=== PATIENT | female | born 1980 | race Caucasian/White ===

== ENCOUNTER 2016-11-16 17:44 | Emergency (ER) | payer BC ==
[~2016-11-16] VITALS: Ht 157.5 cm; Wt 105.7 kg
[~2016-11-16 17:44] MED LIST: CALC625T35 PO; GABA-112 PO; LMC25 PO; LORA-741 PO; QUET5TAB PO
[2016-11-16 17:54] VITALS: Ht 157.5 cm; Wt 105.7 kg
[2016-11-16] MEDS ORDERED: SODIUM CHLORIDE 0.9% 1000ML 1,000 ML IV STA (18:38)
[2016-11-16] MEDS ORDERED: IBUPROFEN 800 MG TAB PO STA (18:38)
[2016-11-16] MEDS ORDERED: IBUPROFEN 200 MG TAB ONE (18:59)
[2016-11-16 19:04] LABS: BASO % 0.2 %; BASO ABS # 0.02 K/uL (0-0.2); COMPLETE YES; EOS % 1.6 %; HEMATOCRIT 38.4 % (37-47); IG% 0.7 %; LYMPH ABS # 1.73 K/uL (1.2-3.4); MEAN CELL VOLUME 80.3 fL (80-100); MEAN CORPUSCULAR HEMOGLOBIN 26.4 pg (25-34); MEAN CORPUSCULAR HGB CONC 32.8 g/dl (32-36); MONO % 5.6 %; NEUT % 70.9 %; PLATELET COUNT 207 K/uL (130-400); RED BLOOD COUNT 4.78 M/uL (4.2-5.4); WHITE BLOOD COUNT 8.24 K/uL (4.8-10.8)
[2016-11-16 19:22] LABS: BUN/CREATININE RATIO 11.3 (10-20); CALCIUM 9.2 mg/dl (8.5-10.1); CREATININE 0.7 mg/dl (0.60-1.20); POTASSIUM 3.8 mmol/L (3.5-5.1)
[2016-11-16 19:25] LABS: ALB/GLOB RATIO 0.9 (0.9-2)
[2016-11-16] MEDS ORDERED: ATV5X PO (19:30)
--- NOTE | 2016-11-16 19:30 | DIAGNOSTIC IMAGING REPORT ---
CHEST 2 VIEWS ROUTINE CLINICAL HISTORY: cough, fever COMPARISON STUDY: 08/24/2016 FINDINGS: The heart is mildly enlarged. There is no focal pulmonary consolidation. There is no failure. There are no pleural effusions.[ IMPRESSION: Mild cardiomegaly. No acute findings. Electronically signed by: Juanito Adkins M.D. 11/16/2016 7:29 PM Dictated Date/Time: 11/16/2016 7:28 PM
[2016-11-16] MEDS ORDERED: BENZ1CAP90 PO (20:37)
[2016-11-16] MEDS ORDERED: ONDA4TAB10 SL (20:37)
[2016-11-16] MEDS ORDERED: HYDR5SYP11 PO (20:37)
--- NOTE | 2016-11-16 20:38 | EMERGENCY ROOM VISIT NOTE ---
History First contact with patient: 18:23 Chief Complaint: FLU LIKE SX Stated Complaint: COUGH,CHEST PAIN,HEADACHE History of Present Illness The patient is a 36 year old female who presents to the Emergency Room with complaints of flulike symptoms. The patient reports that she has had a cough, sinus congestion, body aches and intermittent headaches for the past 4 days. She states the cough has been productive of whitish yellow mucus. She has had some rib and back pain with coughing, but denies pain at rest. The patient has had nausea with multiple episodes of vomiting. She denies any diarrhea. She denies any chest pain or shortness of breath. She denies any abdominal pain. She has not been taking her temperature. She is been trying [id number] medications without relief. She rates her discomfort a 9/10. The patient did not receive a flu vaccine this year. She denies any neck pain or stiffness. Review of Systems A complete 10-point Review of Systems was discussed with the patient, with pertinent positives and negatives listed in the History of Present Illness. All remaining Review of Systems questions can be considered negative unless otherwise specified. Past Medical/Surgical History Medical Problems: (1) Appendectomy (2) Cholecystectomy (3) Endometriosis (4) ITP (idiopathic thrombocytopenic purpura) (5) Kidney stone (6) Migraine (7) Migraines (8) Pyelonephritis (9) Shingles (10) UTI (urinary tract infection) Surgical Problems: (1) H/O: hysterectomy (2) History of appendectomy (3) History of cholecystectomy (4) S/P total hysterectomy and bilateral salpingo-oophorectomy Family History Diabetes mellitus FH: cancer FH: gallbladder disease FH: lung disease Hypertension Kidney disease Kidney stones Seizures Social History Smoking Status: Never Smoker Alcohol Use: occasionally Drug Use: none Marital Status: Housing Status: lives with family Occupation Status: employed Current/Historical Medications Scheduled Gabapentin (Neurontin), 100 MG PO TID Lamotrigine (Lamotrigine), 50 MG PO HS Ondasetron Odt (Zofran Odt), 4 MG SL Q6H Quetiapine Fumarate (Seroquel), 200 MG PO HS Sertraline (Zoloft), 150 MG PO HS Scheduled PRN Benzonatate (Tessalon Perles), 200 MG PO TID PRN for Cough Epinephrine (Epipen), 0.3 MG IM UD PRN for ALLERGIC REACTION Hydrocodone W/ Homatropine (Hycodan 5/1.5MG 5 Ml), 5-10 ML PO Q4H PRN for Cough Lorazepam (Lorazepam), 0.5 MG PO DAILY PRN for Anxiety Rizatriptan Benzoate (Maxalt), 5 MG PO UD PRN for Headache Allergies Coded Allergies: BEE STING (Verified Allergy, Severe, ANAPHYLAXIS, 08/24/16) USES EPIPEN Macrolides and Ketolides (Verified Allergy, Severe, anaphylaxis- see comment, 08/24/16) azithromycin caused throat swelling; erythromycin caused hives Azithromycin (Verified Allergy, Intermediate, ANAPHYLAXIS, 08/24/16) Erythromycin (Verified Allergy, Intermediate, ANAPHYLAXIS, 08/24/16) Physical Exam Vital Signs Date Time Temp Pulse Resp B/P Pulse Ox O2 Delivery O2 Flow Rate FiO2 11/16/16 21:10 36.7 91 18 121/66 97 11/16/16 21:08 91 18 121/66 97 Room Air 11/16/16 20:25 36.7 11/16/16 19:24 92 18 122/71 96 Room Air 11/16/16 17:54 37.7 99 18 126/77 96 Room Air Physical Exam VITALS: Vitals are noted on the nurse's note and reviewed by myself. Vital signs stable. GENERAL: This is a 36-year-old female, in no acute distress, nondiaphoretic, well-developed well-nourished. SKIN: The skin was without rashes, erythema, edema, or bruising. There is no tenting of the skin. Capillary reflex less than 2 seconds. HEAD: Normocephalic atraumatic. EARS: External auditory canals clear, tympanic membranes pearly denney without erythema or effusion bilaterally. EYES: Pupils equal round and reactive to light and accommodation. Conjunctivae without injection, sclerae without icterus. Extraocular movements intact. MOUTH: Mucous membranes moist. Tonsils are not enlarged. Pharynx without erythema or exudate. NECK: Supple without nuchal rigidity. No lymphadenopathy. Kernig's negative. HEART: Regular rate and rhythm without murmurs gallops or rubs. LUNGS: Clear to auscultation bilaterally without wheezes, rales or rhonchi. ABDOMEN: Positive bowel sounds x 4. Soft, nontender to palpation. NEURO: Patient was alert and oriented to person place and time. Medical Decision & Procedures ER Provider Diagnostic Interpretation: CHEST 2 VIEWS ROUTINE CLINICAL HISTORY: cough, fever COMPARISON STUDY: 08/24/2016 FINDINGS: The heart is mildly enlarged. There is no focal pulmonary consolidation. There is no failure. There are no pleural effusions.[ IMPRESSION: Mild cardiomegaly. No acute findings. Laboratory Results 11/16/16 18:50 Red Blood Count 4.78, Mean Corpuscular Volume 80.3, Mean Corpuscular Hemoglobin 26.4, Mean Corpuscular Hemoglobin Concent 32.8, Mean Platelet Volume 10.0, Neutrophils (%) (Auto) 70.9, Lymphocytes (%) (Auto) 21.0, Monocytes (%) (Auto) 5.6, Eosinophils (%) (Auto) 1.6, Basophils (%) (Auto) 0.2, Neutrophils # (Auto) 5.84, Lymphocytes # (Auto) 1.73, Monocytes # (Auto) 0.46, Eosinophils # (Auto) 0.13, Basophils # (Auto) 0.02 11/16/16 18:50 Test 11/16/16 18:50 11/16/16 19:09 White Blood Count 8.24 K/uL (4.8-10.8) Red Blood Count 4.78 M/uL (4.2-5.4) Hemoglobin 12.6 g/dL (12.0-16.0) Hematocrit 38.4 % (37-47) Mean Corpuscular Volume 80.3 fL (80-100) Mean Corpuscular Hemoglobin 26.4 pg (25-34) Mean Corpuscular Hemoglobin Concent 32.8 g/dl (32-36) Platelet Count 207 K/uL (130-400) Mean Platelet Volume 10.0 fL (7.4-10.4) Neutrophils (%) (Auto) 70.9 % Lymphocytes (%) (Auto) 21.0 % Monocytes (%) (Auto) 5.6 % Eosinophils (%) (Auto) 1.6 % Basophils (%) (Auto) 0.2 % Neutrophils # (Auto) 5.84 K/uL (1.4-6.5) Lymphocytes # (Auto) 1.73 K/uL (1.2-3.4) Monocytes # (Auto) 0.46 K/uL (0.11-0.59) Eosinophils # (Auto) 0.13 K/uL (0-0.5) Basophils # (Auto) 0.02 K/uL (0-0.2) RDW Standard Deviation 41.0 fL (36.4-46.3) RDW Coefficient of Variation 14.0 % (11.5-14.5) Immature Granulocyte % (Auto) 0.7 % Immature Granulocyte # (Auto) 0.06 K/uL (0.00-0.02) Anion Gap 11.0 mmol/L (3-11) Est Creatinine Clear Calc Drug Dose 125.7 ml/min Estimated GFR () 128.3 Estimated GFR (Non- 110.7 BUN/Creatinine Ratio 11.3 (10-20) Calcium Level 9.2 mg/dl (8.5-10.1) Total Bilirubin 0.3 mg/dl (0.2-1) Aspartate Amino Transf (AST/SGOT) 9 U/L (15-37) Alanine Aminotransferase (ALT/SGPT) 19 U/L (12-78) Alkaline Phosphatase 103 U/L (45-117) Total Protein 7.9 gm/dl (6.4-8.2) Albumin 3.8 gm/dl (3.4-5.0) Globulin 4.1 gm/dl (2.5-4.0) Albumin/Globulin Ratio 0.9 (0.9-2) Influenza Type A Antigen Neg for Influ A (NEG) Influenza Type B Antigen Neg for Influ B (NEG) Medications Administered Medications (Trade) Dose Ordered Sig/Meron Route Start Time Stop Time Status Last Admin Dose Admin Sodium Chloride (Nss 1000ml) 1,000 ml @ 999 mls/hr Q1H1M STAT IV 11/16/16 18:38 11/16/16 19:38 DC 11/16/16 19:11 999 MLS/HR Ibuprofen (Advil Tab) 800 mg STK-MED ONCE .ROUTE 11/16/16 18:59 11/16/16 19:00 DC 11/16/16 19:11 800 MG Hydrocodone Bit/ Homatropine Methylb (Hycodan Elix Homepack 5/1.5MG/ 5ML) 1 homepack UD ONCE PO 11/16/16 20:45 11/16/16 20:46 DC 11/16/16 21:00 1 HOMEPACK Ondansetron HCl (ZOFRAN ODT 4MG Home Pack) 1 homepack UD ONCE PO 11/16/16 20:45 11/16/16 20:46 DC 11/16/16 21:00 1 HOMEPACK Medical Decision Differential diagnosis includes influenza, pneumonia, viral syndrome, upper respiratory infection, meningitis, encephalitis, sinusitis, among others. The patient was evaluated as above. Labs were drawn and IV access was obtained. Imaging studies were performed and read by radiology as above. The patient was medicated with 1 L normal saline solution and 800 mg ibuprofen orally. The patient was reassessed multiple times during their stay in the emergency department and remained in stable condition. The patient is a 36-year-old female who presents today complaining of flulike symptoms. Labs revealed no leukocytosis, anemia or concerning electrolyte abnormalities. Chest x-ray was negative. The patient did have a low-grade fever on presentation. She was given 800 mg ibuprofen and temperature was rechecked and she was afebrile at that time. There are no signs of meningitis on examination. The patient was given home packs and prescriptions of Hycodan cough syrup and Zofran. She was also given a prescription for Tessalon Perles. She will follow-up with her primary care provider as needed. Based on the patient's presentation, lab results, and imaging studies, I feel the patient is stable for outpatient treatment. Discharge instructions were reviewed with the patient. The patient verbalized understanding of my assessment and treatment plan and was discharged home in good condition. Impression Primary Impression: Influenza-like symptoms Departure Information Dispostion Home / Self-Care Condition GOOD Prescriptions Ondasetron Odt (ZOFRAN ODT) 4 Mg Tab 4 MG SL Q6H for Nausea, #15 TAB Prov: Christie Bañuelos PA-C 11/16/16 Benzonatate (Tessalon Perles) 200 Mg Cap 200 MG PO TID Y for Cough, #30 CAP Prov: Christie Bañuelos PA-C 11/16/16 Hydrocodone W/ Homatropine (HYCODAN 5/1.5MG 5 ML) 1 Syp Syp 5-10 ML PO Q4H Y for Cough, #60 ML Prov: Christie Bañuelos PA-C 11/16/16 Referrals Kristen Crespo PA-C (PCP) Patient Instructions A Signature Page, My [facility] Additional Instructions You were treated today for flulike symptoms. Your influenza swab was negative. This is likely a viral illness. You have been prescribed Zofran to be used for any nausea or vomiting. Take as prescribed. Hycodan cough syrup as needed for cough. This is a narcotic medication. You should not drink alcohol or drive while taking this medication. Tessalon Perles as needed for cough during the day. Follow-up with your primary care provider in 3-4 days if symptoms persist. Return to the emergency department with neck pain, worsening headache, high fevers or any other new/concerning symptoms.
[2016-11-16] MEDS ORDERED: HYCODAN 60ML BOTTLE HOMEPACK PO ONE (20:45)
[2016-11-16] MEDS ORDERED: ONDANSETRON HOME PACK 4MG OD TAB PO ONE (20:45)
[2016-11-16 21:10] VITALS: BP 121/66; PULSE 91; TEMP 36.7; O2SAT 97
[2017-07-03] MEDS ORDERED: SERT-234 PO (10:51)
[2017-07-03] MEDS ORDERED: TRAZ50TA35 PO (11:15)
[2017-07-03] MEDS ORDERED: RANI1TAB75 PO (11:15)
[2017-07-03] MEDS ORDERED: LAMO25TA PO (11:16)
== END 2016-11-16 21:12 | disposition home or self-care (01) ==
LOC: C.EDB 17:45
DX: R09.89 Other specified symptoms and signs involving the circulatory and respiratory systems (principal); R50.9 Fever, unspecified; Z79.899 Other long term (current) drug therapy

== ENCOUNTER → 2017-01-16 | Outpatient (CLI) | payer BC ==
[~2017-01-16] MED LIST changes: +ATV5X PO; +BENZ1CAP90 PO; -CALC625T35 PO; +EPP3/2 IM; +GABA-113 PO; +GLC/500 PO; +IBUP-1451 PO; +LAMO25TA PO; -LORA-741 PO; +ONDA4TAB10 SL; +PRAV20TA PO; +QUET1TAB9 PO; -QUET5TAB PO; +RANI1TAB75 PO; +RIZA5TAB10 PO; +SERT-234 PO; +SERT50TA PO; +SIMV20TA2 PO; +TRAZ50TA35 PO
[2017-01-16 14:49] LABS: BASO % 0.3 %; BASO ABS # 0.02 K/uL (0-0.2); COMPLETE YES; EOS % 3.5 %; HEMATOCRIT 37.6 % (37-47); IG% 0.9 %; LYMPH ABS # 1.83 K/uL (1.2-3.4); MEAN CORPUSCULAR HEMOGLOBIN 25.5 pg (25-34); MEAN CORPUSCULAR HGB CONC 31.9 g/dl (32-36); MEAN PLATELET VOLUME 10.4 fL (7.4-10.4); MONO % 6.6 %; NEUT % 59.7 %; PLATELET COUNT 163 K/uL (130-400); WHITE BLOOD COUNT 6.32 K/uL (4.8-10.8)
[2017-01-16 15:01] LABS: ALT/SGPT 34 U/L (12-78); AST/SGOT 10 U/L (15-37); BLOOD UREA NITROGEN 15 mg/dl (7-18); CALCIUM 8.6 mg/dl (8.5-10.1); CARBON DIOXIDE 29 mmol/L (21-32); CHLORIDE 105 mmol/L (98-107); CHOLESTEROL 229 mg/dl (0-200); CREATININE 0.62 mg/dl (0.60-1.20); GLUCOSE 127 mg/dl (70-99); POTASSIUM 4.1 mmol/L (3.5-5.1); SODIUM 141 mmol/L (136-145)
[2017-01-16 15:03] LABS: ALKALINE PHOSPHATASE 83 U/L (45-117); CHOLESTEROL/HDL RATIO 5.3; HDL CHOLESTEROL 43 mg/dl; LDL CHOLESTEROL CALCULATED 151 mg/dl; TRIGLYCERIDES 173 mg/dl (0-150); VERY LOW DENSITY LIPOPROT CALC 35 mg/dl
== END | disposition home or self-care (01) ==
LOC: C.LABSPEC 10:16
PROVIDERS: ATTEND Psychiatry & Neurology Psychiatry
DX: F31.81 Bipolar II disorder (principal); F32.3 Major depressive disorder, single episode, severe with psychotic features

== ENCOUNTER 2017-01-28 10:30 | Emergency (ER) | payer BC ==
[~2017-01-28] VITALS: Ht 157.5 cm; Wt 115.3 kg
[~2017-01-28 10:30] MED LIST changes: -EPP3/2 IM; -GABA-113 PO; -GLC/500 PO; -IBUP-1451 PO; -LAMO25TA PO; -PRAV20TA PO; -QUET1TAB9 PO; -RANI1TAB75 PO; -RIZA5TAB10 PO; -SERT-234 PO; -SERT50TA PO; -SIMV20TA2 PO; -TRAZ50TA35 PO
[2017-01-28 10:39] VITALS: TEMP 37; Ht 157.5 cm; Wt 115.3 kg
[2017-01-28] MEDS ORDERED: GABA-113 PO (11:15)
[2017-01-28] MEDS ORDERED: SERT50TA PO (11:15)
[2017-01-28] MEDS ORDERED: IBUP-1451 PO (11:15)
[2017-01-28] MEDS ORDERED: SIMV20TA2 PO (11:15)
[2017-01-28] MEDS ORDERED: SODIUM CHLORIDE 0.9% 1000ML 1,000 ML IV ONE (11:30)
[2017-01-28 11:41] LABS: COMPLETE YES; EOS % 1.9 %; HEMATOCRIT 37.8 % (37-47); IG% 0.7 %; LYMPH % 25.1 %; LYMPH ABS # 1.42 K/uL (1.2-3.4); MEAN CELL VOLUME 80.8 fL (80-100); MEAN CORPUSCULAR HEMOGLOBIN 25.6 pg (25-34); MEAN CORPUSCULAR HGB CONC 31.7 g/dl (32-36); MEAN PLATELET VOLUME 10.5 fL (7.4-10.4); NEUT % 67.3 %; PLATELET COUNT 175 K/uL (130-400); RED BLOOD COUNT 4.68 M/uL (4.2-5.4); WHITE BLOOD COUNT 5.65 K/uL (4.8-10.8)
[2017-01-28 11:58] LABS: ALT/SGPT 30 U/L (12-78); AST/SGOT 11 U/L (15-37); BLOOD UREA NITROGEN 12 mg/dl (7-18); BUN/CREATININE RATIO 16.9 (10-20); CALCIUM 8.5 mg/dl (8.5-10.1); CARBON DIOXIDE 27 mmol/L (21-32); CHLORIDE 105 mmol/L (98-107); GLUCOSE 122 mg/dl (70-99); MAGNESIUM 2.2 mg/dl (1.8-2.4); SODIUM 142 mmol/L (136-145)
[2017-01-28 12:01] LABS: MANUAL MICROSCOPIC REQUIRED? NO; REVIEW REQ? NO; URINE APPEARANCE CLEAR (CLEAR); URINE BILIRUBIN NEG (NEG); URINE COLOR YELLOW; URINE NITRITE NEG (NEG); URINE PH 6.5 (4.5-7.5); UROBILINOGEN NEG (NEG)
[2017-01-28 12:02] LABS: ZZUR CULT IF INDIC CLEAN CATCH NO
[2017-01-28 12:09] LABS: ALKALINE PHOSPHATASE 85 U/L (45-117)
[2017-01-28 12:26] LABS: BENZODIAZEPINE, URINE NEG (NEG); COCAINE,URINE NEG (NEG); PHENCYCLIDINE, URINE NEG (NEG)
[2017-01-28 12:51] LABS: LYME DISEASE AB IGG NEG (NEG); LYME DISEASE AB IGM NEG (NEG)
[2017-01-28 13:25] VITALS: BP 126/86; PULSE 91; O2SAT 97
--- NOTE | 2017-01-28 19:05 | EMERGENCY ROOM VISIT NOTE ---
History First contact with patient: 11:00 Chief Complaint: ABNORMAL LABS Stated Complaint: LOW HEMOGLOBIN W/SX WORSENING History of Present Illness The patient is a 36 year old female who presents to the Emergency Room with complaints of fatigue, dizziness, and anemia. The patient states that she went to her primary care physician about a week ago, and had blood work drawn, and was found to be anemic. The patient is unsure of her exact hemoglobin level. The patient states that over the past few days she has had worsening of her symptoms. She has been eating and drinking as normal. No fever or chills, chest pain, chest tightness, or shortness of breath. The patient does have a history of anxiety and depression, for which she is medicated. No suicidal or homicidal ideation. She has not had any changes in her medication. The patient denies chance of and rates her overall discomfort a 5/10. She does not report aggravating or ameliorating symptoms. Review of Systems More than 10 systems were reviewed and otherwise negative with the exception of history of present illness. Past Medical/Surgical History Medical Problems: (1) Appendectomy (2) Cholecystectomy (3) Endometriosis (4) ITP (idiopathic thrombocytopenic purpura) (5) Kidney stone (6) Migraine (7) Migraines (8) Pyelonephritis (9) Shingles (10) UTI (urinary tract infection) Surgical Problems: (1) H/O: hysterectomy (2) History of appendectomy (3) History of cholecystectomy (4) S/P total hysterectomy and bilateral salpingo-oophorectomy Family History Diabetes mellitus FH: cancer FH: gallbladder disease FH: lung disease Hypertension Kidney disease Kidney stones Seizures Social History Smoking Status: Never Smoker Alcohol Use: occasionally Drug Use: none Marital Status: Housing Status: lives with family Occupation Status: employed Current/Historical Medications Scheduled Gabapentin (Neurontin), 300 MG PO HS Lamotrigine (Lamictal), 50 MG PO HS Quetiapine Fumarate (Seroquel), 200 MG PO HS Ranitidine HCl (Ranitidine 75), 75 MG PO QAM Sertraline (Zoloft), 150 MG PO HS Simvastatin (Zocor), 20 MG PO QPM Trazodone Hcl (Trazodone), 50 MG PO HS Scheduled PRN Epinephrine (Epipen), 0.3 MG IM UD PRN for ALLERGIC REACTION Ibuprofen Tab (Motrin), 1 TAB PO TID PRN for Pain Rizatriptan Benzoate (Maxalt), 5 MG PO UD PRN for Headache Allergies Coded Allergies: BEE STING (Verified Allergy, Severe, ANAPHYLAXIS, 01/28/17) USES EPIPEN Macrolides and Ketolides (Verified Allergy, Severe, anaphylaxis- see comment, 01/28/17) azithromycin caused throat swelling; erythromycin caused hives Azithromycin (Verified Allergy, Intermediate, ANAPHYLAXIS, 01/28/17) Erythromycin (Verified Allergy, Intermediate, ANAPHYLAXIS, 01/28/17) Physical Exam Vital Signs Date Time Temp Pulse Resp B/P Pulse Ox O2 Delivery O2 Flow Rate FiO2 01/28/17 13:25 91 20 126/86 97 01/28/17 13:03 91 20 126/86 97 Room Air 01/28/17 11:49 81 20 115/74 98 Room Air 01/28/17 11:35 84 113/81 90 131/88 93 118/83 01/28/17 10:39 37.0 90 18 145/100 97 Room Air Pain Rating (0-10): 0 Physical Exam VITALS: Vitals are noted on the nurse's note and reviewed by myself. Vital signs stable. GENERAL: Well-developed, well-nourished, white female, who is in no acute distress and resting comfortably. Patient is cooperative with the examination. HEAD: Normocephalic atraumatic. EARS: External ear normal. External auditory canals clear, tympanic membranes pearly denney without erythema or effusion bilaterally. EYES: Pupils equal round and reactive to light and accommodation. Conjunctivae without injection, sclerae without icterus. Extraocular movements intact. NOSE: Patent, turbinates without inflammation or discharge. MOUTH: Mucous membranes moist. Tonsils are not enlarged. Pharynx without erythema, blood, or exudate. Uvula midline. Airway patent. NECK: Supple without nuchal rigidity. No lymphadenopathy. No thyromegaly. Cervical spine is nontender. HEART: Regular rate and rhythm without murmurs gallops or rubs. LUNGS: Clear to auscultation bilaterally without wheezes, rales or rhonchi. No retractions or accessory muscle use. ABDOMEN: Positive normal bowel sounds x 4. Soft, nontender, without masses or organomegaly. No guarding or rebound tenderness. MUSCULOSKELETAL: No muscle atrophy, erythema, or edema noted. Full range of motion without joint tenderness in all extremities. No tenderness to palpation. Normal gait. Strength 5/5 throughout. NEURO: Patient was alert and oriented to person place and time. CN II through XII grossly intact. Deep tendon reflexes 2+ throughout. No focal neurological deficits SKIN: The skin was without rashes, erythema, edema, or bruising. Capillary reflex less than 2 seconds. Medical Decision & Procedures Laboratory Results 01/28/17 11:20 Red Blood Count 4.68, Mean Corpuscular Volume 80.8, Mean Corpuscular Hemoglobin 25.6, Mean Corpuscular Hemoglobin Concent 31.7, Mean Platelet Volume 10.5, Neutrophils (%) (Auto) 67.3, Lymphocytes (%) (Auto) 25.1, Monocytes (%) (Auto) 5.0, Eosinophils (%) (Auto) 1.9, Basophils (%) (Auto) 0.0, Neutrophils # (Auto) 3.80, Lymphocytes # (Auto) 1.42, Monocytes # (Auto) 0.28, Eosinophils # (Auto) 0.11, Basophils # (Auto) 0.00 01/28/17 11:20 Test 01/28/17 11:20 01/28/17 11:40 White Blood Count 5.65 K/uL (4.8-10.8) Red Blood Count 4.68 M/uL (4.2-5.4) Hemoglobin 12.0 g/dL (12.0-16.0) Hematocrit 37.8 % (37-47) Mean Corpuscular Volume 80.8 fL (80-100) Mean Corpuscular Hemoglobin 25.6 pg (25-34) Mean Corpuscular Hemoglobin Concent 31.7 g/dl (32-36) Platelet Count 175 K/uL (130-400) Mean Platelet Volume 10.5 fL (7.4-10.4) Neutrophils (%) (Auto) 67.3 % Lymphocytes (%) (Auto) 25.1 % Monocytes (%) (Auto) 5.0 % Eosinophils (%) (Auto) 1.9 % Basophils (%) (Auto) 0.0 % Neutrophils # (Auto) 3.80 K/uL (1.4-6.5) Lymphocytes # (Auto) 1.42 K/uL (1.2-3.4) Monocytes # (Auto) 0.28 K/uL (0.11-0.59) Eosinophils # (Auto) 0.11 K/uL (0-0.5) Basophils # (Auto) 0.00 K/uL (0-0.2) RDW Standard Deviation 43.5 fL (36.4-46.3) RDW Coefficient of Variation 14.7 % (11.5-14.5) Immature Granulocyte % (Auto) 0.7 % Immature Granulocyte # (Auto) 0.04 K/uL (0.00-0.02) Anion Gap 10.0 mmol/L (3-11) Est Creatinine Clear Calc Drug Dose 132.3 ml/min Estimated GFR () 128.3 Estimated GFR (Non- 110.7 BUN/Creatinine Ratio 16.9 (10-20) Calcium Level 8.5 mg/dl (8.5-10.1) Magnesium Level 2.2 mg/dl (1.8-2.4) Total Bilirubin 0.3 mg/dl (0.2-1) Aspartate Amino Transf (AST/SGOT) 11 U/L (15-37) Alanine Aminotransferase (ALT/SGPT) 30 U/L (12-78) Alkaline Phosphatase 85 U/L (45-117) Total Creatine Kinase 52 U/L (26-192) Creatine Kinase MB < 0.5 ng/ml (0.5-3.6) Creatine Kinase MB Ratio (0-3.0) Troponin I < 0.015 ng/ml (0-0.045) Total Protein 7.0 gm/dl (6.4-8.2) Albumin 3.5 gm/dl (3.4-5.0) Globulin 3.5 gm/dl (2.5-4.0) Albumin/Globulin Ratio 1.0 (0.9-2) Thyroid Stimulating Hormone (TSH) 2.720 uIu/ml (0.300-4.500) Lyme Disease IgG Antibody NEG (NEG) Lyme Disease IgM Antibody NEG (NEG) Monoscreen NEG (NEG) Urine Color YELLOW Urine Appearance CLEAR (CLEAR) Urine pH 6.5 (4.5-7.5) Urine Specific Platter 1.010 (1.000-1.030) Urine Protein NEG (NEG) Urine Glucose (UA) NEG (NEG) Urine Ketones NEG (NEG) Urine Occult Blood NEG (NEG) Urine Nitrite NEG (NEG) Urine Bilirubin NEG (NEG) Urine Urobilinogen NEG (NEG) Urine Leukocyte Esterase NEG (NEG) Urine Test NEG (NEG) Urine Opiates Screen NEG (NEG) Urine Methadone, Qualitative NEG (NEG) Urine Barbiturates NEG (NEG) Urine Phencyclidine (PCP) Level NEG (NEG) Ur Amphetamine/Methamphetamine NEG (NEG) MDMA (Ecstasy) Screen NEG (NEG) Urine Benzodiazepines Screen NEG (NEG) Urine Cocaine Metabolite NEG (NEG) Urine Marijuana (THC) NEG (NEG) Medications Administered Medications (Trade) Dose Ordered Sig/Meron Route Start Time Stop Time Status Last Admin Dose Admin Sodium Chloride (Nss 1000ml) 1,000 ml @ 999 mls/hr Q1H1M ONCE IV 01/28/17 11:30 01/28/17 12:30 DC 01/28/17 11:48 999 MLS/HR ED Course Physical exam and history were performed. Nursing notes and EMR were reviewed. Patient appears to have reports of generalized fatigue worsening over the past week. The patient states that she was found to be anemic by outpatient testing which is not available to me. The patient does not appear toxic on examination , and her physical exam is without significant findings. IV access was established and labs were obtained. The patient was hydrated with normal saline. The patient blood work is as above and was reviewed. She does not have a significantly elevated white blood cell count, anemia, bandemia, or gross electrolyte imbalance. Lipase and transaminases are nondiagnostic. TSH is normal. Urine is without signs of infection or drugs of abuse. Troponin 1 is negative. CK and CK-MB are both normal. Lyme disease is negative. I had a lengthy discussion with the patient regarding her diagnostic findings. She does not appear to have any immediately life-threatening process or significant imbalance on labs. Repeat examination does not show any worsening of her symptoms. She is not anemic as she was clinically concerned. Overall she is stable for discharge home. Her symptoms may be the result of her medications or possibly worsening stressors/mental health in her personal life. The patient was asked to follow with her primary care physician in the next few days for recheck of her condition. She was otherwise invited back to the ER with any new, worsening, or concerning symptoms. The chart was completed utilizing [employer] Voice [employer]ognition Software. Grammatical errors, random word insertions, pronoun errors, and incomplete sentences are an occasional consequence of this system due to software limitations, ambient noise, and hardware issues. Any formal questions or concerns about the content, text, or information contained within the body of this dictation should be directly addressed to the provider for clarification. . Medical Decision Differential diagnosis: Etiologies such as metabolic, infection, hypo/hyperglycemia, electrolyte abnormalities, cardiac sources, intracerebral event, toxicologic, neurologic, as well as others were entertained. Impression Primary Impression: Malaise and fatigue Departure Information Dispostion Home / Self-Care Condition GOOD Forms HOME CARE DOCUMENTATION FORM, IMPORTANT VISIT INFORMATION Patient Instructions My [facility] Additional Instructions You were seen and evaluated today on an emergency basis only. This is not a substitute for, or an effort to provide, complete comprehensive medical care. It is not possible to recognize and treat all injuries or illnesses in a single emergency department visit. For this reason it is recommended that you followup with your primary care physician this week for ongoing care and evaluation. Drink plenty fluids and remain well hydrated. Continue medications as previously prescribed. You are welcome to return to the emergency department anytime with new, worsening, or concerning symptoms.
[2017-07-03] MEDS ORDERED: SERT-234 PO (10:51)
[2017-07-03] MEDS ORDERED: RANI1TAB75 PO (11:15)
[2017-07-03] MEDS ORDERED: TRAZ50TA35 PO (11:15)
[2017-07-03] MEDS ORDERED: LAMO25TA PO (11:16)
== END 2017-01-28 13:31 | disposition home or self-care (01) ==
LOC: C.EDB 10:32 → C.EDC 13:31
DX: R53.83 Other fatigue (principal); Z90.49 Acquired absence of other specified parts of digestive tract

== ENCOUNTER 2017-04-15 14:36 | Emergency (ER) | payer BC ==
[~2017-04-15] VITALS: Ht 157.5 cm; Wt 120.0 kg
[~2017-04-15 14:36] MED LIST changes: -ATV5X PO; -BENZ1CAP90 PO; -GABA-112 PO; +GABA-113 PO; +IBUP-1451 PO; -LMC25 PO; -ONDA4TAB10 SL; +SIMV20TA2 PO
[2017-04-15 14:40] VITALS: TEMP 36.7; Ht 157.5 cm; Wt 120.0 kg
[2017-04-15] MEDS ORDERED: MoRPHine SULFATE 10 MG/ML CARP/VIAL IV STA (15:09)
[2017-04-15] MEDS ORDERED: ONDANSETRON INJ 2 MG/ML 2 ML VIAL IV STA (15:09)
[2017-04-15] MEDS ORDERED: SODIUM CHLORIDE 0.9% 1000ML 1,000 ML IV STA (15:09)
[2017-04-15 15:16] LABS: BASO % 0.2 %; BASO ABS # 0.01 K/uL (0-0.2); COMPLETE YES; EOS % 2.4 %; HEMATOCRIT 40.8 % (37-47); IG% 1.4 %; LYMPH % 28.8 %; LYMPH ABS # 1.66 K/uL (1.2-3.4); MEAN CELL VOLUME 80.5 fL (80-100); MEAN CORPUSCULAR HEMOGLOBIN 25.2 pg (25-34); MEAN CORPUSCULAR HGB CONC 31.4 g/dl (32-36); MEAN PLATELET VOLUME 9.9 fL (7.4-10.4); MONO % 4.7 %; NEUT % 62.5 %; PLATELET COUNT 178 K/uL (130-400); RED BLOOD COUNT 5.07 M/uL (4.2-5.4); WHITE BLOOD COUNT 5.77 K/uL (4.8-10.8)
[2017-04-15 15:24] LABS: BUN/CREATININE RATIO 15.3 (10-20); CALCIUM 8.9 mg/dl (8.5-10.1); CREATININE 0.65 mg/dl (0.60-1.20); POTASSIUM 3.9 mmol/L (3.5-5.1)
[2017-04-15 15:26] LABS: ALB/GLOB RATIO 1.1 (0.9-2)
[2017-04-15 15:44] LABS: PREG INTERNAL NEGATIVE QC NEG CLEAR BACKGROUND; PREG INTERNAL POSITIVE QC POS CONTROL LINE
[2017-04-15 15:45] LABS: MANUAL MICROSCOPIC REQUIRED? NO; REVIEW REQ? NO; URINE APPEARANCE CLEAR (CLEAR); URINE BILIRUBIN NEG (NEG); URINE COLOR YELLOW; URINE EPITHELIAL CELL AUTO >30 /lpf (0-5); URINE NITRITE NEG (NEG); URINE PH 7.5 (4.5-7.5); URINE SPECIFIC GRAVITY 1.007 (1.000-1.030); UROBILINOGEN NEG (NEG); ZZUR CULT IF INDIC CLEAN CATCH YES
--- NOTE | 2017-04-15 16:13 | EMERGENCY ROOM VISIT NOTE ---
History First contact with patient: 14:57 Chief Complaint: FLANK PAIN Stated Complaint: LEFT FLANK AND ABDOMEN PAIN,BLOOD IN URINE History of Present Illness The patient is a 36 year old female who presents to the Emergency Room with complaints of left flank pain and hematuria. The patient states that since this morning, she has been feeling nauseous and has had vomiting. She reports bilateral flank pain with worse pain in the left flank. She states that she feels she is urinating more frequently and is not emptying her bladder completely. She reports hematuria. She reports a history of both kidney stones and urinary tract infections. She follows with [facility] urology. She had a lithotripsy in July of last year. She reports some slight abdominal pain. She rates her overall discomfort a 9/10. She denies any fevers /chills, chest pain, shortness of breath or changes in bowel movements. Review of Systems A complete 10 point review of systems was reviewed with the patient with pertinent positives and negatives as per history of present illness. All else were negative. Past Medical/Surgical History Medical Problems: (1) Appendectomy (2) Cholecystectomy (3) Endometriosis (4) ITP (idiopathic thrombocytopenic purpura) (5) Kidney stone (6) Migraine (7) Migraines (8) Pyelonephritis (9) Shingles (10) UTI (urinary tract infection) Surgical Problems: (1) H/O: hysterectomy (2) History of appendectomy (3) History of cholecystectomy (4) S/P total hysterectomy and bilateral salpingo-oophorectomy Family History Diabetes mellitus FH: cancer FH: gallbladder disease FH: lung disease Hypertension Kidney disease Kidney stones Seizures Social History Smoking Status: Never Smoker Alcohol Use: occasionally Drug Use: none Marital Status: Housing Status: lives with family Occupation Status: employed Current/Historical Medications Scheduled Lamotrigine (Lamictal), 25 MG PO HS Quetiapine Fumarate (Seroquel), 200 MG PO HS Ranitidine HCl (Ranitidine 75), 75 MG PO QAM Sertraline (Zoloft), 100 MG PO HS Trazodone Hcl (Trazodone), 50 MG PO HS Scheduled PRN Epinephrine (Epipen), 0.3 MG IM UD PRN for ALLERGIC REACTION Ibuprofen Tab (Motrin), 1 TAB PO TID PRN for Pain Rizatriptan Benzoate (Maxalt), 5 MG PO UD PRN for Headache Allergies Coded Allergies: BEE STING (Verified Allergy, Severe, ANAPHYLAXIS, 01/28/17) USES EPIPEN Macrolides and Ketolides (Verified Allergy, Severe, anaphylaxis- see comment, 01/28/17) azithromycin caused throat swelling; erythromycin caused hives Azithromycin (Verified Allergy, Intermediate, ANAPHYLAXIS, 01/28/17) Erythromycin (Verified Allergy, Intermediate, ANAPHYLAXIS, 01/28/17) Physical Exam Vital Signs Date Time Temp Pulse Resp B/P (MAP) Pulse Ox O2 Delivery O2 Flow Rate FiO2 04/15/17 18:52 93 16 116/74 96 04/15/17 17:30 92 16 95 Room Air 04/15/17 16:34 95 16 131/83 94 Room Air 04/15/17 14:40 36.7 81 18 130/90 97 Room Air Physical Exam VITALS: Vitals are noted on the nurse's note and reviewed by myself. Vital signs stable. GENERAL: This is a 36-year-old female, in no acute distress, nondiaphoretic, well-developed well-nourished. SKIN: Capillary reflex less than 2 seconds. HEENT: Normocephalic. PERRLA. EOMI. Nares patent. Mucous membranes moist. Neck is supple without nuchal rigidity. HEART: Regular rate and rhythm without murmurs gallops or rubs. LUNGS: Clear to auscultation bilaterally without wheezes, rales or rhonchi. ABDOMEN: Positive bowel sounds x 4. Soft, no significant tenderness to palpation. MUSCULOSKELETAL: Mild right CVA tenderness, moderate left CVA tenderness. NEURO: Patient was alert and oriented to person place and time. Medical Decision & Procedures ER Provider Diagnostic Interpretation: KUB FINDINGS: The bowel gas pattern is unremarkable. There are no dilated loops of small bowel to suggest an obstruction. Suture material within the right lower quadrant which may be due to prior appendectomy. No pneumoperitoneum or pneumatosis. Cholecystectomy. IMPRESSION: No renal or ureteral stones. RENAL ULTRASOUND FINDINGS: Right kidney: 10.2 cm. No hydronephrosis. Normal corticomedullary differentiation and cortical thickness. Left kidney: 11.4 cm. No hydronephrosis. Normal corticomedullary differentiation and cortical thickness. Small cystic focus within the upper aspect of the left renal sinus. This favors a small parapelvic cyst. Bladder: No bladder wall thickening. The bilateral ureteral jets were identified. IMPRESSION: No hydronephrosis. Laboratory Results 04/15/17 15:00 Red Blood Count 5.07, Mean Corpuscular Volume 80.5, Mean Corpuscular Hemoglobin 25.2, Mean Corpuscular Hemoglobin Concent 31.4, Mean Platelet Volume 9.9, Neutrophils (%) (Auto) 62.5, Lymphocytes (%) (Auto) 28.8, Monocytes (%) (Auto) 4.7, Eosinophils (%) (Auto) 2.4, Basophils (%) (Auto) 0.2, Neutrophils # (Auto) 3.61, Lymphocytes # (Auto) 1.66, Monocytes # (Auto) 0.27, Eosinophils # (Auto) 0.14, Basophils # (Auto) 0.01 04/15/17 15:00 Test 04/15/17 14:56 04/15/17 15:00 Urine Color YELLOW Urine Appearance CLEAR (CLEAR) Urine pH 7.5 (4.5-7.5) Urine Specific [place] 1.007 (1.000-1.030) Urine Protein NEG (NEG) Urine Glucose (UA) NEG (NEG) Urine Ketones NEG (NEG) Urine Occult Blood NEG (NEG) Urine Nitrite NEG (NEG) Urine Bilirubin NEG (NEG) Urine Urobilinogen NEG (NEG) Urine Leukocyte Esterase TRACE (NEG) Urine WBC (Auto) 1-5 /hpf (0-5) Urine RBC (Auto) 0-4 /hpf (0-4) Urine Hyaline Casts (Auto) 0 /lpf (0-5) Urine Epithelial Cells (Auto) >30 /lpf (0-5) Urine Bacteria (Auto) 1+ (NEG) Urine Test NEG (NEG) White Blood Count 5.77 K/uL (4.8-10.8) Red Blood Count 5.07 M/uL (4.2-5.4) Hemoglobin 12.8 g/dL (12.0-16.0) Hematocrit 40.8 % (37-47) Mean Corpuscular Volume 80.5 fL (80-100) Mean Corpuscular Hemoglobin 25.2 pg (25-34) Mean Corpuscular Hemoglobin Concent 31.4 g/dl (32-36) Platelet Count 178 K/uL (130-400) Mean Platelet Volume 9.9 fL (7.4-10.4) Neutrophils (%) (Auto) 62.5 % Lymphocytes (%) (Auto) 28.8 % Monocytes (%) (Auto) 4.7 % Eosinophils (%) (Auto) 2.4 % Basophils (%) (Auto) 0.2 % Neutrophils # (Auto) 3.61 K/uL (1.4-6.5) Lymphocytes # (Auto) 1.66 K/uL (1.2-3.4) Monocytes # (Auto) 0.27 K/uL (0.11-0.59) Eosinophils # (Auto) 0.14 K/uL (0-0.5) Basophils # (Auto) 0.01 K/uL (0-0.2) RDW Standard Deviation 42.4 fL (36.4-46.3) RDW Coefficient of Variation 14.5 % (11.5-14.5) Immature Granulocyte % (Auto) 1.4 % Immature Granulocyte # (Auto) 0.08 K/uL (0.00-0.02) Anion Gap 7.0 mmol/L (3-11) Est Creatinine Clear Calc Drug Dose 146.0 ml/min Estimated GFR () 131.5 Estimated GFR (Non- 113.4 BUN/Creatinine Ratio 15.3 (10-20) Calcium Level 8.9 mg/dl (8.5-10.1) Total Bilirubin 0.3 mg/dl (0.2-1) Aspartate Amino Transf (AST/SGOT) 16 U/L (15-37) Alanine Aminotransferase (ALT/SGPT) 41 U/L (12-78) Alkaline Phosphatase 88 U/L (45-117) Total Protein 7.6 gm/dl (6.4-8.2) Albumin 3.9 gm/dl (3.4-5.0) Globulin 3.7 gm/dl (2.5-4.0) Albumin/Globulin Ratio 1.1 (0.9-2) Lipase 96 U/L (73-393) Medications Administered Medications (Trade) Dose Ordered Sig/Meron Route Start Time Stop Time Status Last Admin Dose Admin Sodium Chloride 1,000 ml @ 999 mls/hr Q1H1M STAT IV 04/15/17 15:09 04/15/17 16:09 DC 04/15/17 15:54 999 MLS/HR Morphine Sulfate (MoRPHine SULFATE INJ) 8 mg NOW STAT IV 04/15/17 15:09 04/15/17 15:12 DC 04/15/17 15:55 8 MG Ondansetron HCl (Zofran Inj) 4 mg NOW STAT IV 04/15/17 15:09 04/15/17 15:12 DC 04/15/17 15:54 4 MG Morphine Sulfate (MoRPHine SULFATE INJ) 4 mg NOW STAT IV 04/15/17 17:35 04/15/17 17:36 DC 04/15/17 17:47 4 MG ED Course The patient was evaluated as above. Labs were drawn and IV access was obtained. Patient was medicated with 8 mg morphine IV, 4 mg Zofran IV and 1 L normal saline solution. KUB and renal ultrasound were performed and read by radiology as above. Patient was reevaluated and had additional pain. She was given 4 mg morphine IV. Findings were discussed. Discharge instructions were reviewed with the patient. The patient verbalized understanding of my assessment and treatment plan and was discharged home in good condition. Medical Decision Differential diagnosis includes pyelonephritis, kidney stone, musculoskeletal pain, pancreatitis, gastroenteritis, colitis, cholecystitis, among others. The patient is a 36-year-old female who presents today complaining of left flank pain. The patient has been evaluated here multiple times previously for flank pain. She has had multiple CT scans in the past. Labs revealed no leukocytosis, anemia or concerning electrolyte abnormalities. KUB and renal ultrasound did not show evidence of a stone. Urinalysis showed 1+ bacteria, but also was positive for greater than 30 epithelial cells and I feel this likely represents contamination. I did review previous urine cultures. The patient has had multiple urine cultures in the past year and they have all been negative. She does not have a fever or leukocytosis. I do not feel that this represents pyelonephritis. Culture is pending and the patient was informed that she will be treated if her urine culture becomes positive. Blood pressure screening: Patient was found to have normal blood pressure on screening and does not require follow-up. Medication reconciliation: I attest that I have personally reviewed the patient' s current medication list. Based on the patient's presentation and work up, I feel the patient is stable for outpatient treatment. The patient was educated to return to the emergency department for any worsening of their current condition or new/concerning symptoms. She will follow up with her primary care provider for further evaluation. Impression Primary Impression: Left flank pain Departure Information Dispostion Home / Self-Care Condition GOOD Referrals Kristen Crespo PA-C (PCP) Patient Instructions My [facility] Additional Instructions Ultrasound an x-ray today showed no evidence of a kidney stone. Your urine was sent for a culture. You will be notified within a few days if your culture is positive. For pain control, you can use the following [id number] medicines (if >12 yo): - Regular strength (325mg/tab) Tylenol (acetaminophen) 2 tabs every 4-6 hours as needed. Do not exceed 12 tablets in a 24 hour period. Avoid taking more than 4 grams (4000 mg) of Tylenol per day. This includes any other sources of acetaminophen you may take on a regular basis. - Regular strength (200 mg/tab) Advil (ibuprofen) 1-2 tabs every 4-6 hours as needed. Do not exceed a dose of 3200 mg per day. Follow-up with your primary care provider.
--- NOTE | 2017-04-15 16:53 | DIAGNOSTIC IMAGING REPORT ---
KUB HISTORY: left flank pain, hx stones COMPARISON: IVP 09/25/2016. FINDINGS: The bowel gas pattern is unremarkable. There are no dilated loops of small bowel to suggest an obstruction. Suture material within the right lower quadrant which may be due to prior appendectomy. No pneumoperitoneum or pneumatosis. Cholecystectomy. IMPRESSION: No renal or ureteral stones. Electronically signed by: Jluis Crooks M.D. 04/15/2017 4:52 PM Dictated Date/Time: 04/15/2017 4:50 PM
--- NOTE | 2017-04-15 17:21 | DIAGNOSTIC IMAGING REPORT ---
RENAL ULTRASOUND HISTORY: left flank pain, hx stones COMPARISON: Renal ultrasound 08/17/2016. FINDINGS: Right kidney: 10.2 cm. No hydronephrosis. Normal corticomedullary differentiation and cortical thickness. Left kidney: 11.4 cm. No hydronephrosis. Normal corticomedullary differentiation and cortical thickness. Small cystic focus within the upper aspect of the left renal sinus. This favors a small parapelvic cyst. Bladder: No bladder wall thickening. The bilateral ureteral jets were identified. IMPRESSION: No hydronephrosis. Electronically signed by: Jluis Crooks M.D. 04/15/2017 5:20 PM Dictated Date/Time: 04/15/2017 5:19 PM
[2017-04-15] MEDS ORDERED: MoRPHine SULFATE 4 MG/ML 1 ML CARP\\VIAL IV STA (17:35)
[2017-04-15 18:52] VITALS: BP 116/74; PULSE 93; O2SAT 96
[2017-07-03] MEDS ORDERED: SERT-234 PO (10:51)
[2017-07-03] MEDS ORDERED: TRAZ50TA35 PO (11:15)
[2017-07-03] MEDS ORDERED: RANI1TAB75 PO (11:15)
[2017-07-03] MEDS ORDERED: LAMO25TA PO (11:16)
[2017-09-07] MEDS ORDERED: PRAV40TA2 PO (09:51)
[2017-09-07] MEDS ORDERED: GLCSR/500 PO (09:51)
[2017-09-07] MEDS ORDERED: QUET1TAB10 PO (09:51)
[2017-09-07] MEDS ORDERED: FIBE1CHW PO (09:52)
[2017-09-08] MEDS ORDERED: NXM/40 PO (18:39)
== END 2017-04-15 18:40 | disposition home or self-care (01) ==
LOC: C.EDB 14:38
DX: R10.84 Generalized abdominal pain (principal); D69.3 Immune thrombocytopenic purpura; N12 Tubulo-interstitial nephritis, not specified as acute or chronic; Z83.3 Family history of diabetes mellitus; Z82.49 Family history of ischemic heart disease and other diseases of the circulatory system; Z82.0 Family history of epilepsy and other diseases of the nervous system

== ENCOUNTER 2017-07-03 13:20 | Emergency (ER) | payer BC ==
[~2017-07-03] VITALS: Ht 157.5 cm; Wt 117.9 kg
[~2017-07-03 13:20] MED LIST changes: -GABA-113 PO; +LAMO25TA PO; +RANI1TAB75 PO; +SERT-234 PO; -SIMV20TA2 PO; +TRAZ50TA35 PO
[2017-07-03 13:22] VITALS: Ht 157.5 cm; Wt 117.9 kg
[2017-07-03 14:07] LABS: BASO % 0.2 %; BASO ABS # 0.01 K/uL (0-0.2); COMPLETE YES; EOS % 2.1 %; HEMATOCRIT 40.6 % (37-47); IG% 0.8 %; LYMPH % 29.2 %; LYMPH ABS # 1.81 K/uL (1.2-3.4); MEAN CELL VOLUME 81.4 fL (80-100); MEAN CORPUSCULAR HEMOGLOBIN 26.1 pg (25-34); MEAN PLATELET VOLUME 10.3 fL (7.4-10.4); MONO % 5.5 %; NEUT % 62.2 %; PLATELET COUNT 174 K/uL (130-400); RED BLOOD COUNT 4.99 M/uL (4.2-5.4); WHITE BLOOD COUNT 6.19 K/uL (4.8-10.8)
[2017-07-03] MEDS ORDERED: GLC/500 PO (14:07)
[2017-07-03] MEDS ORDERED: PRAV20TA PO (14:07)
[2017-07-03] MEDS ORDERED: SODIUM CHLORIDE 0.9% 1000ML 1,000 ML IV STA (14:21)
[2017-07-03] MEDS ORDERED: MoRPHine SULFATE 4 MG/ML 1 ML CARP\\VIAL IV STA (14:21)
[2017-07-03] MEDS ORDERED: ONDANSETRON INJ 2 MG/ML 2 ML VIAL IV STA (14:21)
[2017-07-03 14:24] LABS: CREATININE 0.69 mg/dl (0.60-1.20)
[2017-07-03 14:25] LABS: CALCIUM 9.4 mg/dl (8.5-10.1); POTASSIUM 4.1 mmol/L (3.5-5.1)
[2017-07-03 14:28] LABS: ALB/GLOB RATIO 1.1 (0.9-2)
[2017-07-03 14:29] LABS: URINE APPEARANCE CLEAR (CLEAR); URINE BILIRUBIN NEG (NEG); URINE COLOR YELLOW; URINE NITRITE NEG (NEG); URINE SPECIFIC GRAVITY 1.014 (1.000-1.030); UROBILINOGEN NEG (NEG); ZZUR CULT IF INDIC CLEAN CATCH NO
--- NOTE | 2017-07-03 14:34 | EMERGENCY ROOM VISIT NOTE ---
History First contact with patient: 14:12 Chief Complaint: ABDOMINAL PAIN Stated Complaint: AB PAIN;RIGHT SIDED BACK PAIN Nursing Triage Summary: Abd pain and right flank pain, nausea, lightheaded. Kidney stone history. Denies urinary symptoms. History of Present Illness The patient is a 37 year old female who presents to the Emergency Room with complaints of right flank and right abdominal pain. The patient states her pain started this morning. She rates her discomfort a 9/10. The pain is in the right flank and radiates to the right lower abdomen. The patient reports associated nausea. The patient denies any dysuric emergency, frequency, hematuria. She has a history of kidney stones. She has also had cholecystectomy, appendectomy and complete hysterectomy in the past. She denies any fevers. She denies any pain in her chest or trouble breathing. Review of Systems A 10 system review of systems was completed with positives and pertinent negatives listed in the HPI. Past Medical/Surgical History Medical Problems: (1) Appendectomy (2) Cholecystectomy (3) Endometriosis (4) ITP (idiopathic thrombocytopenic purpura) (5) Kidney stone (6) Migraine (7) Migraines (8) Pyelonephritis (9) Shingles (10) UTI (urinary tract infection) Surgical Problems: (1) H/O: hysterectomy (2) History of appendectomy (3) History of cholecystectomy (4) S/P total hysterectomy and bilateral salpingo-oophorectomy Family History Diabetes mellitus FH: cancer FH: gallbladder disease FH: lung disease Hypertension Kidney disease Kidney stones Seizures Social History Smoking Status: Never Smoker Alcohol Use: occasionally Drug Use: none Marital Status: Housing Status: lives with family Occupation Status: employed Current/Historical Medications Scheduled Lamotrigine (Lamictal), 25 MG PO HS Metformin Hcl (Glucophage), 500 MG PO BID Pravastatin (Pravachol ), 20 MG PO HS Quetiapine Fumarate (Seroquel), 200 MG PO HS Ranitidine HCl (Ranitidine 75), 75 MG PO QAM Sertraline (Zoloft), 100 MG PO HS Trazodone Hcl (Trazodone), 50 MG PO HS Scheduled PRN Epinephrine (Epipen), 0.3 MG IM UD PRN for ALLERGIC REACTION Rizatriptan Benzoate (Maxalt), 5 MG PO UD PRN for Headache Allergies Coded Allergies: BEE STING (Verified Allergy, Severe, ANAPHYLAXIS, 07/03/17) USES EPIPEN Macrolides and Ketolides (Verified Allergy, Severe, anaphylaxis- see comment, 07/03/17) azithromycin caused throat swelling; erythromycin caused hives Azithromycin (Verified Allergy, Intermediate, ANAPHYLAXIS, 07/03/17) Erythromycin (Verified Allergy, Intermediate, ANAPHYLAXIS, 07/03/17) Physical Exam Vital Signs Date Time Temp Pulse Resp B/P (MAP) Pulse Ox O2 Delivery O2 Flow Rate FiO2 07/03/17 15:31 36.7 71 16 132/85 100 07/03/17 15:16 71 132/85 100 07/03/17 13:22 36.7 88 16 134/90 97 Room Air Physical Exam VITALS: Vitals are noted on the nurse's note and reviewed by myself. Vital signs stable. GENERAL: This is a 37-year-old femaleo acute distress, nondiaphoretic, well- developed well-nourished. SKIN: The skin was without rashes, erythema, edema, or bruising. There is no tenting of the skin. Capillary reflex less than 2 seconds. HEAD: Normocephalic atraumatic. EARS: The external ears are normal in appearance. EYES: Pupils equal round and reactive to light and accommodation. Conjunctivae without injection, sclerae without icterus. Extraocular movements intact. NOSE: Patent, turbinates without inflammation or discharge. MOUTH: Mucous membranes moist. Tongue does not deviate. NECK: Supple without nuchal rigidity. No lymphadenopathy. No thyromegaly. Cervical spine is nontender. No JVD. HEART: Regular rate and rhythm without murmurs gallops or rubs. LUNGS: Clear to auscultation bilaterally without wheezes, rales or rhonchi. No retractions or accessory muscle use. ABDOMEN: Positive bowel sounds x 4. Soft, mild diffuse tenderness, moderate right lower tenderness, without masses or organomegaly. MUSCULOSKELETAL: No muscle atrophy, erythema, or edema noted. Full range of motion in all extremities. Normal gait. Strength 5/5 throughout. NEURO: Patient was alert and oriented to person place and time. No focal neurological deficits. Medical Decision & Procedures ER Provider Diagnostic Interpretation: ABD/PELVIS WITHOUT FOR STONE HISTORY: 37 years-old Female right flank pain, h/o stones COMPARISON: CTA 08/24/2016 TECHNIQUE: Multiple axial CT images of the abdomen and pelvis were obtained without IV contrast. A dose lowering technique was used consistent with the principals of NASIR. FINDINGS: The imaged lung bases are generally clear. There is no pneumoperitoneum identified. The imaged inferior cardiac chambers are unremarkable. Prior cholecystectomy. Hepatomegaly with hepatosteatosis is redemonstrated. Spleen, pancreas and adrenal glands are unremarkable. 2 nonobstructing renal calculi are present in the left kidney measuring up to 3 mm. 2 mm nonobstructing calculus involves the superior pole right kidney. No ureteral calculi or obstructive uropathy identified. Urinary bladder, uterus and adnexa are within normal limits. The abdominal aorta is normal in both course and caliber. There is no bulky retroperitoneal adenopathy. There is no bowel obstruction. There are a few scattered noninflamed colonic diverticula. Surgical clips are seen along the cecum suggesting prior appendectomy. Patient obesity is noted. Degenerative changes involve the bilateral sacroiliac joints. The bones appear intact. IMPRESSION: 1. Bilateral nonobstructing renal calculi. No obstructive uropathy or ureteral calculi identified. 2. Hepatomegaly with hepatosteatosis. 3. Prior cholecystectomy and appendectomy. Laboratory Results 07/03/17 12:50 Red Blood Count 4.99, Mean Corpuscular Volume 81.4, Mean Corpuscular Hemoglobin 26.1, Mean Corpuscular Hemoglobin Concent 32.0, Mean Platelet Volume 10.3, Neutrophils (%) (Auto) 62.2, Lymphocytes (%) (Auto) 29.2, Monocytes (%) (Auto) 5.5, Eosinophils (%) (Auto) 2.1, Basophils (%) (Auto) 0.2, Neutrophils # (Auto) 3.85, Lymphocytes # (Auto) 1.81, Monocytes # (Auto) 0.34, Eosinophils # (Auto) 0.13, Basophils # (Auto) 0.01 07/03/17 12:50 Test 07/03/17 12:50 07/03/17 13:50 White Blood Count 6.19 K/uL (4.8-10.8) Red Blood Count 4.99 M/uL (4.2-5.4) Hemoglobin 13.0 g/dL (12.0-16.0) Hematocrit 40.6 % (37-47) Mean Corpuscular Volume 81.4 fL (80-100) Mean Corpuscular Hemoglobin 26.1 pg (25-34) Mean Corpuscular Hemoglobin Concent 32.0 g/dl (32-36) Platelet Count 174 K/uL (130-400) Mean Platelet Volume 10.3 fL (7.4-10.4) Neutrophils (%) (Auto) 62.2 % Lymphocytes (%) (Auto) 29.2 % Monocytes (%) (Auto) 5.5 % Eosinophils (%) (Auto) 2.1 % Basophils (%) (Auto) 0.2 % Neutrophils # (Auto) 3.85 K/uL (1.4-6.5) Lymphocytes # (Auto) 1.81 K/uL (1.2-3.4) Monocytes # (Auto) 0.34 K/uL (0.11-0.59) Eosinophils # (Auto) 0.13 K/uL (0-0.5) Basophils # (Auto) 0.01 K/uL (0-0.2) RDW Standard Deviation 43.1 fL (36.4-46.3) RDW Coefficient of Variation 14.6 % (11.5-14.5) Immature Granulocyte % (Auto) 0.8 % Immature Granulocyte # (Auto) 0.05 K/uL (0.00-0.02) Anion Gap 5.0 mmol/L (3-11) Est Creatinine Clear Calc Drug Dose 134.8 ml/min Estimated GFR () 128.0 Estimated GFR (Non- 110.4 BUN/Creatinine Ratio 10.0 (10-20) Calcium Level 9.4 mg/dl (8.5-10.1) Total Bilirubin 0.3 mg/dl (0.2-1) Aspartate Amino Transf (AST/SGOT) 19 U/L (15-37) Alanine Aminotransferase (ALT/SGPT) 41 U/L (12-78) Alkaline Phosphatase 95 U/L (45-117) Total Protein 7.6 gm/dl (6.4-8.2) Albumin 4.0 gm/dl (3.4-5.0) Globulin 3.6 gm/dl (2.5-4.0) Albumin/Globulin Ratio 1.1 (0.9-2) Lipase 97 U/L (73-393) Urine Color YELLOW Urine Appearance CLEAR (CLEAR) Urine pH 7.0 (4.5-7.5) Urine Specific [place] 1.014 (1.000-1.030) Urine Protein NEG (NEG) Urine Glucose (UA) NEG (NEG) Urine Ketones NEG (NEG) Urine Occult Blood NEG (NEG) Urine Nitrite NEG (NEG) Urine Bilirubin NEG (NEG) Urine Urobilinogen NEG (NEG) Urine Leukocyte Esterase NEG (NEG) Medications Administered Medications (Trade) Dose Ordered Sig/Meron Route Start Time Stop Time Status Last Admin Dose Admin Sodium Chloride 1,000 ml @ 999 mls/hr Q1H1M STAT IV 07/03/17 14:21 07/03/17 15:21 DC 07/03/17 14:28 999 MLS/HR Morphine Sulfate (MoRPHine SULFATE INJ) 4 mg NOW STAT IV 07/03/17 14:21 07/03/17 14:23 DC 07/03/17 14:30 4 MG Ondansetron HCl (Zofran Inj) 4 mg NOW STAT IV 07/03/17 14:21 07/03/17 14:23 DC 07/03/17 14:29 4 MG ED Course The patient was again and examined. Previous visits were reviewed. The patient does not have a fever or leukocytosis. She does not have any significant electrolyte abnormality. Lipase is not elevated. Urinalysis is negative. The patient was hydrated with normal saline solution She was given 4 mg IV morphine and [address] scan of the abdomen and pelvis was obtained as above The exact etiology of the patient's pain is not clear at this time. There does not appear to be any acute abnormality on CT imaging and she does not have acute abdomen on examination. She should follow with her family doctor for further evaluation and management. She should return with worsening symptoms. The case was discussed with Dr. Michelle who agrees with the assessment and treatment plan. Medical Decision DIFFERENTIAL DIAGNOSIS: Hepatitis, cholecystitis, cholangitis, biliary colic, pancreatitis, pneumonia, subdiaphragmatic abscess, appendicitis, inguinal hernia , nephrolithiasis, inflammatory bowel disease, mesenteric adenitis, peptic ulcer disease, GERD, gastritis, pancreatitis, myocardial infarction, pericarditis, ruptured aortic aneurysm, appendicitis, gastroenteritis, bowel obstruction, splenic infarct, diverticulitis, mesenteric ischemia, metabolic, peritonitis, among others. Impression Primary Impression: Right flank pain Departure Information Dispostion Home / Self-Care Condition GOOD Referrals Kristen Cerspo PA-C (PCP) Patient Instructions ED Flank Pain Uncertain Cause, My [facility] Additional Instructions Motrin 600 mg every 6-8 hours for moderate pain Contact your family doctor to schedule a follow-up appointment for further evaluation and management Return with worsening symptoms
[2017-07-03 14:59] LABS: MANUAL MICROSCOPIC REQUIRED? NO; REVIEW REQ? NO
--- NOTE | 2017-07-03 14:59 | DIAGNOSTIC IMAGING REPORT ---
ABD/PELVIS WITHOUT FOR STONE HISTORY: 37 years-old Female right flank pain, h/o stones COMPARISON: CTA 08/24/2016 TECHNIQUE: Multiple axial CT images of the abdomen and pelvis were obtained without IV contrast. A dose lowering technique was used consistent with the principals of NASIR. FINDINGS: The imaged lung bases are generally clear. There is no pneumoperitoneum identified. The imaged inferior cardiac chambers are unremarkable. Prior cholecystectomy. Hepatomegaly with hepatosteatosis is redemonstrated. Spleen, pancreas and adrenal glands are unremarkable. 2 nonobstructing renal calculi are present in the left kidney measuring up to 3 mm. 2 mm nonobstructing calculus involves the superior pole right kidney. No ureteral calculi or obstructive uropathy identified. Urinary bladder, uterus and adnexa are within normal limits. The abdominal aorta is normal in both course and caliber. There is no bulky retroperitoneal adenopathy. There is no bowel obstruction. There are a few scattered noninflamed colonic diverticula. Surgical clips are seen along the cecum suggesting prior appendectomy. Patient obesity is noted. Degenerative changes involve the bilateral sacroiliac joints. The bones appear intact. IMPRESSION: 1. Bilateral nonobstructing renal calculi. No obstructive uropathy or ureteral calculi identified. 2. Hepatomegaly with hepatosteatosis. 3. Prior cholecystectomy and appendectomy. The above report was generated using voice recognition software. It may contain grammatical, syntax or spelling errors. Electronically signed by: Devin Biggs M.D. 07/03/2017 2:58 PM Dictated Date/Time: 07/03/2017 2:53 PM
[2017-07-03 15:31] VITALS: BP 132/85; PULSE 71; TEMP 36.7; O2SAT 100
[2017-07-03] MEDS ORDERED: EPP3/2 IM (17:30)
[2017-07-03] MEDS ORDERED: RIZA5TAB10 PO (18:00)
[2017-07-03] MEDS ORDERED: QUET1TAB9 PO (19:30)
== END 2017-07-03 15:32 | disposition home or self-care (01) ==
LOC: C.EDB 13:21
DX: R10.31 Right lower quadrant pain (principal); Z87.442 Personal history of urinary calculi; Z90.49 Acquired absence of other specified parts of digestive tract; Z90.710 Acquired absence of both cervix and uterus; D69.3 Immune thrombocytopenic purpura; Z83.3 Family history of diabetes mellitus; Z80.9 Family history of malignant neoplasm, unspecified; Z82.49 Family history of ischemic heart disease and other diseases of the circulatory system; Z84.1 Family history of disorders of kidney and ureter; Z82.0 Family history of epilepsy and other diseases of the nervous system; Z79.899 Other long term (current) drug therapy

== ENCOUNTER → 2017-07-06 | Outpatient (CLI) | payer BC ==
[~2017-07-06] MED LIST changes: +EPP3/2 IM; +GLC/500 PO; -IBUP-1451 PO; +PRAV20TA PO; +QUET1TAB9 PO; +RIZA5TAB10 PO
--- NOTE | 2017-07-06 14:58 | DIAGNOSTIC IMAGING REPORT ---
LUMBAR SPINE 5 VIEWS CLINICAL HISTORY: Low back pain. FINDINGS: 5 views of the lumbar spine are correlated with abdominal CT dated 07/03/2017.. The skeletal structures are well mineralized. There is no radiographic evidence of fracture or malalignment. Vertebral body height and alignment are maintained. The transverse and spinous processes are intact. There is no evidence of spondylolysis. The intervertebral disc spaces are well-maintained. Tiny anterior osteophytes are noted throughout. The visualized bony pelvis appears intact. There is a nonobstructed abdominal bowel gas pattern. Cholecystectomy clips are noted. A surgical clip is also seen in the right lower quadrant. IMPRESSION: No acute bony abnormality is seen involving the lumbosacral spine. Electronically signed by: Marino Hill M.D. 07/06/2017 2:56 PM Dictated Date/Time: 07/06/2017 2:56 PM
--- NOTE | 2017-07-06 14:59 | DIAGNOSTIC IMAGING REPORT ---
THORACIC SPINE 3 VIEWS HISTORY: BACK PAIN, LUMBAR THORACIC REGION COMPARISON: Chest 11/16/2016. FINDINGS: There is no fracture. No subluxation. Disc spaces are preserved. Paraspinal soft tissues are unremarkable. IMPRESSION: No fracture or subluxation within the thoracic spine. Electronically signed by: Jluis Crooks M.D. 07/06/2017 2:57 PM Dictated Date/Time: 07/06/2017 2:56 PM
== END | disposition home or self-care (01) ==
LOC: C.RAD 14:24
PROVIDERS: ATTEND Physician Assistant
DX: M54.5 Low back pain (principal); M54.6 Pain in thoracic spine

== ENCOUNTER 2017-08-30 13:34 | Emergency (ER) | payer BC ==
[~2017-08-30] VITALS: Ht 157.5 cm; Wt 118.9 kg
[2017-08-30 13:40] VITALS: Ht 157.5 cm; Wt 118.9 kg
[2017-08-30] MEDS ORDERED: MoRPHine SULFATE 4 MG/ML 1 ML CARP\\VIAL IV STA (13:58)
[2017-08-30] MEDS ORDERED: ONDANSETRON INJ 2 MG/ML 2 ML VIAL IV STA (13:58)
[2017-08-30] MEDS ORDERED: SODIUM CHLORIDE 0.9% 1000ML 1,000 ML IV ONE (14:00)
--- NOTE | 2017-08-30 14:08 | EMERGENCY ROOM VISIT NOTE ---
History First contact with patient: 13:43 Chief Complaint: FLANK PAIN Stated Complaint: V, LEFT SIDE PAIN, BLOODY URINE/STOOL History of Present Illness The patient is a 37 year old female who presents to the Emergency Room with complaints of vomiting. Patient states that this morning she had nausea and vomiting. She was on the toilet having both a urine and bowel movement and noted that there was blood in the toilet bowl, with a pinkish tinge to the water. She notes when she wiped there was a very small amount on the toilet paper. She is unsure if it was from the urine or in her bowels. She denies any clots in the toilet bowl. She is describing a dabbing 9 out of 10 lower abdominal pain with radiation to the left flank and left back. She denies dysuria but has been having urinary frequency. She's been nauseous and vomiting since this morning. Currently no nausea. She has no abdominal distension She denies fevers chills or sweats. She denies any recent antibiotic use or travel. She has seen her PCP for this over the past several weeks. She states her PCP did a Hemoccult which was negative. Review of Systems A 10 point review of systems was negative unless stated above. Past Medical/Surgical History Medical Problems: (1) Appendectomy (2) Cholecystectomy (3) Endometriosis (4) ITP (idiopathic thrombocytopenic purpura) (5) Kidney stone (6) Migraine (7) Migraines (8) Pyelonephritis (9) Shingles (10) UTI (urinary tract infection) Surgical Problems: (1) H/O: hysterectomy (2) History of appendectomy (3) History of cholecystectomy (4) S/P total hysterectomy and bilateral salpingo-oophorectomy Family History Diabetes mellitus FH: cancer FH: gallbladder disease FH: lung disease Hypertension Kidney disease Kidney stones Seizures Social History Smoking Status: Never Smoker Smokeless Tobacco Use: No Alcohol Use: occasionally Drug Use: none Marital Status: Housing Status: lives with family Occupation Status: employed Current/Historical Medications Scheduled Lamotrigine (Lamictal), 25 MG PO HS Metformin Hcl (Glucophage), 500 MG PO BID Pravastatin (Pravachol ), 20 MG PO HS Quetiapine Fumarate (Seroquel), 200 MG PO HS Ranitidine HCl (Ranitidine 75), 75 MG PO QAM Sertraline (Zoloft), 100 MG PO HS Trazodone Hcl (Trazodone), 50 MG PO HS Scheduled PRN Epinephrine (Epipen), 0.3 MG IM UD PRN for ALLERGIC REACTION Rizatriptan Benzoate (Maxalt), 5 MG PO UD PRN for Headache Allergies as above Physical Exam Vital Signs Date Time Temp Pulse Resp B/P (MAP) Pulse Ox O2 Delivery O2 Flow Rate FiO2 08/30/17 15:49 37.1 81 17 141/77 99 08/30/17 15:38 81 17 141/77 99 Room Air 08/30/17 13:40 37.1 87 17 142/83 99 Room Air Pain Rating (0-10): 9 Physical Exam Constitutional: Vital signs as above were reviewed. Eyes: Pupils equal, round, and reactive to light. Extraocular muscles are intact. No proptosis. No photophobia. ENT: Mucous membranes are moist. Oropharynx is clear. No sinus tenderness. Cardiovascular: Heart with a regular rate and rhythm. No pedal edema appreciated. Respiratory: Lungs clear to auscultation bilaterally. No wheezes, rales, or rhonchi appreciated. No accessory muscle use. No retractions. No increased work of breathing. GI: Abdomen soft, nontender, nondistended. Normal active bowel sounds. No abdominal hernias appreciated. No rebound. No guarding. 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 No gross deformities. No bony tenderness. No calf swelling or tenderness. Integumentary: Warm, dry, no rashes appreciated. Neurological: Patient awake, alert, and oriented x 3. Lymph: No cervical lymphadenopathy appreciated. Medical Decision & Procedures Laboratory Results 08/30/17 14:05 Red Blood Count 4.83, Mean Corpuscular Volume 81.0, Mean Corpuscular Hemoglobin 25.7, Mean Corpuscular Hemoglobin Concent 31.7, Mean Platelet Volume 10.4, Neutrophils (%) (Auto) 64.5, Lymphocytes (%) (Auto) 26.8, Monocytes (%) (Auto) 5.7, Eosinophils (%) (Auto) 1.7, Basophils (%) (Auto) 0.2, Neutrophils # (Auto) 4.30, Lymphocytes # (Auto) 1.78, Monocytes # (Auto) 0.38, Eosinophils # (Auto) 0.11, Basophils # (Auto) 0.01 08/30/17 14:05 Test 08/30/17 14:05 08/30/17 14:10 White Blood Count 6.65 K/uL (4.8-10.8) Red Blood Count 4.83 M/uL (4.2-5.4) Hemoglobin 12.4 g/dL (12.0-16.0) Hematocrit 39.1 % (37-47) Mean Corpuscular Volume 81.0 fL (80-100) Mean Corpuscular Hemoglobin 25.7 pg (25-34) Mean Corpuscular Hemoglobin Concent 31.7 g/dl (32-36) Platelet Count 172 K/uL (130-400) Mean Platelet Volume 10.4 fL (7.4-10.4) Neutrophils (%) (Auto) 64.5 % Lymphocytes (%) (Auto) 26.8 % Monocytes (%) (Auto) 5.7 % Eosinophils (%) (Auto) 1.7 % Basophils (%) (Auto) 0.2 % Neutrophils # (Auto) 4.30 K/uL (1.4-6.5) Lymphocytes # (Auto) 1.78 K/uL (1.2-3.4) Monocytes # (Auto) 0.38 K/uL (0.11-0.59) Eosinophils # (Auto) 0.11 K/uL (0-0.5) Basophils # (Auto) 0.01 K/uL (0-0.2) RDW Standard Deviation 42.4 fL (36.4-46.3) RDW Coefficient of Variation 14.3 % (11.5-14.5) Immature Granulocyte % (Auto) 1.1 % Immature Granulocyte # (Auto) 0.07 K/uL (0.00-0.02) Anion Gap 5.0 mmol/L (3-11) Est Creatinine Clear Calc Drug Dose 135.5 ml/min Estimated GFR () 128.0 Estimated GFR (Non- 110.4 BUN/Creatinine Ratio 14.5 (10-20) Calcium Level 9.3 mg/dl (8.5-10.1) Total Bilirubin 0.3 mg/dl (0.2-1) Direct Bilirubin < 0.1 mg/dl (0-0.2) Aspartate Amino Transf (AST/SGOT) 13 U/L (15-37) Alanine Aminotransferase (ALT/SGPT) 35 U/L (12-78) Alkaline Phosphatase 84 U/L (45-117) Total Protein 7.5 gm/dl (6.4-8.2) Albumin 3.7 gm/dl (3.4-5.0) Lipase 99 U/L (73-393) Urine Color YELLOW Urine Appearance CLEAR (CLEAR) Urine pH 6.0 (4.5-7.5) Urine Specific [place] 1.022 (1.000-1.030) Urine Protein NEG (NEG) Urine Glucose (UA) NEG (NEG) Urine Ketones NEG (NEG) Urine Occult Blood NEG (NEG) Urine Nitrite NEG (NEG) Urine Bilirubin NEG (NEG) Urine Urobilinogen NEG (NEG) Urine Leukocyte Esterase NEG (NEG) Urine WBC (Auto) 1-5 /hpf (0-5) Urine RBC (Auto) 0-4 /hpf (0-4) Urine Hyaline Casts (Auto) 1-5 /lpf (0-5) Urine Epithelial Cells (Auto) 20-30 /lpf (0-5) Urine Bacteria (Auto) NEG (NEG) Urine Test NEG (NEG) Medications Administered Medications (Trade) Dose Ordered Sig/Meron Route Start Time Stop Time Status Last Admin Dose Admin Morphine Sulfate (MoRPHine SULFATE INJ) 4 mg NOW STAT IV 08/30/17 13:58 08/30/17 14:00 DC 08/30/17 14:14 4 MG Ondansetron HCl (Zofran Inj) 4 mg NOW STAT IV 08/30/17 13:58 08/30/17 14:00 DC 08/30/17 14:14 4 MG Sodium Chloride 1,000 ml @ 999 mls/hr Q1H1M ONCE IV 08/30/17 14:00 08/30/17 15:00 DC 08/30/17 14:13 999 MLS/HR ED Course 13:40 - The patient was seen and evaluated by Dr. Gabriel Loving MD [facility] 14:00 - Labs: CBC, CMP, Lipase, UA Morphine 4 mg; Zofran 4 mg; 1 L NSS 14:30 - Negative hemoccult at bedside 15:20 - Reviewed labs, WNL No evidence of hematuria, No evidence of acute anemia 15:30 - Speculum exam performed and completely normal Discharged home with instructions to follow-up with PCP and supportive care instructions. 15:45 - Patient discharged home in stable condition Medical Decision 37-year-old female who presents with lower abdominal pain and blood in the toilet bowl, source unclear as to whether it's urine or gastrointestinal in origin. Differential diagnosis includes urinary tract infection, cystitis, urinary tract stone, pyelonephritis, gastrointestinal bleeding from hemorrhoids, angioma , diverticula. I did review a CT scan from June 2017, which did show bilateral nonobstructing calculi, but no evidence of diverticular disease. We evaluated her by Hemoccult and this was normal. There were no external sources for GI bleeding including anal tears or hemorrhoids. Her urinalysis was completely negative with the exception of 20-30 epithelial cells. Also perform speculum exam to evaluate her cervix and vaginal patiño. I did not note any abnormalities or any lesions. Because of acute abdomen and was not concerned for appendicitis or cholecystitis because she has had both of these organs removed in the past. I reviewed labs, which were grossly normal and did not show any evidence of anemia , renal dysfunction, or hepatic dysfunction. Despite reporting a 9/10 pain she was speaking completely calmly and the reported severity seemed out of proportion with how she looked clinically. She did receive 4 mg of morphine as well as Zofran, and states feeling slightly better. She had a completely unremarkable emergency room course and given the negative workup above, we felt it was safe to discharge her home back to the care of her primary care provider. She was given instructions on supportive care and instructed to see her primary care provider within one week of discharge. She was discharged home in stable condition and given signs and symptoms that should prompt return to the emergency room. Head Trauma GCS Score: 15 Blood Pressure Screening Patient's blood pressure: Elevated blood pressure Blood pressure disposition: Elevated BP felt to be situational Impression Primary Impression: Blood in toilet bowl Additional Impression: Nausea Ruled Out: Hematuria, GI bleed, Vaginal bleeding Departure Information Dispostion Home / Self-Care Condition GOOD Referrals Kristen Crespo PA-C (PCP) Patient Instructions My [facility] Additional Instructions You, came to the emergency room because he thought he may have had bleeding from either gastro-intestinal tract or from urinary tract. We checked your hemoglobin level and it was normal. We did a rectal exam and checked for blood and this was negative. We also tested her urine, and this was negative. In addition we did speculum exam to look for any source of vaginal bleeding. Your cervix looked normal and there were no abnormalities. At this time on lab work looks normal, we feel he can be discharged safely home. Please follow up with her primary care provider if this recurs. Please ensure you maintain good hydration when you go home. Please take Tylenol for any pain or discomfort. If your symptoms fail to improve, acutely worsen, please seek medical attention immediately by either calling your primary care provider or going to your nearest emergency department. Otherwise, please see your primary care provider within 1 week to ensure that your symptoms continue to improve. It was a pleasure to be involved in your care and we wish you all the best. Problem Qualifiers
[2017-08-30 14:30] LABS: BASO % 0.2 %; BASO ABS # 0.01 K/uL (0-0.2); COMPLETE YES; EOS % 1.7 %; HEMATOCRIT 39.1 % (37-47); IG% 1.1 %; LYMPH % 26.8 %; LYMPH ABS # 1.78 K/uL (1.2-3.4); MEAN CORPUSCULAR HEMOGLOBIN 25.7 pg (25-34); MEAN CORPUSCULAR HGB CONC 31.7 g/dl (32-36); MEAN PLATELET VOLUME 10.4 fL (7.4-10.4); MONO % 5.7 %; NEUT % 64.5 %; PLATELET COUNT 172 K/uL (130-400); RED BLOOD COUNT 4.83 M/uL (4.2-5.4); WHITE BLOOD COUNT 6.65 K/uL (4.8-10.8)
[2017-08-30 14:41] LABS: ALT/SGPT 35 U/L (12-78); BLOOD UREA NITROGEN 10 mg/dl (7-18); BUN/CREATININE RATIO 14.5 (10-20); CALCIUM 9.3 mg/dl (8.5-10.1); CARBON DIOXIDE 28 mmol/L (21-32); CHLORIDE 104 mmol/L (98-107); CREATININE 0.69 mg/dl (0.60-1.20); GLUCOSE 91 mg/dl (70-99); SODIUM 138 mmol/L (136-145)
[2017-08-30 14:45] LABS: ALKALINE PHOSPHATASE 84 U/L (45-117); AST/SGOT 13 U/L (15-37)
[2017-08-30 14:48] LABS: URINE APPEARANCE CLEAR (CLEAR); URINE BILIRUBIN NEG (NEG); URINE COLOR YELLOW; URINE EPITHELIAL CELL AUTO 20-30 /lpf (0-5); URINE NITRITE NEG (NEG); URINE SPECIFIC GRAVITY 1.022 (1.000-1.030); UROBILINOGEN NEG (NEG); ZZUR CULT IF INDIC CLEAN CATCH NO
[2017-08-30 14:50] LABS: MANUAL MICROSCOPIC REQUIRED? NO; REVIEW REQ? NO
--- NOTE | 2017-08-30 15:20 | DIAGNOSTIC IMAGING REPORT ---
PA CHEST WITH ABDOMINAL SERIES CLINICAL HISTORY: Generalized abdominal pain. FINDINGS: A PA chest radiograph is compared to study dated 11/16/2016. The cardiomediastinal silhouette is unremarkable. The lungs and pleural spaces are clear. No pneumothorax is seen. The bony thorax is grossly intact. Supine and erect abdominal radiographs are correlated with abdominal CT dated 07/03/2017. Cholecystectomy clips are noted in the right upper quadrant. A surgical clip is also seen in the right lower quadrant. There is a nonobstructed abdominal bowel gas pattern. No evidence of intraperitoneal free air is seen. There are no abnormal abdominal calcifications. The lumbosacral spine and bony pelvis appear intact. IMPRESSION: 1. No active disease in the chest. 2. Nonobstructed abdominal bowel gas pattern. Electronically signed by: Marino Hill M.D. 08/30/2017 3:19 PM Dictated Date/Time: 08/30/2017 3:18 PM
[2017-08-30 15:49] VITALS: BP 141/77; PULSE 81; TEMP 37.1; O2SAT 99
--- NOTE | 2017-08-30 17:53 | EMERGENCY ROOM VISIT NOTE ---
History Report prepared by Yobani: Barry Felder Under the Supervision of: Dr. Albert Michelle D.O. First contact with patient: 13:43 Chief Complaint: FLANK PAIN Stated Complaint: V, LEFT SIDE PAIN, BLOODY URINE/STOOL History of Present Illness The patient is a 37 year old female who presents to the Emergency Room with complaints of lower abdominal pain that began this morning. She rates her pain a 9/10 in severity. She has a history of a platelet disorder, kidney stones, complex migraines, appendectomy, cholecystectomy, and a complete hysterectomy. When she woke up this morning she had an episode of emesis. She then needed to relieve herself, so she began having a bowel movement and urinating. When she finished, she noticed the bowl was bloody. She is unsure whether the blood came from her vagina, bladder, or bowel. She then began to experience lower abdominal pain. She denies any pain with urination. She is not on blood thinners. She denies any vaginal bleeding that she is aware of. Source of History: patient Onset: this morning Position: abdomen Symptom Intensity: 9/10 Quality: ache Timing: constant Associated Symptoms: + vomiting Note: She denies any pain with urination. The patient is unsure whether she bled from her vagina, bladder, or bowel. Review of Systems See HPI for pertinent positives & negatives. A total of 10 systems reviewed and were otherwise negative. Past Medical & Surgical Medical Problems: (1) Appendectomy (2) Cholecystectomy (3) Endometriosis (4) ITP (idiopathic thrombocytopenic purpura) (5) Kidney stone (6) Migraine (7) Migraines (8) Pyelonephritis (9) Shingles (10) UTI (urinary tract infection) Surgical Problems: (1) H/O: hysterectomy (2) History of appendectomy (3) History of cholecystectomy (4) S/P total hysterectomy and bilateral salpingo-oophorectomy Family History Diabetes mellitus FH: cancer FH: gallbladder disease FH: lung disease Hypertension Kidney disease Kidney stones Seizures Social History Smoking Status: Never Smoker Smokeless Tobacco Use: No Alcohol Use: occasionally Drug Use: none Marital Status: Housing Status: lives with family Occupation Status: employed Current/Historical Medications Scheduled Lamotrigine (Lamictal), 25 MG PO HS Metformin Hcl (Glucophage), 500 MG PO BID Pravastatin (Pravachol ), 20 MG PO HS Quetiapine Fumarate (Seroquel), 200 MG PO HS Ranitidine HCl (Ranitidine 75), 75 MG PO QAM Sertraline (Zoloft), 100 MG PO HS Trazodone Hcl (Trazodone), 50 MG PO HS Scheduled PRN Epinephrine (Epipen), 0.3 MG IM UD PRN for ALLERGIC REACTION Rizatriptan Benzoate (Maxalt), 5 MG PO UD PRN for Headache Allergies Coded Allergies: BEE STING (Verified Allergy, Severe, ANAPHYLAXIS, 07/03/17) USES EPIPEN Macrolides and Ketolides (Verified Allergy, Severe, anaphylaxis- see comment, 07/03/17) azithromycin caused throat swelling; erythromycin caused hives Azithromycin (Verified Allergy, Intermediate, ANAPHYLAXIS, 07/03/17) Erythromycin (Verified Allergy, Intermediate, ANAPHYLAXIS, 07/03/17) Physical Exam Vital Signs Date Time Temp Pulse Resp B/P (MAP) Pulse Ox O2 Delivery O2 Flow Rate FiO2 08/30/17 15:49 37.1 81 17 141/77 99 08/30/17 15:38 81 17 141/77 99 Room Air 08/30/17 13:40 37.1 87 17 142/83 99 Room Air Physical Exam GENERAL: Sitting up in bed, alert, well appearing, well nourished, no distress, non-toxic EYE EXAM: normal conjunctiva OROPHARYNX: no exudate, no erythema, lips, buccal mucosa, and tongue normal and mucous membranes are moist NECK: supple, no nuchal rigidity, no adenopathy, non-tender LUNGS: Clear to auscultation. Normal chest wall mechanics HEART: no murmurs, S1 normal and S2 normal ABDOMEN: abdomen soft, non-tender, normo-active bowel sounds, no masses, no rebound or guarding. RECTAL: Heme negative stool : No bleeding present. BACK: Back is symmetrical on inspection and there is no deformity, no midline tenderness, no CVA tenderness. SKIN: no rashes and no bruising UPPER EXTREMITIES: upper extremities are grossly normal. LOWER EXTREMITIES: No pitting edema. NEURO EXAM: Normal sensorium, cranial nerves II-XII grossly intact, normal speech, no gross weakness of arms, no gross weakness of legs. Medical Decision & Procedures ER Provider Diagnostic Interpretation: Radiology results as stated below per my review and the radiologist's interpretation: PA CHEST WITH ABDOMINAL SERIES CLINICAL HISTORY: Generalized abdominal pain. FINDINGS: A PA chest radiograph is compared to study dated 11/16/2016. The cardiomediastinal silhouette is unremarkable. The lungs and pleural spaces are clear. No pneumothorax is seen. The bony thorax is grossly intact. Supine and erect abdominal radiographs are correlated with abdominal CT dated 07/03/2017. Cholecystectomy clips are noted in the right upper quadrant. A surgical clip is also seen in the right lower quadrant. There is a nonobstructed abdominal bowel gas pattern. No evidence of intraperitoneal free air is seen. There are no abnormal abdominal calcifications. The lumbosacral spine and bony pelvis appear intact. IMPRESSION: 1. No active disease in the chest. 2. Nonobstructed abdominal bowel gas pattern. Electronically signed by: Marino Hill M.D. 08/30/2017 3:19 PM Dictated Date/Time: 08/30/2017 3:18 PM Laboratory Results 08/30/17 14:05 Red Blood Count 4.83, Mean Corpuscular Volume 81.0, Mean Corpuscular Hemoglobin 25.7, Mean Corpuscular Hemoglobin Concent 31.7, Mean Platelet Volume 10.4, Neutrophils (%) (Auto) 64.5, Lymphocytes (%) (Auto) 26.8, Monocytes (%) (Auto) 5.7, Eosinophils (%) (Auto) 1.7, Basophils (%) (Auto) 0.2, Neutrophils # (Auto) 4.30, Lymphocytes # (Auto) 1.78, Monocytes # (Auto) 0.38, Eosinophils # (Auto) 0.11, Basophils # (Auto) 0.01 08/30/17 14:05 Test 08/30/17 14:05 08/30/17 14:10 White Blood Count 6.65 K/uL (4.8-10.8) Red Blood Count 4.83 M/uL (4.2-5.4) Hemoglobin 12.4 g/dL (12.0-16.0) Hematocrit 39.1 % (37-47) Mean Corpuscular Volume 81.0 fL (80-100) Mean Corpuscular Hemoglobin 25.7 pg (25-34) Mean Corpuscular Hemoglobin Concent 31.7 g/dl (32-36) Platelet Count 172 K/uL (130-400) Mean Platelet Volume 10.4 fL (7.4-10.4) Neutrophils (%) (Auto) 64.5 % Lymphocytes (%) (Auto) 26.8 % Monocytes (%) (Auto) 5.7 % Eosinophils (%) (Auto) 1.7 % Basophils (%) (Auto) 0.2 % Neutrophils # (Auto) 4.30 K/uL (1.4-6.5) Lymphocytes # (Auto) 1.78 K/uL (1.2-3.4) Monocytes # (Auto) 0.38 K/uL (0.11-0.59) Eosinophils # (Auto) 0.11 K/uL (0-0.5) Basophils # (Auto) 0.01 K/uL (0-0.2) RDW Standard Deviation 42.4 fL (36.4-46.3) RDW Coefficient of Variation 14.3 % (11.5-14.5) Immature Granulocyte % (Auto) 1.1 % Immature Granulocyte # (Auto) 0.07 K/uL (0.00-0.02) Anion Gap 5.0 mmol/L (3-11) Est Creatinine Clear Calc Drug Dose 135.5 ml/min Estimated GFR () 128.0 Estimated GFR (Non- 110.4 BUN/Creatinine Ratio 14.5 (10-20) Calcium Level 9.3 mg/dl (8.5-10.1) Total Bilirubin 0.3 mg/dl (0.2-1) Direct Bilirubin < 0.1 mg/dl (0-0.2) Aspartate Amino Transf (AST/SGOT) 13 U/L (15-37) Alanine Aminotransferase (ALT/SGPT) 35 U/L (12-78) Alkaline Phosphatase 84 U/L (45-117) Total Protein 7.5 gm/dl (6.4-8.2) Albumin 3.7 gm/dl (3.4-5.0) Lipase 99 U/L (73-393) Urine Color YELLOW Urine Appearance CLEAR (CLEAR) Urine pH 6.0 (4.5-7.5) Urine Specific [place] 1.022 (1.000-1.030) Urine Protein NEG (NEG) Urine Glucose (UA) NEG (NEG) Urine Ketones NEG (NEG) Urine Occult Blood NEG (NEG) Urine Nitrite NEG (NEG) Urine Bilirubin NEG (NEG) Urine Urobilinogen NEG (NEG) Urine Leukocyte Esterase NEG (NEG) Urine WBC (Auto) 1-5 /hpf (0-5) Urine RBC (Auto) 0-4 /hpf (0-4) Urine Hyaline Casts (Auto) 1-5 /lpf (0-5) Urine Epithelial Cells (Auto) 20-30 /lpf (0-5) Urine Bacteria (Auto) NEG (NEG) Urine Test NEG (NEG) Laboratory results per my review. Medications Administered Medications (Trade) Dose Ordered Sig/Meron Route Start Time Stop Time Status Last Admin Dose Admin Morphine Sulfate (MoRPHine SULFATE INJ) 4 mg NOW STAT IV 08/30/17 13:58 08/30/17 14:00 DC 08/30/17 14:14 4 MG Ondansetron HCl (Zofran Inj) 4 mg NOW STAT IV 08/30/17 13:58 08/30/17 14:00 DC 08/30/17 14:14 4 MG Sodium Chloride 1,000 ml @ 999 mls/hr Q1H1M ONCE IV 08/30/17 14:00 08/30/17 15:00 DC 08/30/17 14:13 999 MLS/HR ED Course ED COURSE: Vital signs were reviewed and showed hypertension. The patients medical record was reviewed The above diagnostic studies were performed and reviewed. ED treatments and interventions as stated above. 1343: The patient was evaluated in room A12. A complete history and physical examination was performed. 1358: Ordered Zofran Inj 4 mg IV, Morphine Sulfate 4 mg IV 1400: Ordered Sodium Chloride 1000 ml @ 999 mls/hr IV 1556: Upon reevaluation, the patient is resting. I discussed my findings with the patient and she understands and agrees with the treatment plan. Based on the patients age, coexisting illnesses, exam and lab findings the decision to treat as an outpatient was made. The patient remained stable while under my care. The patient appeared well at the time of discharge. Medical Decision Differential diagnoses includes but is not limited to gastritis, peptic ulcer disease, GERD, gallbladder disease, pancreatitis, small bowel obstruction, acute coronary syndrome, pericarditis, ischemic bowel, irritable bowel disease, irritable bowel syndrome, appendicitis, diverticulitis, malignancy, hernia, urinary tract infection, torsion, perforation, trauma, infectious. Patient is a 37-year-old female who presents to ER with nausea followed by vomiting. She notes on the toilet she had a bowel movement. Following that she look into it and noticed that there was blood. She is unsure whether this was from the bowel movement, vaginally or from urine. She does have a previous complete hysterectomy. Minimal discomfort in the lower abdomen has resolved. Previous cholecystectomy and appendectomy. CBC all BMP, LFTs, bilirubin lipase is unremarkable. Rectal was heme negative. Pelvic performed by resident showed no bleeding. UA was negative. was negative. Abdominal exam is completely benign. Up structures unremarkable. As vitals are stable and patient has no pain she was discharged follow-up with PCP. Favor this is likely hemorrhoidal but cannot be completely sure at this point. Instructed to return for any dark tarry stools, recurrence bleeding or any other concerning signs or symptoms from your standpoint. Discussed with Pt concerning signs and symptoms to watch out for. Pt was instructed to follow up with their PCP and discussed with the patient their option to return to the ED at anytime for persistent or worsening symptoms. The appropriate anticipatory guidance and out- patient management, including indications for return to the emergency department , were explained at length to the patient and understood. Medication Reconcilliation Current Medication List: was personally reviewed by me Blood Pressure Screening Patient's blood pressure: Elevated blood pressure Blood pressure disposition: Elevated BP felt to be situational Impression Primary Impression: Vomiting Additional Impressions: Blood in toilet bowl Nausea Scribe Attestation The scribe's documentation has been prepared under my direction and personally reviewed by me in its entirety. I confirm that the note above accurately reflects all work, treatment, procedures, and medical decision making performed by me. Departure Information Dispostion Home / Self-Care Referrals Kristen Crespo PA-C (PCP) Forms HOME CARE DOCUMENTATION FORM, IMPORTANT VISIT INFORMATION Patient Instructions My [facility] Additional Instructions You, came to the emergency room because he thought he may have had bleeding from either gastro-intestinal tract or from urinary tract. We checked your hemoglobin level and it was normal. We did a rectal exam and checked for blood and this was negative. We also tested her urine, and this was negative. In addition we did speculum exam to look for any source of vaginal bleeding. Your cervix looked normal and there were no abnormalities. At this time on lab work looks normal, we feel he can be discharged safely home. Please follow up with her primary care provider if this recurs. Please ensure you maintain good hydration when you go home. Please take Tylenol for any pain or discomfort. If your symptoms fail to improve, acutely worsen, please seek medical attention immediately by either calling your primary care provider or going to your nearest emergency department. Otherwise, please see your primary care provider within 1 week to ensure that your symptoms continue to improve. It was a pleasure to be involved in your care and we wish you all the best. Problem Qualifiers Primary Impression: Vomiting Vomiting type: unspecified Vomiting Intractability: non-intractable Nausea presence: with nausea Qualified Codes: R11.2 - Nausea with vomiting, unspecified
== END 2017-08-30 15:51 | disposition home or self-care (01) ==
LOC: C.EDB 13:35 → C.EDA 15:51
DX: R11.2 Nausea with vomiting, unspecified (principal); Z90.49 Acquired absence of other specified parts of digestive tract; D69.3 Immune thrombocytopenic purpura; Z87.440 Personal history of urinary (tract) infections; Z90.710 Acquired absence of both cervix and uterus; Z83.3 Family history of diabetes mellitus; Z80.9 Family history of malignant neoplasm, unspecified; Z82.49 Family history of ischemic heart disease and other diseases of the circulatory system; Z84.1 Family history of disorders of kidney and ureter; Z82.0 Family history of epilepsy and other diseases of the nervous system; Z79.899 Other long term (current) drug therapy

== ENCOUNTER → 2017-11-01 | Day surgery (SDC) | payer OTHER ==
[2017-10-23 10:56] VITALS: Ht 157.5 cm; Wt 119.5 kg
[~2017-11-01] VITALS: Ht 157.5 cm; Wt 119.5 kg
[~2017-11-01] MED LIST changes: +CHOL4POW4 PO; +ESOM20CA PO; -GLC/500 PO; +GLCSR/500 PO; +HYDR2.5C60 RE; -LAMO25TA PO; +LIDOCAINE HCL 2% 2 ML VIAL (20MG/ML) ONE; +LPT40 PO; +LSN25 PO; +MIDAZOLAM HCL 1 MG/ML 2ML VIAL ONE; +NAPR-22 PO; +NXM/40 PO; +ONDA4TAB46 PO; +ONDANSETRON INJ 2 MG/ML 2 ML VIAL ONE; +POLY335019 PO; -PRAV20TA PO; +PRAV40TA2 PO; +PROM25TA9 PO; +PROPOFOL IV EMULSION 10 MG/ML 20 ML VIAL IV ONE; -QUET1TAB9 PO; -RANI1TAB75 PO; -SERT-234 PO; +SODIUM CHLORIDE 0.9% 500ML 500 ML IV ONE; +TOPI25TA99 PO; +TPM25 PO; -TRAZ50TA35 PO
--- NOTE | 2017-11-01 12:43 | Endo History and Physical ---
History & Physical Date of Service: Nov 01, 2017. Chief Complaint: Rectal Bleeding Referring Physician: Areli History of Present Illness 37 yo CF who presents for colonoscopy secondary to Rectal bleeding. Past Medical History Diabetes, Anxiety, High Cholesterol, Hypertension, Depression Past Surgical History Hx Cardiac Surgery: No Hx Internal Defibrillator: No Hx Pacemaker: No Hx Abdominal Surgery: Yes (TUBAL LIGATION, STEFANI BSO, OMI, APPY) Hx of Implantable Prosthesis: No Hx Post-Op Nausea and Vomiting: Yes (POST OP NAUSEA) Hx Cancer Surgery: No Hx Thoracic Surgery: No Hx Orthopedic: No Hx Urinary Tract Surgery: Yes (LITHOTRIPSY) Family History None Social History Smoking Status: Never Smoker Hx Substance Use: No Hx Alcohol Use: Yes (RARELY) Allergies Coded Allergies: BEE STING (Verified Allergy, Severe, ANAPHYLAXIS, 10/23/17) USES EPIPEN Macrolides and Ketolides (Verified Allergy, Severe, anaphylaxis- see comment, 10/23/17) azithromycin caused throat swelling; erythromycin caused hives Azithromycin (Verified Allergy, Intermediate, ANAPHYLAXIS, 10/23/17) Erythromycin (Verified Allergy, Intermediate, ANAPHYLAXIS, 10/23/17) Current Medications Reported Home Medications Medications Dose Route/Sig Max Daily Dose Days Date Category Dose Instructions Pravastatin Sodium 40 Mg Tab 40 Mg PO HS 09/07/17 Reported Metformin HCl ER (Metformin HCl) 500 Mg Tabcr 500 Mg PO BID 09/07/17 Reported Maxalt (Rizatriptan Benzoate) 5 Mg Tab 5 Mg PO UD PRN 08/17/16 Reported TAKE 1 TABLET AT ONSET OF HEADACHE, MAY REPEAT DOSE IN 2 HOURS X2 IF NEEDED Epipen (Epinephrine) 0.3 Mg/0.3 Ml Inj 0.3 Mg IM UD PRN 02/01/16 Reported Vital Signs Weight (Kilograms): 119.55 Height (Feet): 5 Height (Inches): 2 Date Time Temp Pulse Resp B/P (MAP) Pulse Ox O2 Delivery O2 Flow Rate FiO2 11/01/17 12:17 37.3 79 18 114/76 (89) 97 Room Air Physical Exam General Appearance: WD/WN, no apparent distress Respiratory/Chest: Auscultation: breath sounds normal Cardiovascular: Heart Auscultation: RRR Abdomen: Bowel Sounds: normal Inspection & Palpation: soft, non-distended, no tenderness, guarding & rebound Assessment and Plan Assessment: 37 yo CF who presents for colonoscopy secondary to Rectal bleeding. Plan: Proceed with colonoscopy.
--- NOTE | 2017-11-01 13:42 | Discharge Instructions ---
Endoscopy Patient Instructions Date / Procedure(s) Performed Nov 01, 2017. Colonoscopy Allergy Information Coded Allergies: BEE STING (Verified Allergy, Severe, ANAPHYLAXIS, 10/23/17) USES EPIPEN Macrolides and Ketolides (Verified Allergy, Severe, anaphylaxis- see comment, 10/23/17) azithromycin caused throat swelling; erythromycin caused hives Azithromycin (Verified Allergy, Intermediate, ANAPHYLAXIS, 10/23/17) Erythromycin (Verified Allergy, Intermediate, ANAPHYLAXIS, 10/23/17) Discharge Date / Findings Nov 01, 2017. Internal hemorrhoids Medication Instructions OK to resume all medications today as prescribed Reported Home Medications Medications Dose Route/Sig Max Daily Dose Days Date Category Dose Instructions Pravastatin Sodium 40 Mg Tab 40 Mg PO HS 09/07/17 Reported Metformin HCl ER (Metformin HCl) 500 Mg Tabcr 500 Mg PO BID 09/07/17 Reported Maxalt (Rizatriptan Benzoate) 5 Mg Tab 5 Mg PO UD PRN 08/17/16 Reported TAKE 1 TABLET AT ONSET OF HEADACHE, MAY REPEAT DOSE IN 2 HOURS X2 IF NEEDED Epipen (Epinephrine) 0.3 Mg/0.3 Ml Inj 0.3 Mg IM UD PRN 02/01/16 Reported Provider Instructions Activity Restrictions - No exercising or heavy lifting for 24 hours. - Do not drink alcohol the day of the procedure. - Do not drive a car or operate machinery until the day after the procedure. - Do not make any important decisions or sign important papers in 24 hours after the procedure. Following Day: - Return to full activity which may include returning to work/school. Diet Start your diet with liquids and light foods (jello, soup, juice, toast). Then eat your usual diet if not nauseated. Treatment For Common After Affects For mild abdominal pain, bloating, or excessive gas: - Rest - Eat lightly - Lie on right side Follow-Up Information Follow-up with Curt as scheduled Anesthesia Information What You Should Know You have had a procedure that required some medicine to reduce anxiety and discomfort. This treatment is called moderate sedation. After receiving the treatment, you may be sleepy, but you will be able to breathe on your own. The effects of the treatment may last for several hours. Follow these instructions along with Activity/Diet recommendations noted above: * Do NOT do anything where dizziness or clumsiness would be dangerous. * Rest quietly at home today, then you can be up and about tomorrow. * Have a responsible person stay with you the rest of today. * You may have had an I.V. today. If so, you may take the dressing off later today. Recommendations Call your doctor if: * Trouble breathing * Continuous vomiting for more than 24 hours * Temperature above 101 degrees * Severe abdominal pain or bloating * Pain not relieved by pain medicine ordered * There is increased drainage or redness from any incision * A large amount of rectal bleeding greater than 2-3 tablespoons. (If you had a polyp/s removed or have hemorrhoids, a small amount of blood - from the rectum is to be expected.) * You have any unanswered questions or concerns. IN THE EVENT OF A SERIOUS EMERGENCY, GO TO THE NEAREST EMERGENCY ROOM Your discharge instructions were prepared by provider Doc Reagan. Patient Instructions Signature Page Orlin Delvalle Patient (or Guardian) Signature/Date: I have read and understand the instructions given to me by my caregivers. Caregiver/RN/Doctor Signature/Date: The above-named patient and/or guardian has received patient instructions on this date. + Original Patient Signature Page (only) stays with chart. Please make copy for patient.
--- NOTE | 2017-11-01 13:49 | GI REPORT ---
Procedure Date: 11/01/2017 12:38 PM Procedure: Colonoscopy Indications: Rectal bleeding Medicines: Monitored Anesthesia Care Complications: No immediate complications. Estimated Blood Loss: Estimated blood loss: none. Procedure: Pre-Anesthesia Assessment: - Prior to the procedure, a History and Physical was performed, and patient medications and allergies were reviewed. The patient's tolerance of previous anesthesia was also reviewed. The risks and benefits of the procedure and the sedation options and risks were discussed with the patient. All questions were answered, and informed consent was obtained. Prior Anticoagulants: The patient has taken no previous anticoagulant or antiplatelet agents. ASA Grade Assessment: III - A patient with severe systemic disease. After reviewing the risks and benefits, the patient was deemed in satisfactory condition to undergo the procedure. After I obtained informed consent, the scope was passed under direct vision. Throughout the procedure, the patient's blood pressure, pulse, and oxygen saturations were monitored continuously. The scope was introduced through the anus and advanced to the terminal ileum. The colonoscopy was performed without difficulty. The patient tolerated the procedure well. The quality of the bowel preparation was good. The terminal ileum, ileocecal valve, appendiceal orifice, and rectum were photographed. Findings: The perianal and digital rectal examinations were normal. Non-bleeding internal hemorrhoids were found during retroflexion. The hemorrhoids were small. The exam was otherwise without abnormality. Impression: - Non-bleeding internal hemorrhoids. - The examination was otherwise normal. - No specimens collected. Recommendation: - Resume previous diet. - Continue present medications. - Repeat colonoscopy in 10 years for surveillance. - Return to primary care physician as previously scheduled. Doc Reagan, DO 11/01/2017 1:48:18 PM This report has been signed electronically. Note Initiated On: 11/01/2017 12:38 PM I attest to the content of the Intraoperative Record and orders documented therein, exceptions below
--- NOTE | 2017-11-01 13:54 | Anesthesiology Progress Note ---
Anesthesia Post Op Note Date & Time Nov 01, 2017 at 13:54 Vital Signs Pain Intensity: 2 Vital Signs Past 12 Hours Date Time Temp Pulse Resp B/P (MAP) Pulse Ox O2 Delivery O2 Flow Rate FiO2 11/01/17 13:35 79 18 93/53 (66) 92 Room Air 11/01/17 12:17 37.3 79 18 114/76 (89) 97 Room Air Notes Mental Status: alert / awake / arousable, participated in evaluation Pt Amnestic to Procedure: Yes Nausea / Vomiting: adequately controlled Pain: adequately controlled Airway Patency, RR, SpO2: stable & adequate BP & HR: stable & adequate Hydration State: stable & adequate Anesthetic Complications: no major complications apparent
[2017-11-01 14:06] VITALS: BP 120/81; PULSE 68; O2SAT 98
== END | disposition home or self-care (01) ==
LOC: C.GI 11:53
PROVIDERS: ATTEND Internal Medicine
DX: K62.5 Hemorrhage of anus and rectum (principal); K64.8 Other hemorrhoids; E11.9 Type 2 diabetes mellitus without complications; F41.9 Anxiety disorder, unspecified; E78.00 Pure hypercholesterolemia, unspecified; I10 Essential (primary) hypertension; F32.9 Major depressive disorder, single episode, unspecified; E66.9 Obesity, unspecified; Z68.42 Body mass index [BMI] 45.0-49.9, adult; Z98.51 Tubal ligation status; Z90.49 Acquired absence of other specified parts of digestive tract; Z90.89 Acquired absence of other organs; Z88.1 Allergy status to other antibiotic agents

== ENCOUNTER 2017-12-06 18:31 | Emergency (ER) | payer OTHER ==
[~2017-12-06] VITALS: Ht 157.5 cm; Wt 115.2 kg
[~2017-12-06 18:31] MED LIST changes: -CHOL4POW4 PO; -ESOM20CA PO; -HYDR2.5C60 RE; -LIDOCAINE HCL 2% 2 ML VIAL (20MG/ML) ONE; -LPT40 PO; -LSN25 PO; -MIDAZOLAM HCL 1 MG/ML 2ML VIAL ONE; -NAPR-22 PO; -NXM/40 PO; -ONDA4TAB46 PO; -ONDANSETRON INJ 2 MG/ML 2 ML VIAL ONE; -POLY335019 PO; -PROM25TA9 PO; -PROPOFOL IV EMULSION 10 MG/ML 20 ML VIAL IV ONE; -SODIUM CHLORIDE 0.9% 500ML 500 ML IV ONE; -TOPI25TA99 PO; -TPM25 PO
[2017-12-06 19:03] VITALS: TEMP 36.8; Ht 157.5 cm; Wt 115.2 kg
[2017-12-06] MEDS ORDERED: PROCHLORPERAZINE 5 MG/ML 2 ML VIAL IV STA (20:19)
[2017-12-06] MEDS ORDERED: DiphenhydrAMINE HCL 50 MG/ML VIAL IV STA (20:19)
[2017-12-06] MEDS ORDERED: KETOROLAC TROMETHAMINE 30 MG/ML VIAL IV STA (20:19)
[2017-12-06] MEDS ORDERED: PROCHLORPERAZINE INJ 10 MG in SYRINGE 8 ML IV ONE (20:19)
[2017-12-06] MEDS ORDERED: NXM/40 PO (20:22)
[2017-12-06] MEDS ORDERED: LPT40 PO (20:22)
[2017-12-06] MEDS ORDERED: CHOL4POW4 PO (20:22)
[2017-12-06] MEDS ORDERED: HYDR2.5C60 RE (20:22)
[2017-12-06] MEDS ORDERED: LSN25 PO (20:22)
--- NOTE | 2017-12-06 20:38 | EMERGENCY ROOM VISIT NOTE ---
History First contact with patient: 19:47 Chief Complaint: HEADACHE Stated Complaint: MIGRAINE, NAUSEA, NECK AND RT ARM PAIN History of Present Illness The patient is a 37 year old female who presents to the Emergency Room with complaints of a migraine headache which began this morning. The patient reports that she has a headache which is located behind both of her eyes and radiates around her head to the back of her neck. She reports associated light sensitivity, nausea and lightheadedness, which are typical of her migraine headaches. She states this is similar to migraines she has had in the past and it is not the worst headache of her life. She rates her discomfort an 8/10. She denies any vomiting, chest pain, shortness of breath, numbness or weakness. She took rizatriptan without relief. She denies any recent illnesses or fevers/chills. Review of Systems A complete 10 point review of systems was reviewed with the patient with pertinent positives and negatives as per history of present illness. All else were negative. Past Medical/Surgical History Medical Problems: (1) Appendectomy (2) Cholecystectomy (3) Diabetes mellitus, type II (4) Endometriosis (5) ITP (idiopathic thrombocytopenic purpura) (6) Kidney stone (7) Migraine (8) Migraines (9) Pyelonephritis (10) Shingles (11) UTI (urinary tract infection) Surgical Problems: (1) H/O: hysterectomy (2) History of appendectomy (3) History of cholecystectomy (4) S/P total hysterectomy and bilateral salpingo-oophorectomy Family History Diabetes mellitus FH: cancer FH: gallbladder disease FH: lung disease Hypertension Kidney disease Kidney stones Seizures Social History Smoking Status: Never Smoker Alcohol Use: occasionally Drug Use: none Marital Status: Housing Status: lives with family Occupation Status: employed Current/Historical Medications Scheduled Atorvastatin (Lipitor), 40 MG PO DAILY Cholestyramine (Cholestyramine), 1 DOSE PO UD Esomeprazole Magnesium (Nexium), 40 MG PO DAILY Hydrocortisone (Rectal) (Procto-Med Hc), 1 APPLN RE BID Lisinopril (Lisinopril), 2.5 MG PO DAILY Metformin HCl (Metformin HCl ER), 500 MG PO BID Scheduled PRN Epinephrine (Epipen), 0.3 MG IM UD PRN for ALLERGIC REACTION Rizatriptan Benzoate (Maxalt), 5 MG PO UD PRN for Headache Physical Exam Vital Signs Date Time Temp Pulse Resp B/P (MAP) Pulse Ox O2 Delivery O2 Flow Rate FiO2 12/06/17 21:57 83 16 154/98 99 12/06/17 20:17 83 15 148/98 96 Room Air 12/06/17 19:03 36.8 97 20 139/96 97 Room Air Physical Exam VITALS: Vitals are noted on the nurse's note and reviewed by myself. Vital signs stable. GENERAL: This is a 37-year-old female, in no acute distress, nondiaphoretic, well-developed well-nourished. HEAD: Normocephalic atraumatic. EARS: External auditory canals clear, tympanic membranes pearly denney without erythema or effusion bilaterally. EYES: Pupils equal round and reactive to light and accommodation. Extraocular movements intact. MOUTH: Mucous membranes moist. Tonsils are not enlarged. Pharynx without erythema or exudate. NECK: Supple without nuchal rigidity. No lymphadenopathy. No meningismus. HEART: Regular rate and rhythm without murmurs gallops or rubs. LUNGS: Clear to auscultation bilaterally without wheezes, rales or rhonchi. MUSCULOSKELETAL: Strength 5/5 throughout. NEURO: Patient was alert and oriented to person place and time. Normal sensation. No focal neurological deficits. Medical Decision & Procedures Medications Administered Medications (Trade) Dose Ordered Sig/Meron Route Start Time Stop Time Status Last Admin Dose Admin Ketorolac Tromethamine (Toradol Inj) 30 mg NOW STAT IV 12/06/17 20:19 12/06/17 20:21 DC 12/06/17 20:41 30 MG Diphenhydramine HCl (Benadryl Inj) 25 mg NOW STAT IV 12/06/17 20:19 12/06/17 20:21 DC 12/06/17 20:42 25 MG Prochlorperazine Edisylate 10 mg/ Syringe 10 ml @ 5 mls/min TODAY@2018 ONCE IV 12/06/17 20:19 12/06/17 20:44 DC 12/06/17 20:53 5 MLS/MIN Dexamethasone Sodium Phosphate (Decadron Inj) 10 mg NOW STAT IV 12/06/17 21:35 12/06/17 21:37 DC 12/06/17 21:39 10 MG Medical Decision The differential diagnosis includes acute intracranial bleed, meningitis, encephalitis, mass or mass effect, sinusitis, infection, tumor, headache, temporal arteritis and carbon monoxide exposure, and migraine. The patient is a 37-year-old female who presents today complaining of headache. States this is similar to previous migraines headaches. No evidence of meningitis or subarachnoid hemorrhage. Patient's treated with IV Toradol, Benadryl and Compazine with significant improvement. She was given a dose of Decadron. She will follow-up with her PCP as needed. Based on the patient's presentation and work up, I feel the patient is stable for outpatient treatment. The patient was educated to return to the emergency department for any worsening of their current condition or new/concerning symptoms. She will follow up with her PCP. Medication Reconcilliation Current Medication List: was personally reviewed by me Blood Pressure Screening Patient's blood pressure: Elevated blood pressure Blood pressure disposition: Elevated BP felt to be situational, Referred to PCP Impression Primary Impression: Headache Departure Information Dispostion Home / Self-Care Condition GOOD Referrals Kristen Crespo PA-C (PCP) Patient Instructions My [facility] Additional Instructions You have been treated in the Emergency Department for a Headache. You have received pain medicine in the emergency department which impairs your ability to operate a vehicle. It is illegal for you to drive after receiving these medicines. For pain control, you can use the following [id number] medicines (if >12 yo): - Regular strength (325mg/tab) Tylenol (acetaminophen) 2 tabs every 4-6 hours as needed. Do not exceed 12 tablets in a 24 hour period. Avoid taking more than 4 grams (4000 mg) of Tylenol per day. This includes any other sources of acetaminophen you may take on a regular basis. - Regular strength (200 mg/tab) Advil (ibuprofen) 1-2 tabs every 4-6 hours as needed. Do not exceed a dose of 3200 mg per day. You should relax in a quiet, dark place for the rest of the day. Avoid any possible triggers including: cigarette smoke, caffeine, nicotine, chocolate, wine, beer, loud noises or music, or bright lights. You should schedule a follow-up appointment in 2-3 days with your Primary Care Provider or established Neurologist for further evaluation and treatment of your Headache. Return to the Emergency Department if your current symptoms worsen despite treatment course outlined above, or if you develop any of the following symptoms : intractable pain despite aforementioned treatment course, visual disturbances , loss of vision, unilateral weakness or facial drooping, slurring of speech, loss of coordination, or loss of consciousness. Problem Qualifiers Primary Impression: Headache Headache type: unspecified Headache chronicity pattern: unspecified pattern Intractability: not intractable Qualified Codes: R51 - Headache
[2017-12-06] MEDS ORDERED: DEXAMETHASONE SOD INJ 4 MG/ML VIAL IV STA (21:35)
[2017-12-06 21:57] VITALS: BP 154/98; PULSE 83; O2SAT 99
== END 2017-12-06 21:58 | disposition home or self-care (01) ==
LOC: C.EDB 18:33 → C.EDC 21:58
DX: G43.009 Migraine without aura, not intractable, without status migrainosus (principal); R03.0 Elevated blood-pressure reading, without diagnosis of hypertension; E11.9 Type 2 diabetes mellitus without complications; Z79.84 Long term (current) use of oral hypoglycemic drugs; Z83.3 Family history of diabetes mellitus; Z83.79 Family history of other diseases of the digestive system; Z82.49 Family history of ischemic heart disease and other diseases of the circulatory system; Z84.1 Family history of disorders of kidney and ureter; Z82.0 Family history of epilepsy and other diseases of the nervous system

== ENCOUNTER 2018-03-25 17:05 | Emergency (ER) | payer OTHER ==
[~2018-03-25] VITALS: Ht 157.5 cm; Wt 113.2 kg
[~2018-03-25 17:05] MED LIST changes: +CHOL4POW4 PO; +HYDR2.5C60 RE; +LPT40 PO; +LSN25 PO; +NXM/40 PO; -PRAV40TA2 PO
[2018-03-25 17:09] VITALS: TEMP 36.9; Ht 157.5 cm; Wt 113.2 kg
[2018-03-25] MEDS ORDERED: SODIUM CHLORIDE 0.9% 1000ML 1,000 ML IV STA (17:21)
[2018-03-25] MEDS ORDERED: KETOROLAC TROMETHAMINE 30 MG/ML VIAL IV STA (17:21)
[2018-03-25] MEDS ORDERED: PROCHLORPERAZINE 5 MG/ML 2 ML VIAL IV STA (17:21)
[2018-03-25] MEDS ORDERED: DiphenhydrAMINE HCL 50 MG/ML VIAL IV STA (17:21)
[2018-03-25 19:16] VITALS: BP 157/97; PULSE 96; O2SAT 98
--- NOTE | 2018-03-25 19:46 | EMERGENCY ROOM VISIT NOTE ---
History Report prepared by Yobani: Isaias Alarcon Under the Supervision of: Dr. Collins Martinez M.D. First contact with patient: 17:15 Chief Complaint: HEADACHE Stated Complaint: MIGRAINE W/ NAUSEA, NUMBNESS IN R ARM History of Present Illness The patient is a 37 year old female who presents to the Emergency Room with complaints of a constant migraine beginning three days ago. The patient states that she has a history of migraines and notes that her current migraine is on her right side. She notes that her migraine feels like a throbbing and ache, with an occasional sharp pain right behind her eyes. She reports that her migraine symptoms worsen with light. The patient states that she took rizatriptan at around 1300 today with no relief of her symptoms. She also complains of nausea, vomiting, right arm numbness, and mild right abdominal pain. She notes that her right arm numbness started this morning at 0700 and feels like "pins and needles." She reports that she had a similar migraine with numbness a few years ago. The patient states that during that episode, her numbness went away when her migraine did. She denies any fever and recent trauma. Source of History: patient Onset: three days ago Position: head (right-sided) Quality: ache, sharp, other (throbbing) Timing: constant Modifying Factors (Worsening): other (light) Associated Symptoms: + nausea, + vomiting, + abdominal pain (mild right abdomen), + numbness (right arm), No fevers Review of Systems See HPI for pertinent positives & negatives. A total of 10 systems reviewed and were otherwise negative. Past Medical & Surgical Medical Problems: (1) Appendectomy (2) Cholecystectomy (3) Diabetes mellitus, type II (4) Endometriosis (5) ITP (idiopathic thrombocytopenic purpura) (6) Kidney stone (7) Migraine (8) Migraines (9) Pyelonephritis (10) Shingles (11) TTP (thrombotic thrombopenic purpura) (12) UTI (urinary tract infection) Surgical Problems: (1) H/O: hysterectomy (2) History of appendectomy (3) History of cholecystectomy (4) S/P total hysterectomy and bilateral salpingo-oophorectomy Family History Diabetes mellitus FH: cancer FH: gallbladder disease FH: lung disease Heart disease Hypertension Kidney disease Kidney stones Seizures Social History Smoking Status: Never Smoker Alcohol Use: occasionally Drug Use: none Marital Status: Housing Status: lives with family Occupation Status: employed Current/Historical Medications Scheduled Atorvastatin (Lipitor), 40 MG PO DAILY Esomeprazole Magnesium (Nexium), 20 MG PO DAILY Lisinopril (Lisinopril), 2.5 MG PO DAILY Metformin HCl (Metformin HCl ER), 500 MG PO BID Scheduled PRN Epinephrine (Epipen), 0.3 MG IM UD PRN for ALLERGIC REACTION Rizatriptan Benzoate (Maxalt), 5 MG PO UD PRN for Headache Allergies Coded Allergies: BEE STING (Verified Allergy, Severe, ANAPHYLAXIS, 03/25/18) USES EPIPEN Macrolides and Ketolides (Verified Allergy, Severe, anaphylaxis- see comment, 03/25/18) azithromycin caused throat swelling; erythromycin caused hives Azithromycin (Verified Allergy, Intermediate, ANAPHYLAXIS, 03/25/18) Erythromycin (Verified Allergy, Intermediate, ANAPHYLAXIS, 03/25/18) Physical Exam Vital Signs Date Time Temp Pulse Resp B/P (MAP) Pulse Ox O2 Delivery O2 Flow Rate FiO2 03/25/18 19:16 96 20 157/97 98 03/25/18 17:09 36.9 89 18 139/102 100 Room Air Physical Exam Constitutional: Vital signs reviewed. Eyes: Pupils are equal round reactive to light. Conjunctiva are noninjected. ENT: Pharynx is clear without erythema or exudate. Mucous membranes are moist. Neck supple without meningeal signs. Respiratory: Clear to auscultation bilaterally. Breath sounds are equal bilaterally. Cardiovascular: Regular rate and rhythm. No rubs or gallops. GI: Soft, nondistended and nontender. Bowel sounds are present. Musculoskeletal: No peripheral edema. No lower extremity tenderness. Integumentary: No cyanosis. Neurological: The patient is awake and alert. Cranial nerves II-XII are intact. Motor is 5 out of 5 all extremities. Sensation is intact to light touch all extremities. Normal speech. No pronator drift. No limb ataxia. Psychiatric: Normal affect. Medical Decision & Procedures Medications Administered Medications (Trade) Dose Ordered Sig/Meron Route Start Time Stop Time Status Last Admin Dose Admin Prochlorperazine Edisylate (Compazine Inj) 10 mg NOW STAT IV 03/25/18 17:21 03/25/18 17:24 DC 03/25/18 17:42 10 MG Diphenhydramine HCl (Benadryl Inj) 50 mg NOW STAT IV 03/25/18 17:21 03/25/18 17:24 DC 03/25/18 17:40 50 MG Sodium Chloride 1,000 ml @ 999 mls/hr Q1H1M STAT IV 03/25/18 17:21 03/25/18 18:21 DC 03/25/18 17:39 999 MLS/HR Ketorolac Tromethamine (Toradol Inj) 10 mg NOW STAT IV 03/25/18 17:21 03/25/18 17:24 DC 03/25/18 17:39 10 MG ED Course 1719: The patient was evaluated in room B2. A complete history and physical exam was performed. 1721: Toradol Inj 10mg IV, Sodium Chloride 1000 ml @ 999 mls/hr IV, Benadryl Inj 50mg IV, Compazine Inj 10mg IV 1833: Upon reevaluation, the patient appeared to have improvement of her symptoms. I discussed tonight's findings with her. She verbalized agreement of the treatment plan. The patient was discharged home. Medical Decision This is a 37-year-old female presents with a headache and tingling to her right arm. Differential diagnosis includes migraine headache, tension headache, intracranial mass, intracranial hemorrhage, meningitis, paresthesias. I did perform a limited focused review of portions of the patient's old chart on the electronic medical record. The patient was last seen in the emergency department for a migraine on December 06, 2017. She was treated with compazine , Benadryl, Decadron, and Toradol, and was discharged home. I did evaluate the patient as noted above. The patient is presenting with a headache consistent with her prior migraine headaches. She is neurologically intact. She is afebrile. There is no history of traumatic head injury. I do not feel any laboratory testing or imaging was indicated. IV access was established. I did treat the patient with IV normal saline, Compazine, Benadryl and Toradol. I did reassess the patient. She is feeling better and would like to go home. She was advised to follow-up with his doctor and given return instructions as outlined below. Medication Reconcilliation Current Medication List: was personally reviewed by me Blood Pressure Screening Patient's blood pressure: Elevated blood pressure Blood pressure disposition: Referred to PCP Impression Primary Impression: Migraine Additional Impression: Arm paresthesia, right Scribe Attestation The scribe's documentation has been prepared under my direct and personally reviewed by me in its entirety. I confirm that the note above accurately reflects all work, treatment, procedures, and medical decision making performed by me. Departure Information Dispostion Home / Self-Care Referrals Kristen Crespo PA-C (PCP) Forms HOME CARE DOCUMENTATION FORM, IMPORTANT VISIT INFORMATION Patient Instructions My [facility] Additional Instructions You have been examined and treated today on an emergency basis only. This is not a substitute for, or an effort to provide, complete comprehensive medical care. It is impossible to recognize and treat all injuries or illnesses in a single emergency department visit. It is therefore important that you follow up closely with your physician. Call as soon as possible for an appointment. Return for worsening symptoms or if you develop fever, loss of sensation or weakness on one side of your body, difficulties with your speech or walking, or any other concerning symptoms. Problem Qualifiers Primary Impression: Migraine Migraine type: unspecified Status migrainosus presence: without status migrainosus Intractability: not intractable Qualified Codes: G43.909 - Migraine, unspecified, not intractable, without status migrainosus
== END 2018-03-25 19:17 | disposition home or self-care (01) ==
LOC: C.EDB 17:07
DX: G43.909 Migraine, unspecified, not intractable, without status migrainosus (principal); E11.9 Type 2 diabetes mellitus without complications; Z79.84 Long term (current) use of oral hypoglycemic drugs; Z79.899 Other long term (current) drug therapy; Z91.030 Bee allergy status; Z88.1 Allergy status to other antibiotic agents

== ENCOUNTER 2018-06-16 19:32 | Emergency (ER) | payer OTHER ==
[~2018-06-16] VITALS: Ht 157.5 cm; Wt 106.7 kg
[~2018-06-16 19:32] MED LIST changes: -CHOL4POW4 PO; -HYDR2.5C60 RE; -LPT40 PO
[2018-06-16 19:34] VITALS: TEMP 36.9; Ht 157.5 cm; Wt 106.7 kg
[2018-06-16] MEDS ORDERED: ONDANSETRON INJ 2 MG/ML 2 ML VIAL IV STA (19:42)
[2018-06-16] MEDS ORDERED: SODIUM CHLORIDE 0.9% 1000ML 1,000 ML IV STA (19:42)
[2018-06-16] MEDS: MoRPHine SULFATE 4 MG/ML 1 ML CARP\\VIAL IV PRN ×3 (20:14→22:13)
--- NOTE | 2018-06-16 20:15 | DIAGNOSTIC IMAGING REPORT ---
KUB CLINICAL HISTORY: right flank paain pain COMPARISON STUDY: No previous studies for comparison. FINDINGS: The soft tissues, psoas shadows, renal outlines and intestinal gas pattern appear normal. There is no evidence for bowel obstruction. No abnormal abdominal calcifications are seen. IMPRESSION: Normal study. The above report was generated using voice recognition software. It may contain grammatical, syntax or spelling errors. Electronically signed by: Osvaldo Wilde M.D. 06/16/2018 8:14 PM Dictated Date/Time: 06/16/2018 8:14 PM
[2018-06-16 20:18] LABS: BASO % 0.1 %; BASO ABS # 0.01 K/uL (0-0.2); EOS % 0.7 %; EOS ABS # 0.05 K/uL (0-0.5); HEMATOCRIT 42.9 % (37-47); HEMOGLOBIN 13.9 g/dL (12.0-16.0); IG# 0.03 K/uL (0.00-0.02); MEAN CELL VOLUME 80.3 fL (80-100); MEAN CORPUSCULAR HGB CONC 32.4 g/dl (32-36); MEAN PLATELET VOLUME 11.4 fL (7.4-10.4); MONO % 4.1 %; MONO ABS # 0.29 K/uL (0.11-0.59); NEUT % 67.7 %; NEUT ABS # 4.77 K/uL (1.4-6.5); PLATELET COUNT 202 K/uL (130-400); RED CELL DISTRIBUTION WIDTH SD 41.1 fL (36.4-46.3); WHITE BLOOD COUNT 7.05 K/uL (4.8-10.8)
[2018-06-16] MEDS ORDERED: ESOM20CA PO (20:21)
[2018-06-16] MEDS ORDERED: LPT40 PO (20:22)
--- NOTE | 2018-06-16 20:46 | EMERGENCY ROOM VISIT NOTE ---
History Report prepared by Yobani: Will Ibrahim Under the Supervision of: Blake MckeonO. First contact with patient: 19:37 Chief Complaint: FLANK PAIN Stated Complaint: RIGHT FLANK PAIN, LOWER ABDOMINAL PAIN History of Present Illness The patient is a 38 year old female who presents to the Emergency Room with complaints of worsening urinary retention. The patient states that her symptoms began yesterday and improved last night. She reports that this morning at 5 AM, she went to the bathroom and passed out on the floor. She states that she has since been vomiting all day, is experiencing abdominal pain, and feels like she cannot urinate. She rates her current symptoms at a 9/10 in severity. She notes that she had a fever yesterday. The patient denies dark or bloody urine. She reports she did not take anything for her symptoms. She reports a history of UTIs and kidney stones. She notes that she was able to pass her kidney stones until 2016, after which she is unable to do so. She notes she last saw her urologist, Dr. Thomas Verdugo, last year. Source of History: patient Onset: yesterday Position: other (bladder) Symptom Intensity: 9/10 Quality: other (urinary retention) Timing: worsening Associated Symptoms: + fevers, + vomiting, + abdominal pain Note: denies dark or bloody urine Review of Systems See HPI for pertinent positives & negatives. A total of 10 systems reviewed and were otherwise negative. Past Medical & Surgical Medical Problems: (1) Appendectomy (2) Cholecystectomy (3) Diabetes mellitus, type II (4) Endometriosis (5) ITP (idiopathic thrombocytopenic purpura) (6) Kidney stone (7) Migraine (8) Migraines (9) Pyelonephritis (10) Shingles (11) TTP (thrombotic thrombopenic purpura) (12) UTI (urinary tract infection) Surgical Problems: (1) H/O: hysterectomy (2) History of appendectomy (3) History of cholecystectomy (4) S/P total hysterectomy and bilateral salpingo-oophorectomy Family History Diabetes mellitus FH: cancer FH: gallbladder disease FH: lung disease Heart disease Hypertension Kidney disease Kidney stones Seizures Social History Smoking Status: Never Smoker Alcohol Use: occasionally Drug Use: none Marital Status: Housing Status: lives with family Occupation Status: employed Current/Historical Medications Scheduled Atorvastatin (Lipitor), 40 MG PO DAILY Esomeprazole Magnesium (Nexium), 20 MG PO DAILY Metformin HCl (Metformin HCl ER), 500 MG PO BID Topiramate (Topiramate), 75 MG PO DAILY Scheduled PRN Epinephrine (Epipen), 0.3 MG IM UD PRN for ALLERGIC REACTION Rizatriptan Benzoate (Maxalt), 5 MG PO UD PRN for Headache Allergies Coded Allergies: BEE STING (Verified Allergy, Severe, ANAPHYLAXIS, 03/25/18) USES EPIPEN Macrolides and Ketolides (Verified Allergy, Severe, anaphylaxis- see comment, 03/25/18) azithromycin caused throat swelling; erythromycin caused hives Azithromycin (Verified Allergy, Intermediate, ANAPHYLAXIS, 03/25/18) Erythromycin (Verified Allergy, Intermediate, ANAPHYLAXIS, 03/25/18) Physical Exam Vital Signs Date Time Temp Pulse Resp B/P (MAP) Pulse Ox O2 Delivery O2 Flow Rate FiO2 06/16/18 22:56 78 20 112/79 99 Room Air 06/16/18 21:26 88 20 123/87 99 Room Air 06/16/18 19:34 36.9 93 20 129/93 98 Room Air Physical Exam GENERAL: Patient is awake, alert, and in no acute distress. Patient is resting comfortably and showing no signs of anxiety EYES: The conjunctivae are clear. The pupils are round and reactive. EARS, NOSE, MOUTH AND THROAT: The nose is without any evidence of any deformity. Mucous membranes are moist. Tongue is midline NECK: The neck is nontender and supple. RESPIRATORY: Normal respiratory effort is noted. There is no evidence of wheezing rhonchi or rales to auscultation. CARDIOVASCULAR: Regular rate and rhythm noted. There no murmurs rubs or gallops normal S1 normal S2 GASTROINTESTINAL: The abdomen is mildly distended but soft. Right sided tenderness is noted, but no guarding or rigidity is appreciated. BACK: No midline tenderness. RIght CVA tenderness to palpation. ROM appears intact. MUSCULOSKELETAL/EXTREMITIES: There is no evidence of gross deformity. Full range of motion is noted in the hips and shoulders. SKIN: There is no obvious evidence of any rash. There are no petechiae, pallor or cyanosis noted. NEUROLOGIC: Patient is awake alert and oriented x3. [Strength is symmetric. Patellar reflexes are 2+ bilaterally.] Medical Decision & Procedures ER Provider Diagnostic Interpretation: Radiology results as stated below per my review and radiologist interpretation: KUB CLINICAL HISTORY: right flank paain pain COMPARISON STUDY: No previous studies for comparison. FINDINGS: The soft tissues, psoas shadows, renal outlines and intestinal gas pattern appear normal. There is no evidence for bowel obstruction. No abnormal abdominal calcifications are seen. IMPRESSION: Normal study. The above report was generated using voice recognition software. It may contain grammatical, syntax or spelling errors. Electronically signed by: Osvaldo Wilde M.D. 06/16/2018 8:14 PM Dictated Date/Time: 06/16/2018 8:14 PM (JOSE R/BLAD)RETROPERITON COMP HISTORY: Flank pain right flank pain COMPARISON: None. FINDINGS: Right kidney: Maximum dimension 9.9 cm. No evidence for hydronephrosis. Normal corticomedullary differentiation and cortical thickness. Left kidney: Maximum dimension 11.17 m. No evidence for hydronephrosis. Normal corticomedullary differentiation and cortical thickness. Bladder: No bladder wall thickening. The bilateral ureteral jets were identified. IMPRESSION: Normal study The above report was generated using voice recognition software. It may contain grammatical, syntax or spelling errors. Electronically signed by: Osvaldo Wilde M.D. 06/16/2018 10:58 PM Dictated Date/Time: 06/16/2018 10:58 PM Laboratory Results 06/16/18 15:57 Red Blood Count 5.34, Mean Corpuscular Volume 80.3, Mean Corpuscular Hemoglobin 26.0, Mean Corpuscular Hemoglobin Concent 32.4, Mean Platelet Volume 11.4, Neutrophils (%) (Auto) 67.7, Lymphocytes (%) (Auto) 27.0, Monocytes (%) (Auto) 4.1, Eosinophils (%) (Auto) 0.7, Basophils (%) (Auto) 0.1, Neutrophils # (Auto) 4.77, Lymphocytes # (Auto) 1.90, Monocytes # (Auto) 0.29, Eosinophils # (Auto) 0.05, Basophils # (Auto) 0.01 06/16/18 15:57 Test 06/16/18 15:57 06/16/18 20:18 White Blood Count 7.05 K/uL (4.8-10.8) Red Blood Count 5.34 M/uL (4.2-5.4) Hemoglobin 13.9 g/dL (12.0-16.0) Hematocrit 42.9 % (37-47) Mean Corpuscular Volume 80.3 fL (80-100) Mean Corpuscular Hemoglobin 26.0 pg (25-34) Mean Corpuscular Hemoglobin Concent 32.4 g/dl (32-36) Platelet Count 202 K/uL (130-400) Mean Platelet Volume 11.4 fL (7.4-10.4) Neutrophils (%) (Auto) 67.7 % Lymphocytes (%) (Auto) 27.0 % Monocytes (%) (Auto) 4.1 % Eosinophils (%) (Auto) 0.7 % Basophils (%) (Auto) 0.1 % Neutrophils # (Auto) 4.77 K/uL (1.4-6.5) Lymphocytes # (Auto) 1.90 K/uL (1.2-3.4) Monocytes # (Auto) 0.29 K/uL (0.11-0.59) Eosinophils # (Auto) 0.05 K/uL (0-0.5) Basophils # (Auto) 0.01 K/uL (0-0.2) RDW Standard Deviation 41.1 fL (36.4-46.3) RDW Coefficient of Variation 14.0 % (11.5-14.5) Immature Granulocyte % (Auto) 0.4 % Immature Granulocyte # (Auto) 0.03 K/uL (0.00-0.02) Anion Gap 9.0 mmol/L (3-11) Est Creatinine Clear Calc Drug Dose 115.7 ml/min Estimated GFR () 116.4 Estimated GFR (Non- 100.4 BUN/Creatinine Ratio 11.2 (10-20) Calcium Level 9.5 mg/dl (8.5-10.1) Total Bilirubin 0.4 mg/dl (0.2-1) Direct Bilirubin 0.1 mg/dl (0-0.2) Aspartate Amino Transf (AST/SGOT) 21 U/L (15-37) Alanine Aminotransferase (ALT/SGPT) 43 U/L (12-78) Alkaline Phosphatase 131 U/L (45-117) Total Protein 8.6 gm/dl (6.4-8.2) Albumin 4.4 gm/dl (3.4-5.0) Human Chorionic Gonadotropin, Qual NEG (NEG) Urine Color YELLOW Urine Appearance CLEAR (CLEAR) Urine pH 8.0 (4.5-7.5) Urine Specific [place] 1.008 (1.000-1.030) Urine Protein NEG (NEG) Urine Glucose (UA) NEG (NEG) Urine Ketones NEG (NEG) Urine Occult Blood NEG (NEG) Urine Nitrite NEG (NEG) Urine Bilirubin NEG (NEG) Urine Urobilinogen NEG (NEG) Urine Leukocyte Esterase NEG (NEG) Laboratory results per my review. Medications Administered Medications (Trade) Dose Ordered Sig/Meron Route Start Time Stop Time Status Last Admin Dose Admin Ondansetron HCl (Zofran Inj) 4 mg NOW STAT IV 06/16/18 19:42 06/16/18 19:43 DC 06/16/18 20:13 4 MG Sodium Chloride 1,000 ml @ 999 mls/hr Q1H1M STAT IV 06/16/18 19:42 06/16/18 20:46 DC 06/16/18 20:10 999 MLS/HR Morphine Sulfate (MoRPHine SULFATE INJ) 4 mg Q15M PRN IV 06/16/18 19:45 06/17/18 00:04 DC 06/16/18 22:13 4 MG Oxycodone HCl (Roxicodone Immediate Rel 5MG Home Pack) 1 homepack UD ONCE PO 06/16/18 23:15 06/16/18 23:16 DC 06/16/18 23:13 1 HOMEPACK Ondansetron HCl (ZOFRAN ODT 4MG Home Pack) 1 homepack UD ONCE PO 06/16/18 23:15 06/16/18 23:16 DC 06/16/18 23:13 1 HOMEPACK ED Course 1940: The patient was evaluated in room B7. A complete history and physical examination were performed. 1941: Ordered Sodium Chloride 1000 ml @ 999 mls/hr IV, Zofran 4 mg IV 1944: Ordered Morphine Sulfate 4 mg IV 2307: Upon reevaluation, the patient is resting. I discussed the results and treatment plan with her. She verbalized agreement of the treatment plan. She was discharged home. 2314: Ordered Ondansetron HCl 1 homepack PO, Oxycodone HCl 1 homepack PO Medical Decision Differential diagnosis: Etiologies such as renal colic, appendicitis, diverticulitis, mesenteric ischemia, aortic pathology, infections, inflammatory bowel disease, PUD, biliary pathology, UTI, as well as others were entertained. Nursing notes reviewed. The patient is a 38-year-old female who presented to the emergency department for an evaluation of difficulty urinating and flank pain. The patient states that she has had similar episodes in the past with urinary tract infection as well as kidney stone. I reviewed the patient's previous electronic medical records does show that she had a kidney stone and a CAT scan approximately 1 year ago. She had other kidney stones noted on that scan. In an attempt to avoid over radiation in this patient and ultrasound was obtained as well as a KUB. The patient's urine was not consistent with an infection and her ultrasound did not appear to be consistent with a kidney stone. I discussed patient's laboratory and radiographic studies with her. She was treated with IV fluids IV pain medicine and IV anti-medics. On subsequent reevaluation she was feeling much better. I am not sure if this represents a recently passed kidney stone versus musculoskeletal pain however her abdominal exam was not consistent with an acute surgical abdomen. She was encouraged to rest and avoid any strenuous activity. I also encouraged her to continue using Motrin and Tylenol for pain and follow-up with her family doctor. I also encouraged her to return to the emergency department immediately if symptoms change worsen or the need arises. Medication Reconcilliation Current Medication List: was personally reviewed by me Blood Pressure Screening Patient's blood pressure: Normal blood pressure Blood pressure disposition: Did not require urgent referral Impression Primary Impression: Right flank pain Scribe Attestation The scribe's documentation has been prepared under my direction and personally reviewed by me in its entirety. I confirm that the note above accurately reflects all work, treatment, procedures, and medical decision making performed by me. Departure Information Dispostion Home / Self-Care Referrals Kristen Crespo PA-C (PCP) Forms HOME CARE DOCUMENTATION FORM, IMPORTANT VISIT INFORMATION Patient Instructions My [facility] Additional Instructions Continue all medications as prescribed. Call your family doctor in the morning to schedule a follow-up appointment. Rest and avoid any strenuous activity. Drink plenty of clear liquids.
[2018-06-16 20:49] LABS: ALBUMIN 4.4 gm/dl (3.4-5.0); CALCIUM 9.5 mg/dl (8.5-10.1); CREATININE 0.75 mg/dl (0.60-1.20); POTASSIUM 3.3 mmol/L (3.5-5.1); TOTAL PROTEIN 8.6 gm/dl (6.4-8.2)
[2018-06-16 22:56] VITALS: BP 112/79; PULSE 78; O2SAT 99
--- NOTE | 2018-06-16 23:00 | DIAGNOSTIC IMAGING REPORT ---
(JOSE R/BLAD)RETROPERITON COMP HISTORY: Flank pain right flank pain COMPARISON: None. FINDINGS: Right kidney: Maximum dimension 9.9 cm. No evidence for hydronephrosis. Normal corticomedullary differentiation and cortical thickness. Left kidney: Maximum dimension 11.17 m. No evidence for hydronephrosis. Normal corticomedullary differentiation and cortical thickness. Bladder: No bladder wall thickening. The bilateral ureteral jets were identified. IMPRESSION: Normal study The above report was generated using voice recognition software. It may contain grammatical, syntax or spelling errors. Electronically signed by: Osvaldo Wilde M.D. 06/16/2018 10:58 PM Dictated Date/Time: 06/16/2018 10:58 PM
[2018-06-16] MEDS ORDERED: ONDANSETRON HOME PACK 4MG OD TAB PO ONE (23:15)
[2018-06-16] MEDS ORDERED: OXYCODONE IR HOME PACK PO ONE (23:15)
== END 2018-06-16 23:16 | disposition home or self-care (01) ==
LOC: C.EDB 19:33
DX: R10.84 Generalized abdominal pain (principal); E11.9 Type 2 diabetes mellitus without complications; Z91.030 Bee allergy status; Z88.8 Allergy status to other drugs, medicaments and biological substances

== ENCOUNTER 2018-06-19 13:34 | Emergency (ER) | payer OTHER ==
[~2018-06-19] VITALS: Ht 157.5 cm; Wt 106.2 kg
[~2018-06-19 13:34] MED LIST changes: +ESOM20CA PO; +LPT40 PO; -LSN25 PO; -NXM/40 PO
[2018-06-19 13:50] VITALS: TEMP 36.7; Ht 157.5 cm; Wt 106.2 kg
[2018-06-19] MEDS ORDERED: ONDANSETRON 4MG OD TAB PO STA (14:06)
[2018-06-19] MEDS ORDERED: OXYCODONE HCL IR 5 MG TAB (IMMEDIATE RELEASE) PO STA (14:06)
--- NOTE | 2018-06-19 15:14 | DIAGNOSTIC IMAGING REPORT ---
CT SCAN OF THE ABDOMEN AND PELVIS WITHOUT IV CONTRAST CLINICAL HISTORY: Right flank pain. COMPARISON STUDY: Abdominal CT dated 07/03/2017. Renal ultrasound dated 06/16/2018. TECHNIQUE: CT scan of the abdomen and pelvis is performed from the lung bases to the proximal femora. Images are reviewed in the axial, sagittal, and coronal planes. IV contrast was not administered for this examination. A dose lowering technique was utilized adhering to the principles of ALARA. CT DOSE: 1243.08 mGycm FINDINGS: Lung bases: The heart is normal in size and without pericardial effusion. The lung bases are clear. Liver: The unenhanced liver is enlarged, measuring 21.7 cm in length. The liver demonstrates diffusely diminished attenuation consistent with hepatic steatosis. There is no intrahepatic biliary ductal dilatation. Gallbladder: Surgically absent noting clips in the gallbladder fossa. Spleen: Normal in size and attenuation. Pancreas: Unremarkable. Adrenal glands: Unremarkable. Kidneys: The unenhanced kidneys are normal in size and without hydronephrosis. There are at least 3 small nonobstructing calculi are identified in each kidney. These measure up to 3 mm. No ureteral stone is identified. There is no evidence of contour deforming renal mass lesion. Abdominal vasculature: The abdominal aorta is normal in course and caliber. Bowel: The small bowel and colon are normal in course and caliber. The appendix is not identified and reported surgically absent Peritoneum: There is no intraperitoneal free air or abdominal ascites. Lymphadenopathy: None. Pelvic viscera: The bladder, uterus, and adnexa are normal as visualized. Skeletal structures: There is mild lumbosacral spondylosis. No lytic or blastic lesions are seen. IMPRESSION: 1. There are no acute infectious or inflammatory findings in the abdomen or pelvis. 2. There are small bilateral nonobstructing renal calculi. No ureteral stone or hydronephrosis is seen. 3. Hepatomegaly and hepatic steatosis. Electronically signed by: Marino Hill M.D. 06/19/2018 3:13 PM Dictated Date/Time: 06/19/2018 3:06 PM
[2018-06-19] MEDS ORDERED: TOPI25TA99 PO (15:41)
[2018-06-19] MEDS ORDERED: NAPR-22 PO (15:41)
[2018-06-19 16:25] VITALS: BP 122/65; PULSE 61; O2SAT 96
--- NOTE | 2018-06-19 17:59 | EMERGENCY ROOM VISIT NOTE ---
History Report prepared by Yobani: Asiya Santos Under the Supervision of: Dr. Corey Owen D.O. First contact with patient: 13:53 Chief Complaint: ABDOMINAL PAIN Stated Complaint: LOWER ABD PAIN, RT FLANK PAIN, VOMITING History of Present Illness The patient is a 38 year old female who presents to the Emergency Room with complaints of worsening lower abdominal pain starting a few days ago. The patient states that she was at the ED a few days ago for right sided flank pain. She reports that she had an x-ray and ultrasound done that were negative. She reports that she went to her PCP yesterday and they thought maybe she had a stone stuck in the ureter or she has a viral infection. She reports that the pain is now also in her lower abdomen and she cannot keep any liquids down. She describes the pain "like something is stuck." She reports that she has been taking Naproxen with little relief and last took it 9 hours ago. The patient complains of intermittent fevers. The patient notes that her last ureteral stent was placed in 2015 and she last saw her urologist in August of last year. The patient denies hematuria. Source of History: patient Onset: a few days ago Position: abdomen (lower) Quality: other ("something stuck") Timing: worsening Modifying Factors (Relieving): other (Naproxen) Associated Symptoms: + fevers, + vomiting, No urinary symptoms Review of Systems See HPI for pertinent positives & negatives. A total of 10 systems reviewed and were otherwise negative. Past Medical & Surgical Medical Problems: (1) Appendectomy (2) Cholecystectomy (3) Diabetes mellitus, type II (4) Endometriosis (5) ITP (idiopathic thrombocytopenic purpura) (6) Kidney stone (7) Migraine (8) Migraines (9) Pyelonephritis (10) Shingles (11) TTP (thrombotic thrombopenic purpura) (12) UTI (urinary tract infection) Surgical Problems: (1) H/O: hysterectomy (2) History of appendectomy (3) History of cholecystectomy (4) S/P total hysterectomy and bilateral salpingo-oophorectomy Family History Diabetes mellitus FH: cancer FH: gallbladder disease FH: lung disease Heart disease Hypertension Kidney disease Kidney stones Seizures Social History Smoking Status: Never Smoker Alcohol Use: occasionally Drug Use: none Marital Status: Housing Status: lives with family Occupation Status: employed Current/Historical Medications Scheduled Atorvastatin (Lipitor), 40 MG PO DAILY Esomeprazole Magnesium (Nexium), 20 MG PO DAILY Metformin HCl (Metformin HCl ER), 500 MG PO BID Naproxen (Naprosyn), 500 MG PO BIDM Topiramate (Topiramate), 25 MG PO QAM Topiramate (Topamax ), 50 MG PO HS Scheduled PRN Epinephrine (Epipen), 0.3 MG IM UD PRN for ALLERGIC REACTION Rizatriptan Benzoate (Maxalt), 5 MG PO UD PRN for Headache Allergies Coded Allergies: BEE STING (Verified Allergy, Severe, ANAPHYLAXIS, 03/25/18) USES EPIPEN Macrolides and Ketolides (Verified Allergy, Severe, anaphylaxis- see comment, 03/25/18) azithromycin caused throat swelling; erythromycin caused hives Azithromycin (Verified Allergy, Intermediate, ANAPHYLAXIS, 03/25/18) Erythromycin (Verified Allergy, Intermediate, ANAPHYLAXIS, 03/25/18) Physical Exam Vital Signs Date Time Temp Pulse Resp B/P (MAP) Pulse Ox O2 Delivery O2 Flow Rate FiO2 06/19/18 16:25 61 18 122/65 96 06/19/18 15:31 62 18 107/68 97 Room Air 06/19/18 13:50 36.7 76 20 116/81 99 Room Air Physical Exam GENERAL: Patient is awake, alert, and in no acute distress. Patient is resting comfortably and showing no signs of anxiety EYES: The conjunctivae are clear. The pupils are round and reactive. EARS, NOSE, MOUTH AND THROAT: The nose is without any evidence of any deformity. Mucous membranes are moist. Tongue is midline NECK: The neck is nontender and supple. RESPIRATORY: Normal respiratory effort is noted. There is no evidence of wheezing rhonchi or rales to auscultation. CARDIOVASCULAR: Regular rate and rhythm noted. There no murmurs rubs or gallops normal S1 normal S2 GASTROINTESTINAL: The abdomen is mildly distended, but soft. Right upper and right lower quadrant tenderness to palpation. No guarding or rigidity appreciated. Bowel sounds are present in all quadrants. BACK: Right CVA tenderness to percussion. No midline tenderness was noted. ROM intact. MUSCULOSKELETAL/EXTREMITIES: There is no evidence of gross deformity. Full range of motion is noted in the hips and shoulders. SKIN: There is no obvious evidence of any rash. There are no petechiae, pallor or cyanosis noted. NEUROLOGIC: Patient is awake alert and oriented x3. Strength is symmetric. Patellar reflexes are 2+ bilaterally. Medical Decision & Procedures ER Provider Diagnostic Interpretation: Radiology results as stated below per my review and radiologist interpretation: CT SCAN OF THE ABDOMEN AND PELVIS WITHOUT IV CONTRAST CLINICAL HISTORY: Right flank pain. COMPARISON STUDY: Abdominal CT dated 07/03/2017. Renal ultrasound dated 06/16/2018. TECHNIQUE: CT scan of the abdomen and pelvis is performed from the lung bases to the proximal femora. Images are reviewed in the axial, sagittal, and coronal planes. IV contrast was not administered for this examination. A dose lowering technique was utilized adhering to the principles of ALARA. CT DOSE: 1243.08 mGycm FINDINGS: Lung bases: The heart is normal in size and without pericardial effusion. The lung bases are clear. Liver: The unenhanced liver is enlarged, measuring 21.7 cm in length. The liver demonstrates diffusely diminished attenuation consistent with hepatic steatosis. There is no intrahepatic biliary ductal dilatation. Gallbladder: Surgically absent noting clips in the gallbladder fossa. Spleen: Normal in size and attenuation. Pancreas: Unremarkable. Adrenal glands: Unremarkable. Kidneys: The unenhanced kidneys are normal in size and without hydronephrosis. There are at least 3 small nonobstructing calculi are identified in each kidney. These measure up to 3 mm. No ureteral stone is identified. There is no evidence of contour deforming renal mass lesion. Abdominal vasculature: The abdominal aorta is normal in course and caliber. Bowel: The small bowel and colon are normal in course and caliber. The appendix is not identified and reported surgically absent Peritoneum: There is no intraperitoneal free air or abdominal ascites. Lymphadenopathy: None. Pelvic viscera: The bladder, uterus, and adnexa are normal as visualized. Skeletal structures: There is mild lumbosacral spondylosis. No lytic or blastic lesions are seen. IMPRESSION: 1. There are no acute infectious or inflammatory findings in the abdomen or pelvis. 2. There are small bilateral nonobstructing renal calculi. No ureteral stone or hydronephrosis is seen. 3. Hepatomegaly and hepatic steatosis. Electronically signed by: Marino Hill M.D. 06/19/2018 3:13 PM Dictated Date/Time: 06/19/2018 3:06 PM Laboratory Results Test 06/19/18 14:45 Urine Color YELLOW Urine Appearance CLEAR (CLEAR) Urine pH 6.5 (4.5-7.5) Urine Specific Urich 1.013 (1.000-1.030) Urine Protein NEG (NEG) Urine Glucose (UA) NEG (NEG) Urine Ketones NEG (NEG) Urine Occult Blood NEG (NEG) Urine Nitrite NEG (NEG) Urine Bilirubin NEG (NEG) Urine Urobilinogen NEG (NEG) Urine Leukocyte Esterase NEG (NEG) Laboratory results per my review. Medications Administered Medications (Trade) Dose Ordered Sig/Meron Route Start Time Stop Time Status Last Admin Dose Admin Ondansetron HCl (Zofran Odt) 4 mg NOW STAT PO 06/19/18 14:06 06/19/18 14:07 DC 06/19/18 14:46 4 MG Oxycodone HCl (Roxicodone Immediate Rel Tab) 5 mg NOW STAT PO 06/19/18 14:06 06/19/18 14:07 DC 06/19/18 14:47 5 MG ED Course 1403: The patient was evaluated in room C4. A complete history and physical examination were performed. 1406: Ordered Oxycodone HCL 5 mg PO, Zofran Odt 4 mg PO. 1616: Upon reevaluation, the patient is resting comfortably. I discussed the results and treatment plan with her. She verbalized agreement of the treatment plan. The patient was discharged home. Medical Decision Differential diagnosis: Etiologies such as renal colic, appendicitis, diverticulitis, mesenteric ischemia, aortic pathology, infections, inflammatory bowel disease, PUD, biliary pathology, UTI, as well as others were entertained. Nursing notes reviewed. The patient's recent ER visit was reviewed. The patient is a 38-year-old female who presented to the emergency department for right-sided flank pain. The patient was seen recently by myself for right flank pain. At that time she did not have a CT the abdomen and pelvis because she has had so many over the last few years. She had an ultrasound as well as blood work and x-ray but no acute cause for her symptoms could be found. I discussed patient's laboratory and radiographic studies with her she was treated with pain medication as well as antiemetics. Because of her ongoing symptoms she was sent to the emergency department for CT abdomen and pelvis. I discussed the patient's CT report with her. No acute process could be found. She was encouraged to rest and avoid any strenuous activity. I also encouraged her to call her family doctor to schedule a follow-up appointment but return to the emergency department immediately if symptoms change worsen or the need arises. Medication Reconcilliation Current Medication List: was personally reviewed by me Blood Pressure Screening Patient's blood pressure: Normal blood pressure Blood pressure disposition: Did not require urgent referral Impression Primary Impression: Right flank pain Scribe Attestation The scribe's documentation has been prepared under my direction and personally reviewed by me in its entirety. I confirm that the note above accurately reflects all work, treatment, procedures, and medical decision making performed by me. Departure Information Dispostion Home / Self-Care Referrals Kristen Crespo PA-C (PCP) Forms Call Back Authorization, HOME CARE DOCUMENTATION FORM, IMPORTANT VISIT INFORMATION Patient Instructions My [facility] Additional Instructions Continue all medications as prescribed. Continue using Motrin and Tylenol as directed for pain. Follow-up with your family doctor soon as possible.
[2018-06-19] MEDS ORDERED: TPM25 PO (20:21)
== END 2018-06-19 16:26 | disposition home or self-care (01) ==
LOC: C.EDB 13:35 → C.EDC 16:26
DX: R10.31 Right lower quadrant pain (principal); E11.9 Type 2 diabetes mellitus without complications; D69.3 Immune thrombocytopenic purpura; Z91.030 Bee allergy status; Z88.8 Allergy status to other drugs, medicaments and biological substances

== ENCOUNTER 2018-11-20 22:38 | Observation (INO) ==
[2018-11-20] MEDS ORDERED: ONDANSETRON INJ 2 MG/ML 2 ML VIAL IV STA (22:57)
[2018-11-20] MEDS ORDERED: SODIUM CHLORIDE 0.9% 1000ML 2,000 ML IV SCH (23:00)
[2018-11-20] MEDS ORDERED: KETOROLAC (**for OR use only**) 30 MG/ML VIAL IV STA (23:26)
[2018-11-20] MEDS ORDERED: KETOROLAC TROMETHAMINE 15 MG/ML VIAL ONE (23:31)
[2018-11-20 23:34] LABS: Basophils # (auto) 0.01 K/uL (0-0.2); Basophils % (auto) 0.1 %; Eosinophils % (auto) 1.4 %; Hematocrit (blood only) 42.3 % (37-47); Hemoglobin 14.1 g/dL (12.0-16.0); Immature Granulocytes # (auto) 0.04 K/uL (0.00-0.02); Immature Granulocytes % (auto) 0.6 %; Lymphocytes # (auto) 2.38 K/uL (1.2-3.4); Lymphocytes % (auto) 33.3 %; Mean Corpuscular Hgb Conc 33.3 g/dL (32-36); Mean Platelet Volume 11.5 fL (7.4-10.4); Monocytes # (auto) 0.37 K/uL (0.11-0.59); Monocytes % (auto) 5.2 %; Neutrophils # (auto) 4.24 K/uL (1.4-6.5); Neutrophils % (auto) 59.4 %; Platelet Count 204 K/uL (130-400); RDW Coefficient of Variation 13.4 % (11.5-14.5); RDW Standard Deviation 40.2 fL (36.4-46.3); Red Blood Count 5.16 M/uL (4.2-5.4); White Blood Count 7.14 K/uL (4.8-10.8)
[2018-11-20 23:38] LABS: Appearance Urine Clear (Clear); Bacteria Urine Automated Negative (Negative); Bilirubin Urine Negative (Negative); Cast Urine Automated 0 /lpf (0-5); Color Urine Yellow; Epithelial Cell Urine Auto >30 /lpf (0-5); Glucose Urine UA Negative (Negative); Ketones Urine Negative (Negative); Leukocyte Esterase Urine Trace (Negative); Nitrite Urine Negative (Negative); Protein Urine Negative (Negative); Specific Gravity Urine 1.006 (1.000-1.030); Urobilinogen Urine Negative (Negative)
[2018-11-20 23:53] LABS: Alanine Aminotransferase 37 U/L (12-78); Albumin Level 3.8 gm/dl (3.4-5.0); Aspartate Aminotransferase 11 U/L (15-37); BUN Creatinine Ratio 9.5 (10-20); Blood Urea Nitrogen 8 mg/dl (7-18); Calcium 9.1 mg/dl (8.5-10.1); Carbon Dioxide 23 mmol/L (21-32); Chloride 112 mmol/L (98-107); Creatinine Clr Calc Pharmacy 107.3 ml/min; Est GFR (African American) 109.3; Est GFR (Non-African American) 94.3; Glucose 108 mg/dl (70-99); Potassium 3.5 mmol/L (3.5-5.1); Sodium 141 mmol/L (136-145)
[2018-11-20 23:55] LABS: Albumin Globulin Ratio 0.9 (0.9-2); Alkaline Phosphatase 124 U/L (45-117); Bilirubin,Total 0.2 mg/dl (0.2-1); Globulin 4.1 gm/dl (2.5-4.0); Total Protein 7.9 gm/dl (6.4-8.2)
[2018-11-21 00:12] LABS: Troponin I < 0.015 ng/ml (0-0.045)
--- NOTE | 2018-11-21 01:19 | Emergency Department Note ---
Entered by Isaias Alarcon acting as a scribe for History of Present Illness General Chief complaint: Vomiting Stated complaint: CHEST PAIN,SYNCOPE,VOMITING,WEAK Source: patient History of Present Illness Onset (ago): week(s) 1 Location: head Pain Consistency: + other (multiple episodes) Maximum Pain Intensity: 6 Quality: + other (syncope) Associated symptoms: + other (Positive for vomiting, headache, nausea, lightheadedness, blurry vision, feeling warm, fuzzy hearing, and chest pain. Negative for calf swelling and hemoptysis.) The patient is a 38 year old female who presents to the emergency department with complaints of multiple episodes of syncope beginning this Sunday. The patient states that she has been feeling sick for the last week. She complains of vomiting, a headache, and multiple episodes of syncope. She notes that she has lost consciousness four times in the last week. She reports that she has a history of gastroparesis and has been persistently vomiting since 06/2018. The patient states that she is often nauseous and vomits daily. She notes that she often becomes lightheaded after vomiting. She reports that she feels warm and like her blood pressure drops. The patient states that her vision goes blurry and her hearing goes fuzzy, but she notes that she is typically able to sit down before passing out. She reports that she had a sharp chest pain tonight at 1999 before she lost consciousness. The patient states that she has had similar episodes in the past. She notes that she has a history of anxiety, migraines, and diabetes as well as a cholecystectomy and appendectomy. She reports that her anxiety medication dosage was recently decreased. She denies any history of hypertension, high cholesterol, smoking, swelling of calves, recent trips, history of immobilization or recent surgery, prior history of DVT, hemoptysis, history of malignancy, or control/estrogen use. Home Medications Home Medications Medication Instructions Recorded Confirmed Type atorvastatin 40 mg PO HS 07/30/18 11/21/18 History epinephrine [EpiPen] 0.3 mg IM UD PRN 07/30/18 11/21/18 History metformin 500 mg PO DAILY 07/30/18 11/21/18 History ondansetron HCl 4 mg PO Q8 PRN 07/30/18 11/21/18 History rizatriptan [Maxalt-SENIOR INFORMATION SECURITY ENGINEER] 1 tab PO UD PRN 07/30/18 11/21/18 History topiramate [Topamax] 50 mg PO HS 07/30/18 11/21/18 History pantoprazole 40 mg PO BID 09/25/18 11/21/18 History metoclopramide HCl 5 mg PO DAILY PRN #10 tab 11/14/18 11/21/18 Rx buspirone 5 mg PO BID 11/21/18 11/21/18 History Allergies Allergy/AdvReac Type Severity Reaction Status Date / Time bee venom protein (honey bee) Allergy Severe ANAPHYLAXIS Verified 11/21/18 00:11 Macrolide Antibiotics Allergy Severe anaphylaxis- Verified 11/21/18 00:11 see comment erythromycin base Allergy Intermediate ANAPHYLAXIS Verified 11/21/18 00:11 mivacurium Allergy Intermediate ANAPHYLAXIS Verified 11/21/18 00:11 Past Med/Surg History Social History Current Living Situation: Spouse Feels Safe at Home: Yes Smoking Status: Never smoker Second Hand Exposure: Yes ("ALL FAMILY MEMBERS SMOKED") Hx Alcohol Use: No Hx Substance Use: No Beliefs That Will Affect Care: None Preferred Language: Maldivian Review of Systems See HPI for pertinent positives & negatives. and A total of 10 systems reviewed and were otherwise negative Physical Exam Vital Signs Vital Signs - 24 hr 11/20/18 22:46 11/20/18 23:20 11/20/18 23:36 Temperature 37.0 C Temperature Source Oral Sepsis Recent Fever Within 48 Hours No Sepsis New/Unexplained Change in Mental Status No Sepsis Action Taken by Nursing No Action Required Pulse Rate - Lying 108 H Pulse Rate - Sitting 101 H Pulse Rate - Standing 114 H Pulse Rate 104 H 88 Pulse Rate [Apical] Pulse Rhythm [Apical] Pulse Strength [Apical] Respiratory Rate 18 Respiratory Effort / Characteristics Non-Labored Spontaneous Respiratory Depth Normal Respiratory Pattern Blood Pressure - Lying 156/108 H Blood Pressure - Sitting 142/113 H Blood Pressure- Standing 155/105 H Blood Pressure 134/94 Blood Pressure [Right Arm] Blood Pressure Mean 107 Blood Pressure Mean [Right Arm] Pulse Oximetry 95 98 Oxygen Delivery Method Room Air Room Air 11/21/18 00:47 Temperature Temperature Source Sepsis Recent Fever Within 48 Hours Sepsis New/Unexplained Change in Mental Status Sepsis Action Taken by Nursing Pulse Rate - Lying Pulse Rate - Sitting Pulse Rate - Standing Pulse Rate Pulse Rate [Apical] 101 H Pulse Rhythm [Apical] Regular Pulse Strength [Apical] Normal Respiratory Rate 16 Respiratory Effort / Characteristics Non-Labored Spontaneous Respiratory Depth Normal Respiratory Pattern Regular Blood Pressure - Lying Blood Pressure - Sitting Blood Pressure- Standing Blood Pressure Blood Pressure [Right Arm] 140/92 Blood Pressure Mean Blood Pressure Mean [Right Arm] 108 Pulse Oximetry 98 Oxygen Delivery Method Room Air GENERAL: Sitting up in bed, alert, well appearing, well nourished, no distress, non-toxic EYE EXAM: normal conjunctiva. PERRL and EOM's intact. OROPHARYNX: no exudate, no erythema, lips, buccal mucosa, and tongue normal and mucous membranes are moist NECK: supple, no nuchal rigidity, no adenopathy, non-tender LUNGS: Clear to auscultation. Normal chest wall mechanics HEART: no murmurs, S1 normal and S2 normal ABDOMEN: abdomen soft, non-tender, normo-active bowel, sounds, no masses, no rebound or guarding. BACK: Back is symmetrical on inspection and there is no deformity, no midline tenderness, no CVA tenderness. SKIN: no rashes and no bruising UPPER EXTREMITIES: upper extremities are grossly normal. LOWER EXTREMITIES: No pitting edema. NEURO EXAM: Normal sensorium, cranial nerves II-XII intact, normal speech, no weakness of arms, no weakness of legs. No drift. Finger to nose intact. Gross sensation intact. Course Vital signs were reviewed and showed that the patient was tachycardic. The patients medical record was reviewed The above diagnostic studies were performed and reviewed. ED treatments and interventions as stated above. 2253: The patient was evaluated in room B11. A complete history and physical examination was performed. 0046:Upon reevaluation, the patient is stable. I discussed my findings with the patient and she understands and agrees with the treatment plan. Based on the patients age, coexisting illnesses, exam and lab findings the decision to treat as an inpatient was made. The patient remained stable while under my care. I discussed the patient's case with NORMA Urban. The patient will be evaluated for further management. Consultations Consultation #1: I reviewed the patient's case with NORMA Urban. He will evaluate the patient for further management. Time: 00:46 Administered Medications Discontinued Medications Sodium Chloride (Nss 1000ml) 2,000 mls @ 999 mls/hr IV .Q2H1M [facility] Stop: 11/21/18 01:00 Last Admin: 11/20/18 23:19 Dose: 999 mls/hr Ketorolac Tromethamine (Toradol (Or Use)) 15 mg IV NOW STA Stop: 11/20/18 23:27 Last Admin: 11/20/18 23:33 Dose: Not Given Ketorolac Tromethamine (Toradol) Confirm Administered Dose 15 mg .ROUTE .STK- MED ONE Stop: 11/20/18 23:32 Last Admin: 11/20/18 23:32 Dose: 15 mg Ondansetron HCl (Zofran) 4 mg IV NOW STA Stop: 11/20/18 22:58 Last Admin: 11/20/18 23:21 Dose: 4 mg Medical Decision Making Differential Diagnosis Differential diagnosis: Etiologies such as vasovagal event, infection, anemia, hypoglycemia, hypovolemia , electrolyte abnormalities, dysrhythmias, cardiac ischemia, cardiac tamponade, valvular heart disease, structural heart disease, seizure, vascular stenosis/ dissection, pulmonary embolism, intracerebral event, toxicological process, neurologic event, as well as others were entertained. Medical Records Attestation: I reviewed the patient's medical records. Home Medications Current Medication List: was personally reviewed by me Laboratory Data Attestation: I reviewed the patient's lab results. Result diagrams: 11/20/18 23:20 11/20/18 23:20 Lab Results 11/20/18 11/20/18 11/20/18 Range/Units 23:20 23:20 23:20 WBC 7.14 (4.8-10.8) K/uL RBC 5.16 (4.2-5.4) M/uL Hgb 14.1 (12.0-16.0) g/dL Hct 42.3 (37-47) % MCV 82.0 (80-100) fL MCH 27.3 (25-34) pg MCHC 33.3 (32-36) g/dL RDW Std Deviation 40.2 (36.4-46.3) fL RDW Coeff of Darryn 13.4 (11.5-14.5) % Plt Count 204 (130-400) K/uL MPV 11.5 H (7.4-10.4) fL Immature Gran % (Auto) 0.6 % Neut % (Auto) 59.4 % Lymph % (Auto) 33.3 % Pike % (Auto) 5.2 % Eos % (Auto) 1.4 % Baso % (Auto) 0.1 % Immature Gran # (Auto) 0.04 H (0.00-0.02) K/uL Neut # (Auto) 4.24 (1.4-6.5) K/uL Lymph # (Auto) 2.38 (1.2-3.4) K/uL Pike # (Auto) 0.37 (0.11-0.59) K/uL Eos # (Auto) 0.10 (0-0.5) K/uL Baso # (Auto) 0.01 (0-0.2) K/uL D-Dimer (0-500) ug/L FEU Sodium 141 (136-145) mmol/L Potassium 3.5 (3.5-5.1) mmol/L Chloride 112 H (98-107) mmol/L Carbon Dioxide 23 (21-32) mmol/L Anion Gap 6.0 (3-11) BUN 8 (7-18) mg/dl Creatinine 0.79 (0.6-1.2) mg/dl Est Cr Clr Drug Dosing 107.3 ml/min Est GFR ( Amer) 109.3 Est GFR (Non-Af Amer) 94.3 BUN/Creatinine Ratio 9.5 L (10-20) Glucose 108 H (70-99) mg/dl Calcium 9.1 (8.5-10.1) mg/dl Total Bilirubin 0.2 (0.2-1) mg/dl AST 11 L (15-37) U/L ALT 37 (12-78) U/L Alkaline Phosphatase 124 H (45-117) U/L Troponin I < 0.015 (0-0.045) ng/ml Total Protein 7.9 (6.4-8.2) gm/dl Albumin 3.8 (3.4-5.0) gm/dl Globulin 4.1 H (2.5-4.0) gm/dl Albumin/Globulin Ratio 0.9 (0.9-2) Lipase 115 (73-393) U/L HCG, Quant 2 mIU/ml Urine Color Urine Appearance (Clear) Urine pH (4.5-7.5) Ur Specific [place] (1.000-1.030) Urine Protein (Negative) Urine Glucose (UA) (Negative) Urine Ketones (Negative) Urine Blood (Negative) Urine Nitrite (Negative) Urine Bilirubin (Negative) Urine Urobilinogen (Negative) Ur Leukocyte Esterase (Negative) Urine WBC (Auto) (0-5) /hpf Urine RBC (Auto) (0-4) /hpf U Hyaline Cast (Auto) (0-5) /lpf U Epithel Cells (Auto) (0-5) /lpf Urine Bacteria (Auto) (Negative) POC Ur Test (NEG) 11/20/18 11/20/18 11/20/18 Range/Units 23:20 23:20 23:20 WBC (4.8-10.8) K/uL RBC (4.2-5.4) M/uL Hgb (12.0-16.0) g/dL Hct (37-47) % MCV (80-100) fL MCH (25-34) pg MCHC (32-36) g/dL RDW Std Deviation (36.4-46.3) fL RDW Coeff of Darryn (11.5-14.5) % Plt Count (130-400) K/uL MPV (7.4-10.4) fL Immature Gran % (Auto) % Neut % (Auto) % Lymph % (Auto) % Pike % (Auto) % Eos % (Auto) % Baso % (Auto) % Immature Gran # (Auto) (0.00-0.02) K/uL Neut # (Auto) (1.4-6.5) K/uL Lymph # (Auto) (1.2-3.4) K/uL Pike # (Auto) (0.11-0.59) K/uL Eos # (Auto) (0-0.5) K/uL Baso # (Auto) (0-0.2) K/uL D-Dimer < 190 (0-500) ug/L FEU Sodium (136-145) mmol/L Potassium (3.5-5.1) mmol/L Chloride (98-107) mmol/L Carbon Dioxide (21-32) mmol/L Anion Gap (3-11) BUN (7-18) mg/dl Creatinine (0.6-1.2) mg/dl Est Cr Clr Drug Dosing ml/min Est GFR ( Amer) Est GFR (Non-Af Amer) BUN/Creatinine Ratio (10-20) Glucose (70-99) mg/dl Calcium (8.5-10.1) mg/dl Total Bilirubin (0.2-1) mg/dl AST (15-37) U/L ALT (12-78) U/L Alkaline Phosphatase (45-117) U/L Troponin I (0-0.045) ng/ml Total Protein (6.4-8.2) gm/dl Albumin (3.4-5.0) gm/dl Globulin (2.5-4.0) gm/dl Albumin/Globulin Ratio (0.9-2) Lipase (73-393) U/L HCG, Quant mIU/ml Urine Color Yellow Urine Appearance Clear (Clear) Urine pH 7.0 (4.5-7.5) Ur Specific [place] 1.006 (1.000-1.030) Urine Protein Negative (Negative) Urine Glucose (UA) Negative (Negative) Urine Ketones Negative (Negative) Urine Blood Negative (Negative) Urine Nitrite Negative (Negative) Urine Bilirubin Negative (Negative) Urine Urobilinogen Negative (Negative) Ur Leukocyte Esterase Trace H (Negative) Urine WBC (Auto) 1-5 (0-5) /hpf Urine RBC (Auto) 5-10 H (0-4) /hpf U Hyaline Cast (Auto) 0 (0-5) /lpf U Epithel Cells (Auto) >30 H (0-5) /lpf Urine Bacteria (Auto) Negative (Negative) POC Ur Test NEG (NEG) Imaging Data Attestation: I personally reviewed and interpreted this imaging study as follows : My Impression: Portable AP Upright 1 View Chest X-RAY: No focal infiltrate. No pneumothorax. ECG Data Attestation: I personally reviewed and interpreted this ECG as follows: Indication: syncope Rate (beats per minute): 88 Rhythm: sinus rhythm Comparison ECG Date: from (11/14/2018) Change: no significant change Additional Comments: Normal axis, flipped T waves in the septal, anterior, and lateral leads. Blood Pressure Blood Pressure Findings: Elevated blood pressure Blood Pressure Disposition: elevated BP felt to be situational MDM Narrative Patient is a 38-year-old female who presents the ER for syncopal episode x4. She has had for these episodes over the past 3-4 days. She notes that tonight she did have a little bit of chest pain prior to passing out. She notes that she normally feels lightheaded warm/flushing when her vision becomes blurry. She does admit to intermittent vomiting daily which is unchanged from previous along with a persistent nausea all of which is been present since this past June. She has had a previous workup done in [place] from a cardiac standpoint. Currently she is completely neurologically intact. Labs were obtained and CBC along with BMP was unremarkable. D-dimer was negative. LFTs and troponin was normal. Lipase was normal. HCG was negative. UA was unremarkable. Patient was updated bedside. Chest x-ray was unremarkable. EKG did show ST depressions and flipped T waves in the septal anterior and lateral. Discussed with patient and the hospitalist for further evaluation due to syncope x4. Impression & Plan Syncope Discharge Plan Visit Data Chief Complaint: Vomiting Stated Complaint: CHEST PAIN,SYNCOPE,VOMITING,WEAK ED Provider: Albert Michelle Discharge Problem: Syncope Patient Disposition: Being Evaluated by Hospitalist Forms Stand Alone Forms: My [facility] Prescriptions Prescriptions: No Action atorvastatin 40 mg Tablet 40 mg PO HS RF: 0 metformin 500 mg Tablet 500 mg PO DAILY RF: 0 ondansetron HCl 4 mg Tablet 4 mg PO Q8 PRN (Reason: Nausea) RF: 0 rizatriptan [Maxalt-SENIOR INFORMATION SECURITY ENGINEER] 5 mg Tablet,Disintegrating 1 tab PO UD PRN (Reason: Migraine Headache) RF: 0 topiramate [Topamax] 50 mg Tablet 50 mg PO HS RF: 0 epinephrine [EpiPen] 0.3 mg/0.3 mL Auto-Injector 0.3 mg IM UD PRN (Reason: Allergic Reaction) RF: 0 pantoprazole 40 mg Tablet,Delayed Release (Dr/Ec) 40 mg PO BID RF: 0 metoclopramide HCl 5 mg tablet 5 mg PO DAILY PRN (Reason: nausea and vomiting) Qty: 10 RF: 0 buspirone 5 mg Tablet 5 mg PO BID RF: 0 Referrals Referrals: Kristen Crespo PA-C [Primary Care Provider] - The scribe's documentation has been prepared under my direction and personally reviewed by me in its entirety. I confirm that the note above accurately reflects all work, treatment, procedures, and medical decision making performed by me.
--- NOTE | 2018-11-21 04:05 | History & Physical Report ---
Date of Service November 21, 2018 Assessment & Plan (1) Syncope: 38 year old female was admitted on 21 November 2017 for frequent syncope. Syncope: Patient notes daily episodes of syncope beginning on . Has a history of the same many years ago but seemingly self-resolved. Says was previously evaluated for seizures perhaps 12 years ago and thinks an EEG was normal at that time. No clear focal neuro deficits on exam. CT head was unremarkable on . Suspect syncope, though seizures or complex migraines remain on the differential. - Will order EEG, non-contrast MRI of the brain, and MRA of the brain. - Will order lyme and Ehrlichiosis testing. Ordered homocysteine, lupus anticoagulant, Factor V leiden labs. - Placed consult to neurology as well. Chest pain: Patient says she had some few seconds long chest pain just prior to her syncope on around 8 pm. - In ED here, EKG shows normal sinus rhythm 88, incomplete right bundle-branch block, normal MO interval, QTc 464. Quite similar to comparison on . TnI negative. She denies any chest symptoms after waking from syncope. - In ED here, patient was afebrile, briefly tachycardic, normal SpO2 on room air , and noted to have no leukocytosis, negative d-dimer, and urine hCG negative. Recent TSH normal. pCXR appears clear (formal rads read pending). - Underwent a negative stress echocardiogram in Aug 2017. - In ED, was treated with 2 L normal saline, Toradol, and Zofran. Migraines: PMH same. Says she has had daily unremitting headache since . due to the syncope episodes, question of complex migraines. At home she is on Maxalt and Topamax. Continue here. Elevated alkaline phosphatase: Admit AP 124. AST and ALT were normal. History of cholecystectomy. She does have some mild RUQ ttp, though, which she says is chronic. She is actively followed by GI as an outpatient. - Recommend lab recheck and repeat abdominal exam. Do not suspect an acute surgical issue. Microscopic hematuria: UA RBCs 5-10 but multiple epithelial cells. No evidence of infection. Does have a history of kidney stones. Recommend routine recheck. Ongoing medical issues: - Gastroparesis, chronic gastric ulcer: She notes daily emesis associated with this. Underwent upper endoscopy on by Dr. Reagan. Report notes normal esophagus, nonbleeding gastric ulcers, normal duodenum. At home she is on pantoprazole, MiraLAX, Carafate with meals, as well as Zofran and Reglan. We will continue here. - Diabetes type 2: At home is on metformin. We will hold as inpatient and order sliding scale insulin. - Hyperlipidemia: At home is on atorvastatin. Continue here. - Anxiety: At home is on buspirone. Continue here. - ITP: Back in 2004. - Bipolar disorder: Patient says she was diagnosed with this around 2013 but has not been on any related medication for years. - Kidney stones. Code status: Full code Diet: Regular DVT prophy: Lovenox PT/OT: Deferred Disbo: Admit to [facility] (2) Chest pain: (3) Migraines: (4) Elevated alkaline phosphatase level: (5) Microscopic hematuria: (6) Gastroparesis: (7) Chronic gastric ulcer: (8) Diabetes mellitus, type II: (9) Hyperlipidemia: (10) Anxiety: (11) ITP (idiopathic thrombocytopenic purpura): (12) Bipolar disorder: (13) Kidney stones: History of Present Illness Primary Care Provider: Kristen Crespo 38-year-old female presents with concerns for recurrent fainting. - Patient notes that since Nov she has had one syncopal episode per day, most recently the day prior to admit at 8 PM. This was unwitnessed. She says that she had a prodrome of feeling warm, hearing a "wa wa " sound, and some blurry vision prior to passing out. She thinks she was on the floor for about 10 minutes and awoke with her dog licking her face. - Patient says that she had similar episodes about 5 years ago, underwent some level of evaluation, but says that they self-resolved. She was on propranolol around that time but has not been on it for years. - Patient says she was evaluated for seizures perhaps 12 years ago. She thinks she had an EEG at that time which was normal. She does not recall with these most recent passing out episodes any bowel or bladder incontinence or any tongue biting. - With today's particular episode, she says that she had a sharp left-sided chest pain that lasted for a few seconds just prior to this event. She denied concurrent shortness of breath. She says upon waking and up until the present she has had no chest pain, shortness of breath, or chest symptoms. When asked about concurrent symptoms, she says that sometimes both of her hands tingle and her arms feel subjectively weak. - She also notes an ongoing self-described migraine headache that began on , has yet to resolve, has not particularly worsened, and continues to present. She says she has a known history of migraines. - She denies any recent fevers, known trauma, feeling of illness, and does not know of any particular reason why these fainting episodes have returned. - As a side note, patient says that she has daily vomiting related to her gastroparesis. She is actively being followed by Dr. Reagan of gastroenterology. She underwent an upper endoscopy in September and says she is on track for another one in late November. Past medical history includes syncope, anxiety, migraines, diabetes, gastroparesis, chronic gastric ulcer, kidney stones, hyperlipidemia, anxiety, ITP, bipolar disorder. Past surgical history includes cholecystectomy, appendectomy, bilateral tubal ligation, colonoscopy, eye surgery, EGD, lithotripsy x2, tonsillectomy and adenoidectomy, STEFANI/BSO, ureteral stent placement. Social history includes denying tobacco use, alcohol use, and says lives at home with spouse. Allergies Allergy/AdvReac Type Severity Reaction Status Date / Time bee venom protein (honey bee) Allergy Severe ANAPHYLAXIS Verified 11/21/18 00:11 Macrolide Antibiotics Allergy Severe anaphylaxis- Verified 11/21/18 00:11 see comment erythromycin base Allergy Intermediate ANAPHYLAXIS Verified 11/21/18 00:11 mivacurium Allergy Intermediate ANAPHYLAXIS Verified 11/21/18 00:11 Home Medications Home Medications Medication Instructions Recorded Confirmed Type atorvastatin 40 mg PO HS 07/30/18 11/21/18 History epinephrine [EpiPen] 0.3 mg IM UD PRN 07/30/18 11/21/18 History metformin 500 mg PO DAILY 07/30/18 11/21/18 History ondansetron HCl 4 mg PO Q8 PRN 07/30/18 11/21/18 History rizatriptan [Maxalt-STAVE LOG RIPSAW OPERATOR] 1 tab PO UD PRN 07/30/18 11/21/18 History topiramate [Topamax] 50 mg PO HS 07/30/18 11/21/18 History pantoprazole 40 mg PO BID 09/25/18 11/21/18 History metoclopramide HCl 5 mg PO DAILY PRN #10 tab 11/14/18 11/21/18 Rx buspirone 5 mg PO BID 11/21/18 11/21/18 History Past Med/Surg History Social History Current Living Situation: Spouse Feels Safe at Home: Yes Smoking Status: Never smoker Second Hand Exposure: Yes ("ALL FAMILY MEMBERS SMOKED") Hx Alcohol Use: No Hx Substance Use: No Beliefs That Will Affect Care: None Preferred Language: Japanese Communication Ability: Effective Review of Systems Constitutional: Denies fevers, chills, focal weakness Eyes: See HPI. ENT: Denies any ear/nose/throat pain or difficulty speaking or swallowing Respiratory: Denies any dyspnea, cough, hemoptysis Cardiovascular: See HPI. Gastrointestinal: See HPI. Musculoskeletal: Denies any acute extremity pains or myalgias Skin: Denies any known acute rashes or lesions Neuro: See HPI. Psych: Denies any recent depression or anxiety Physical Exam 2 Vital Signs (Past 24 Hours): Last Vital Signs Temp 37.0 C 11/20/18 22:46 Pulse 88 11/21/18 01:45 Resp 16 11/21/18 01:45 BP 140/92 11/21/18 00:47 Pulse Ox 98 11/21/18 01:45 Physical Exam: GENERAL: Awake, alert, well-appearing, conversing easily, in no acute distress HENT: Normocephalic, atraumatic. Oropharynx unremarkable. EYES: Normal conjunctiva. Sclera non-icteric. NECK: Inspection normal. Supple and full ROM. No nuchal rigidity. CARDIAC: +S1S2 RRR, no murmurs. RESPIRATORY: Clear to auscultation. No wheezes or rales. Normal respiratory effort. GI: +BS, soft, non-distended. Mildly ttp in the RUQ. No rebound or guarding. EXTREMITIES: No pedal edema or calf tenderness. Moving all extremities naturally and easily. NEURO: No gross neuro deficits. Lines: PIV. Results & Data Laboratory Results 11/20/18 11/20/18 11/20/18 Range/Units 23:20 23:20 23:20 WBC (4.8-10.8) K/uL RBC (4.2-5.4) M/uL Hgb (12.0-16.0) g/dL Hct (37-47) % MCV (80-100) fL MCH (25-34) pg MCHC (32-36) g/dL RDW Std Deviation (36.4-46.3) fL RDW Coeff of Darryn (11.5-14.5) % Plt Count (130-400) K/uL MPV (7.4-10.4) fL Immature Gran % (Auto) % Neut % (Auto) % Lymph % (Auto) % Glenn % (Auto) % Eos % (Auto) % Baso % (Auto) % Immature Gran # (Auto) (0.00-0.02) K/uL Neut # (Auto) (1.4-6.5) K/uL Lymph # (Auto) (1.2-3.4) K/uL Glenn # (Auto) (0.11-0.59) K/uL Eos # (Auto) (0-0.5) K/uL Baso # (Auto) (0-0.2) K/uL D-Dimer < 190 (0-500) ug/L FEU Sodium (136-145) mmol/L Potassium (3.5-5.1) mmol/L Chloride (98-107) mmol/L Carbon Dioxide (21-32) mmol/L Anion Gap (3-11) BUN (7-18) mg/dl Creatinine (0.6-1.2) mg/dl Est Cr Clr Drug Dosing ml/min Est GFR ( Amer) Est GFR (Non-Af Amer) BUN/Creatinine Ratio (10-20) Glucose (70-99) mg/dl Calcium (8.5-10.1) mg/dl Total Bilirubin (0.2-1) mg/dl AST (15-37) U/L ALT (12-78) U/L Alkaline Phosphatase (45-117) U/L Troponin I (0-0.045) ng/ml Total Protein (6.4-8.2) gm/dl Albumin (3.4-5.0) gm/dl Globulin (2.5-4.0) gm/dl Albumin/Globulin Ratio (0.9-2) Lipase (73-393) U/L HCG, Quant mIU/ml Urine Color Yellow Urine Appearance Clear (Clear) Urine pH 7.0 (4.5-7.5) Ur Specific [place] 1.006 (1.000-1.030) Urine Protein Negative (Negative) Urine Glucose (UA) Negative (Negative) Urine Ketones Negative (Negative) Urine Blood Negative (Negative) Urine Nitrite Negative (Negative) Urine Bilirubin Negative (Negative) Urine Urobilinogen Negative (Negative) Ur Leukocyte Esterase Trace H (Negative) Urine WBC (Auto) 1-5 (0-5) /hpf Urine RBC (Auto) 5-10 H (0-4) /hpf U Hyaline Cast (Auto) 0 (0-5) /lpf U Epithel Cells (Auto) >30 H (0-5) /lpf Urine Bacteria (Auto) Negative (Negative) POC Ur Test NEG (NEG) 11/20/18 11/20/18 11/20/18 Range/Units 23:20 23:20 23:20 WBC 7.14 (4.8-10.8) K/uL RBC 5.16 (4.2-5.4) M/uL Hgb 14.1 (12.0-16.0) g/dL Hct 42.3 (37-47) % MCV 82.0 (80-100) fL MCH 27.3 (25-34) pg MCHC 33.3 (32-36) g/dL RDW Std Deviation 40.2 (36.4-46.3) fL RDW Coeff of Darryn 13.4 (11.5-14.5) % Plt Count 204 (130-400) K/uL MPV 11.5 H (7.4-10.4) fL Immature Gran % (Auto) 0.6 % Neut % (Auto) 59.4 % Lymph % (Auto) 33.3 % Glenn % (Auto) 5.2 % Eos % (Auto) 1.4 % Baso % (Auto) 0.1 % Immature Gran # (Auto) 0.04 H (0.00-0.02) K/uL Neut # (Auto) 4.24 (1.4-6.5) K/uL Lymph # (Auto) 2.38 (1.2-3.4) K/uL Glenn # (Auto) 0.37 (0.11-0.59) K/uL Eos # (Auto) 0.10 (0-0.5) K/uL Baso # (Auto) 0.01 (0-0.2) K/uL D-Dimer (0-500) ug/L FEU Sodium 141 (136-145) mmol/L Potassium 3.5 (3.5-5.1) mmol/L Chloride 112 H (98-107) mmol/L Carbon Dioxide 23 (21-32) mmol/L Anion Gap 6.0 (3-11) BUN 8 (7-18) mg/dl Creatinine 0.79 (0.6-1.2) mg/dl Est Cr Clr Drug Dosing 107.3 ml/min Est GFR ( Amer) 109.3 Est GFR (Non-Af Amer) 94.3 BUN/Creatinine Ratio 9.5 L (10-20) Glucose 108 H (70-99) mg/dl Calcium 9.1 (8.5-10.1) mg/dl Total Bilirubin 0.2 (0.2-1) mg/dl AST 11 L (15-37) U/L ALT 37 (12-78) U/L Alkaline Phosphatase 124 H (45-117) U/L Troponin I < 0.015 (0-0.045) ng/ml Total Protein 7.9 (6.4-8.2) gm/dl Albumin 3.8 (3.4-5.0) gm/dl Globulin 4.1 H (2.5-4.0) gm/dl Albumin/Globulin Ratio 0.9 (0.9-2) Lipase 115 (73-393) U/L HCG, Quant 2 mIU/ml Urine Color Urine Appearance (Clear) Urine pH (4.5-7.5) Ur Specific [place] (1.000-1.030) Urine Protein (Negative) Urine Glucose (UA) (Negative) Urine Ketones (Negative) Urine Blood (Negative) Urine Nitrite (Negative) Urine Bilirubin (Negative) Urine Urobilinogen (Negative) Ur Leukocyte Esterase (Negative) Urine WBC (Auto) (0-5) /hpf Urine RBC (Auto) (0-4) /hpf U Hyaline Cast (Auto) (0-5) /lpf U Epithel Cells (Auto) (0-5) /lpf Urine Bacteria (Auto) (Negative) POC Ur Test (NEG) Code Status & VTE Plan Code Status Full code VTE Prophylaxis Plan VTE Prophylaxis will be ordered: Yes Supervising Physician Co-Signing Physician Notes Attending addendum: I have physically seen this patient, have supervised the medical residents activities, and agree with the H&P unless as otherwise noted. Assessment and Plan: Recurrent syncopal episodes/daily headache-- Most recent round of episodes began on November 14, and patient reports had 4 episodes within the past [address] scan of head performed on November 14 was negative. Will order an EEG, MRI of the brain without contrast, and MRA of the brain without contrast. Order Lyme, ehrlichiosis, lupus anticoagulant, anticardiolipin antibody, homocystine and beta-2 microglobulin. Consult neurology. Aspirin daily. Chest pain-- The patient will be admitted to telemetry for serial cardiac enzymes, serial EKG's, cardiac rhythm monitoring and a 2-D echocardiogram with Dopplers. Remainder of orders and notations as noted. Resident Activity Tracking Resident Involvement: Resident Care Provided Care Provided: [facility] Medicine _ (1) Syncope Encounter type: Syncope type: unspecified Qualified Code(s): R55 - Syncope and collapse
[2018-11-21] MEDS ORDERED: CARBOHYDRATES FOR HYPOGLYCEMIA PO PRN (04:58)
[2018-11-21] MEDS ORDERED: DEXTROSE 50% 50 ML SYRINGE IV PRN (04:58)
[2018-11-21] MEDS ORDERED: GLUCOSE 10 TABS/TUBE PO PRN (04:58)
[2018-11-21] MEDS ORDERED: ACETAMINOPHEN 325 MG TAB PO PRN (04:58)
[2018-11-21] MEDS ORDERED: METOCLOPRAMIDE HCL 5 MG TABLET PO PRN (04:58)
[2018-11-21] MEDS ORDERED: ONDANSETRON INJ 2 MG/ML 2 ML VIAL IV PRN (04:58)
[2018-11-21] MEDS ORDERED: GLUCAGON FOR INJ 1 MG VIAL SQ PRN (04:58)
[2018-11-21] MEDS ORDERED: GLUCOSE 40% GEL 15 GM TUBE PO PRN (04:58)
[2018-11-21] MEDS ORDERED: PNEUMOCOCCAL ADMINISTRATION CHARGE ONE (05:30)
[2018-11-21] MEDS ORDERED: INFLUENZA ADMINISTRATION CHARGE ONE (05:30)
[2018-11-21] MEDS ORDERED: PNEUMOCOCCAL POLYSACCHARIDES 25 MCG/0.5 ML VIAL/SYR IM ONE (05:30)
[2018-11-21] MEDS ORDERED: INFLUENZA VIRUS QUAD VACCINE 0.5 ML SYR IM ONE (05:30)
[2018-11-21 05:59] LABS: Prothrombin Time 10.3 Seconds (9.0-12.0)
--- NOTE | 2018-11-21 07:02 | XRay Report ---
SINGLE VIEW CHEST CLINICAL HISTORY: Dyspnea. FINDINGS: An AP, portable, upright chest radiograph is compared to study dated 11/14/2018. Partial degr aded The cardiomediastinal silhouette is unremarkable. The lungs and pleural spaces are clear. No pne umothorax is seen. The bony thorax is grossly intact. IMPRESSION: No active disease in the chest. Electronically signed by: Marino Hill M.D. 11/21/2018 7:01 AM
--- NOTE | 2018-11-21 07:03 | Magnetic Resonance Report ---
MR brain wo con HISTORY: 38 years-old Female syncope episodes acute syncope with fall acute weakness and numbness of the bilateral upper extremities COMPARISON: MRA head of same day, CT head 11/14/2017 TECHNIQUE: Multiplanar multisequence MRI of the brain was obtained without the use of IV contrast. FINDINGS: No restricted diffusion to suggest acute or subacute infarction. Midline structures including the cor pus callosum, brainstem, optic chiasm, pituitary and pineal glands appear unremarkable on the sagitta l T1 series. No cerebellar tonsillar herniation. Imaged cervical spine is unremarkable. No acute intracranial hemorrhage, midline shift, abnormal extra-axial collections, hydrocephalus or i ntracranial mass. No significant T2/FLAIR signal abnormalities about the brain parenchyma. Major flow voids appear patent. Soft tissues, skull and orbits are unremarkable. Mastoid air cells are clear. M inimal mucosal thickening of the ethmoid air cells. IMPRESSION: No acute intracranial abnormality. The above report was generated using voice recognition software. It may contain grammatical, syntax o r spelling errors. Electronically signed by: Devin Biggs M.D. 11/21/2018 7:02 AM
--- NOTE | 2018-11-21 07:09 | Magnetic Resonance Report ---
Brain MRA HISTORY: syncope episodes TECHNIQUE: 3-D [id number] MRA of the brain was performed without contrast. COMPARISON STUDY: None. FINDINGS: Visualized intracranial internal carotid arteries, distal vertebral arteries, and basilar a rtery are widely patent. There is no significant stenosis, occlusion, or aneurysm seen within the antwon ateral ACAs, MCAs, or charge coordinator. IMPRESSION: No significant stenosis, occlusion, or aneurysm within the [place]. Electronically signed by: Jluis Crooks M.D. 11/21/2018 7:08 AM
[2018-11-21] MEDS: SUCRALFATE 1 GM TAB PO SCH ×4 (09:27→20:48)
[2018-11-21] MEDS: TOPIRAMATE 50 MG TAB PO SCH ×2 (09:28→20:47)
[2018-11-21] MEDS: POLYETHYLENE (MIRALAX) 17 GM PACK PO SCH (09:28)
[2018-11-21] MEDS: PANTOprazole 40 MG TAB PO SCH ×2 (09:28→20:47)
[2018-11-21] MEDS: INSULIN ASPART 100 UNITS/ML 3 ML PEN SC SCH ×4 (09:31→20:49)
[2018-11-21] MEDS: ENOXAPARIN INJ 40 MG/0.4 ML SYR SQ SCH (09:34)
[2018-11-21] MEDS ORDERED: METOCLOPRAMIDE HCL INJ 5 MG/ML 2 ML VIAL IV STA ×2 (10:06→16:41)
[2018-11-21] MEDS ORDERED: SUMAtriptan succinate 50 MG TAB PO STA ×2 (10:06→16:42)
--- NOTE | 2018-11-21 17:40 | Neurology Consultation ---
Date of Consultation November 21, 2018 Assessment & Plan (1) Syncope: This is a 38-year-old female with recurrent syncope. For the most part I think it is less likely that this is seizure or epilepsy. Does tend to occur more in the upright position which suggests more of an orthostatic component. Certainly with her diabetes and history of gastroparesis could consider some sort of autonomic dysfunction contributing to syncope (such as POTS), or other causes of orthostatic syncope. Recommendations: Recommend tilt table test to evaluate for autonomic cardiac or orthostatic causes for syncope. This can be done as an outpatient. 48-hour ambulatory EEG as an outpatient to evaluate for possible seizure etiology Instructed the patient no driving since she is having recurrent syncopal events that are uncontrollable. In terms of headaches could consider retrying propranolol to see if this would be helpful for both her syncopal events and migraine headache prophylaxis. Caution with topiramate as this can cause kidney stones and the patient already has a history of kidney stones Follow-up in neurology clinic for additional management of migraine headaches. Thank you for allowing me to participate in this patient's care. If there is any questions or concerns, feel free to call/page me. History of Present Illness Reason for Consultation: Syncope Attending Physician: Edmundo Gee History of Present Illness This is a 38-year-old female who presents for evaluation of recurrent syncope. Patient reports that she first started to get syncope when she was in her preteen years. Tends to have bouts of syncope followed by periods of time in which she does not have syncope. Reports that she did not have any syncope for about 5 years before recurrent syncope in the last week. Remotely has had an episode of urinary incontinence with syncope. No tongue biting. Reports that she feels a warm sensation before passing out and her hearing gets distorted as well as her vision. Can have a sense of lightheadedness. Sometimes laying down will help but reports that it does not always prevent the syncope. Typically she is out for only a few seconds and there is no confusion afterwards. She feels like her last episode though could have lasted 10 minutes. She reports that someone may have said that she was shaking in the past but this does not appear to be a typical reportable symptom. Most of the episodes tend to occur when she is standing but this week has been occurring when she is also sitting. Brain MRI done this admission was unremarkable. EEG done in 2002 was also unremarkable. Past workup with neurology and cardiology has been unremarkable. Reports that she was put on propranolol in the past for palpitations and may have helped syncopal episodes as well In addition the patient does have worsening headaches recently. She was put on topiramate by her primary care physician 6 months ago for headache prophylaxis. May have some tingling in her distal extremities in association. Patient describes her headaches with light and sound sensitivity. Does have nausea. Will have a throbbing quality. Has been told that there are migraines in the past. Sometimes will get visual aura of wavy lines. She reports that previously at most she would get a headache once a week but for the past week or so they have been fairly constant. Will get some muscular neck symptoms with headaches but denies any regular ongoing neck issues. No regular caffeine use. No jaw issues or pain. Patient does have a history of depression and anxiety. She has been on BuSpar since October. Past therapeutic trials: Excedrin Maxalt helps in the past but is not recently been taking the headache is way Imitrex given in the hospital seem to help Patient thinks that she has been on Effexor before but does not know if there is any problems or effect on headaches Amitriptyline did not help in the past. Propranolol was used in the past for palpitations but she does not remember if it helped headaches Past medical history significant for migraine headaches with aura, gastroparesis , gastric ulcer, diabetes, lipidemia, anxiety, bipolar, history of kidney stones No family history of seizures or epilepsy Social history: Patient is normally independent her activities of daily living. No tobacco use or alcohol use. No illegal drug use. Allergies Allergy/AdvReac Type Severity Reaction Status Date / Time bee venom protein (honey bee) Allergy Severe ANAPHYLAXIS Verified 11/21/18 00:11 Macrolide Antibiotics Allergy Severe anaphylaxis- Verified 11/21/18 00:11 see comment erythromycin base Allergy Intermediate ANAPHYLAXIS Verified 11/21/18 00:11 mivacurium Allergy Intermediate ANAPHYLAXIS Verified 11/21/18 00:11 Home Medications Home Medications Medication Instructions Recorded Confirmed Type atorvastatin 40 mg PO HS 07/30/18 11/21/18 History epinephrine [EpiPen] 0.3 mg IM UD PRN 07/30/18 11/21/18 History metformin 500 mg PO DAILY 07/30/18 11/21/18 History ondansetron HCl 4 mg PO Q8 PRN 07/30/18 11/21/18 History rizatriptan [Maxalt-CONTAINER FINISHING INSPECTOR] 1 tab PO UD PRN 07/30/18 11/21/18 History topiramate [Topamax] 50 mg PO HS 07/30/18 11/21/18 History pantoprazole 40 mg PO BID 09/25/18 11/21/18 History metoclopramide HCl 5 mg PO DAILY PRN #10 tab 11/14/18 11/21/18 Rx buspirone 5 mg PO BID 11/21/18 11/21/18 History Patient History Social History Current Living Situation: Spouse Feels Safe at Home: Yes Smoking Status: Never smoker Second Hand Exposure: Yes ("ALL FAMILY MEMBERS SMOKED") Hx Alcohol Use: No Hx Substance Use: No Beliefs That Will Affect Care: None Preferred Language: Croatian Communication Ability: Effective Review of Systems Complete review of systems otherwise negative except for the above-noted in HPI Physical Exam 2 Vital Signs (Past 24 Hours): Last Vital Signs Temp 36.6 C 11/21/18 14:44 Pulse 69 11/21/18 14:44 Resp 16 11/21/18 14:44 BP 130/84 11/21/18 14:44 Pulse Ox 97 11/21/18 14:44 Physical Exam: Gen.: Patient is alert and oriented in no acute distress sitting in bed Heart: Regular rate and rhythm Extremities: No gross deformities or rashes noted Neurological examination: Mental status: Patient is alert and oriented to person place and time. Able to give his own history. Attention concentration normal for the situation. Remote and recent memory intact Speech is fluent without any dysarthria or aphasia noted Cranial nerves: Visual dunn intact. Funduscopic examination was difficult to visualize. Pupils equally round and reactive to light. Extraocular muscles intact without nystagmus. No facial asymmetry noted. Facial sensation intact. Tongue midline. Good palatal elevation. Good shoulder shrug bilaterally. Hearing grossly intact voice. Strength: 5/5 both proximal and distal in all extremities .Tone is normal. Sensation: Grossly intact to light touch in all extremities Deep tendon reflexes: +2 in bilateral biceps and patellar. Toes are downgoing to plantar stimulation bilaterally Coordination: Patient has good finger to nose without dysmetria. Station within the bed is normal. Results & Data Diagnostic Findings MRI of the brain report and images reviewed by myself and normal 1 hour EEG was read by myself and normal _ (1) Syncope Encounter type: Syncope type: unspecified Qualified Code(s): R55 - Syncope and collapse
--- NOTE | 2018-11-21 17:43 | Procedure Note ---
EEG Procedure Note Date of Service November 21, 2018 Start / End Times Start Time: 8:20 AM End Time: 9:20 AM Referring Physician Devin Kraus History This is a 38-year-old female with recurrent episodes of syncope. 1hr EEG for further evaluation of possible seizure etiology. 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 PO UD PRN 07/30/18 11/21/18 History topiramate [Topamax] 50 mg PO HS 07/30/18 11/21/18 History pantoprazole 40 mg PO BID 09/25/18 11/21/18 History metoclopramide HCl 5 mg PO DAILY PRN #10 tab 11/14/18 11/21/18 Rx buspirone 5 mg PO BID 11/21/18 11/21/18 History Inpatient Medication List Acetaminophen (Tylenol) 650 mg PO Q4H PRN PRN Reason: pain/fever Stop: 12/21/18 04:57 Last Admin: 11/21/18 05:17 Dose: 650 mg Buspirone HCl (Buspar) 5 mg PO BID JULIETA Stop: 12/21/18 08:59 Last Admin: 11/21/18 09:28 Dose: 5 mg Enoxaparin Sodium (Lovenox) 40 mg SQ Q24H JULIETA Stop: 12/21/18 07:59 Last Admin: 11/21/18 09:34 Dose: 40 mg Insulin Aspart (Novolog Flexpen) 0 units SC ACHS JULIETA Stop: 12/21/18 07:29 Last Admin: 11/21/18 12:35 Dose: 1 units Admin: 11/21/18 09:31 Dose: 1 units Ondansetron HCl (Zofran) 4 mg IV Q6H PRN PRN Reason: Nausea Stop: 12/21/18 04:57 Last Admin: 11/21/18 05:20 Dose: 4 mg Pantoprazole Sodium (Protonix) 40 mg PO BID JULIETA Stop: 12/21/18 08:59 Last Admin: 11/21/18 09:28 Dose: 40 mg Polyethylene Glycol (Miralax Powder Packet) 17 gm PO DAILY JULIETA Stop: 12/21/18 08:59 Last Admin: 11/21/18 09:28 Dose: 17 gm Sucralfate (Carafate Tab) 1 gm PO QID JULIETA Stop: 12/21/18 08:59 Last Admin: 11/21/18 16:56 Dose: 1 gm Admin: 11/21/18 12:54 Dose: 1 gm Admin: 11/21/18 09:27 Dose: 1 gm Topiramate (Topamax) 50 mg PO BID JULIETA Stop: 12/21/18 08:59 Last Admin: 11/21/18 09:28 Dose: 50 mg Discontinued Medications Sodium Chloride (Nss 1000ml) 2,000 mls @ 999 mls/hr IV .Q2H1M JULIETA Stop: 11/21/18 01:00 Last Infusion: 11/21/18 01:33 Dose: 0 mls/hr Admin: 11/20/18 23:19 Dose: 999 mls/hr Influenza Virus Vaccine Quadrival (Flucelvax Quad Vaccine) 0.5 ml IM .ONCE ONE Stop: 11/21/18 05:31 Last Admin: 11/21/18 09:42 Dose: 0.5 ml Ketorolac Tromethamine (Toradol (Or Use)) 15 mg IV NOW STA Stop: 11/20/18 23:27 Last Admin: 11/20/18 23:33 Dose: Not Given Ketorolac Tromethamine (Toradol) Confirm Administered Dose 15 mg .ROUTE .STK- MED ONE Stop: 11/20/18 23:32 Last Admin: 11/20/18 23:32 Dose: 15 mg Metoclopramide HCl (Reglan) 10 mg IV ONE STA Stop: 11/21/18 10:07 Last Admin: 11/21/18 11:33 Dose: 10 mg Metoclopramide HCl (Reglan) 10 mg IV ONE STA Stop: 11/21/18 16:42 Last Admin: 11/21/18 16:59 Dose: 10 mg Ondansetron HCl (Zofran) 4 mg IV NOW STA Stop: 11/20/18 22:58 Last Admin: 01/09/19 23:21 Dose: 4 mg Pneumococcal Polyvalent Vaccine (Pneumovax-23) 25 mcg IM .ONCE ONE Stop: 11/21/18 05:31 Last Admin: 11/21/18 09:38 Dose: 25 mcg Sumatriptan Succinate (Imitrex) 50 mg PO ONE STA Stop: 11/21/18 10:07 Last Admin: 11/21/18 11:31 Dose: 50 mg Sumatriptan Succinate (Imitrex) 50 mg PO ONE STA Stop: 11/21/18 16:43 Last Admin: 11/21/18 16:56 Dose: 50 mg Description This is a 21 electrode EEG with a single channel dedicated to limited EKG. The electrodes were placed in accordance with the International 10-20 system. There was fairly persistent left temporal chain electrical artifact. At the start of the recording the patient was in an awake state. Background was well organized and composed of symmetric mixed alpha and beta frequencies. There was a symmetric well-formed moderate amplitude 8-9 hz posterior dominant rhythm that was reactive to eye opening and closure. Hyperventilation was not done. Intermittent photic stimulation at various frequencies produced no abnormalities. Sleep was indicated by vertex waves and symmetric sleep spindles Interpretation This is a normal 1 hour awake and asleep extended EEG. There was no electrographic seizures or epileptiform discharges. Clinical Correlation A normal EEG does not rule out epilepsy if there is a strong clinical suspicion.
--- NOTE | 2018-11-21 20:34 | Hospitalist Progress Note ---
Date of Service November 21, 2018 Assessment & Plan (1) Syncope: long history of such going back to teenage years. has had extensive w/u for this issue in the last decade including tilt table test, previous EEG, even monitors, etc -- all without identifying a specific cause. with that said neurocardiogenic syncope was suspected. she does have typical prodromal symptoms that fit with neurocardiogenic syncope. her orthostatic BPs are normal today, however. appreciate neuro consultation. they do not believe these events are seizures. they plan, however, to perform a 2-day ambulatory EEG and possibly repeat tilt table test as a precautionary measure. recommend an echo today. MRI brain/MRA brain noted to be NORMAL. could her current migraine play a role in her events? if this was basilar migraine, however, I would expect vertigo which she has not had. Present on Admission?: Yes (2) Migraines: imitrex with reglan prn for abortive Rx consider low-dose inderal for prophylaxis Present on Admission?: Yes (3) ITP (idiopathic thrombocytopenic purpura): history of such platelets now normal (4) Diabetes mellitus, type II: controlled (5) Gastroparesis: cont reglan (6) DVT prophylaxis: lovenox observe overnight likely d/c tomorrow Subjective patient's main complaint is that of a migraine which she has had for several days she takes triptans at home for abortive Rx with good results usually gave imitrex x 1 shortly after my AM rounds and it brought the headache down from an 8 to a 3 at that time a 2nd imitrex was given the patient denies any vertigo she reports that the daily episodes of syncope are typically preceded by multiple symptoms including a warm feeling, visual changes, hearing a "wa-wa" sound in her ear, feeling lightheaded, and then she passes out she has had syncope going back to her teenage years she had an equivacol tilt table test in 2010 denies any dizziness/presyncope today Constitutional: no fever and no chills Respiratory: no cough and no dyspnea Cardiovascular: no chest pain and no palpitations Gastrointestinal: + nausea; no abdominal pain Physical Exam 2 Vital Signs (Past 24 Hours): Last Vital Signs Temp 36.6 C 11/21/18 14:44 Pulse 69 11/21/18 14:44 Resp 16 11/21/18 14:44 BP 130/84 11/21/18 14:44 Pulse Ox 97 11/21/18 14:44 Constitutional: well developed, well nourished and + obese; no acute distress ENMT: external ear and nose normal, oropharynx normal Respiratory: normal respiratory effort, lungs clear to auscultation Cardiovascular: RRR, no murmur, no edema Heart Sounds: normal S1 and normal S2 Vessels: posterior tibial pulses present and dorsalis pedis pulses present; no JVD Gastrointestinal (Abdomen): normal bowel sounds, soft, nontender, no hepatosplenomegaly Neurologic: PERRL, EOMI, accommodation nl, no face palsy, no dysarthria deep tendon reflexes 2+ bilaterally and moves all extremities; no focal motor deficits Psychiatric: A+Ox3, euthymic affect Results & Data Laboratory Results Laboratory Results - last 24 hr 11/20/18 11/20/18 11/20/18 23:20 23:20 23:20 WBC 7.14 RBC 5.16 Hgb 14.1 Hct 42.3 MCV 82.0 MCH 27.3 MCHC 33.3 RDW Std Deviation 40.2 RDW Coeff of Darryn 13.4 Plt Count 204 MPV 11.5 H Immature Gran % (Auto) 0.6 Neut % (Auto) 59.4 Lymph % (Auto) 33.3 Arroyo % (Auto) 5.2 Eos % (Auto) 1.4 Baso % (Auto) 0.1 Immature Gran # (Auto) 0.04 H Neut # (Auto) 4.24 Lymph # (Auto) 2.38 Arroyo # (Auto) 0.37 Eos # (Auto) 0.10 Baso # (Auto) 0.01 Peripher Smr Path Cons PT INR D-Dimer Sodium 141 Potassium 3.5 Chloride 112 H Carbon Dioxide 23 Anion Gap 6.0 BUN 8 Creatinine 0.79 Est Cr Clr Drug Dosing 107.3 Est GFR ( Amer) 109.3 Est GFR (Non-Af Amer) 94.3 BUN/Creatinine Ratio 9.5 L Glucose 108 H POC Glucose Calcium 9.1 Total Bilirubin 0.2 AST 11 L ALT 37 Alkaline Phosphatase 124 H Troponin I < 0.015 Total Protein 7.9 Albumin 3.8 Globulin 4.1 H Albumin/Globulin Ratio 0.9 Lipase 115 HCG, Quant 2 Urine Color Urine Appearance Urine pH Ur Specific Kane Urine Protein Urine Glucose (UA) Urine Ketones Urine Blood Urine Nitrite Urine Bilirubin Urine Urobilinogen Ur Leukocyte Esterase Urine WBC (Auto) Urine RBC (Auto) U Hyaline Cast (Auto) U Epithel Cells (Auto) Urine Bacteria (Auto) POC Ur Test 11/20/18 11/20/18 11/20/18 23:20 23:20 23:20 WBC RBC Hgb Hct MCV MCH MCHC RDW Std Deviation RDW Coeff of Darryn Plt Count MPV Immature Gran % (Auto) Neut % (Auto) Lymph % (Auto) Arroyo % (Auto) Eos % (Auto) Baso % (Auto) Immature Gran # (Auto) Neut # (Auto) Lymph # (Auto) Arroyo # (Auto) Eos # (Auto) Baso # (Auto) Peripher Smr Path Cons PT INR D-Dimer < 190 Sodium Potassium Chloride Carbon Dioxide Anion Gap BUN Creatinine Est Cr Clr Drug Dosing Est GFR ( Amer) Est GFR (Non-Af Amer) BUN/Creatinine Ratio Glucose POC Glucose Calcium Total Bilirubin AST ALT Alkaline Phosphatase Troponin I Total Protein Albumin Globulin Albumin/Globulin Ratio Lipase HCG, Quant Urine Color Yellow Urine Appearance Clear Urine pH 7.0 Ur Specific Kane 1.006 Urine Protein Negative Urine Glucose (UA) Negative Urine Ketones Negative Urine Blood Negative Urine Nitrite Negative Urine Bilirubin Negative Urine Urobilinogen Negative Ur Leukocyte Esterase Trace H Urine WBC (Auto) 1-5 Urine RBC (Auto) 5-10 H U Hyaline Cast (Auto) 0 U Epithel Cells (Auto) >30 H Urine Bacteria (Auto) Negative POC Ur Test NEG 11/21/18 11/21/18 11/21/18 05:21 05:21 07:40 WBC RBC Hgb Hct MCV MCH MCHC RDW Std Deviation RDW Coeff of Darryn Plt Count MPV Immature Gran % (Auto) Neut % (Auto) Lymph % (Auto) Arroyo % (Auto) Eos % (Auto) Baso % (Auto) Immature Gran # (Auto) Neut # (Auto) Lymph # (Auto) Arroyo # (Auto) Eos # (Auto) Baso # (Auto) Peripher Smr Path Cons PT 10.3 INR 1.0 D-Dimer Sodium Potassium Chloride Carbon Dioxide Anion Gap BUN Creatinine Est Cr Clr Drug Dosing Est GFR ( Amer) Est GFR (Non-Af Amer) BUN/Creatinine Ratio Glucose POC Glucose 90 Calcium Total Bilirubin AST ALT Alkaline Phosphatase Troponin I Total Protein Albumin Globulin Albumin/Globulin Ratio Lipase HCG, Quant Urine Color Urine Appearance Urine pH Ur Specific Kane Urine Protein Urine Glucose (UA) Urine Ketones Urine Blood Urine Nitrite Urine Bilirubin Urine Urobilinogen Ur Leukocyte Esterase Urine WBC (Auto) Urine RBC (Auto) U Hyaline Cast (Auto) U Epithel Cells (Auto) Urine Bacteria (Auto) POC Ur Test 11/21/18 11/21/18 11/21/18 09:25 11:27 16:18 WBC RBC Hgb Hct MCV MCH MCHC RDW Std Deviation RDW Coeff of Darryn Plt Count MPV Immature Gran % (Auto) Neut % (Auto) Lymph % (Auto) Arroyo % (Auto) Eos % (Auto) Baso % (Auto) Immature Gran # (Auto) Neut # (Auto) Lymph # (Auto) Arroyo # (Auto) Eos # (Auto) Baso # (Auto) Peripher Smr Path Cons PT INR D-Dimer Sodium Potassium Chloride Carbon Dioxide Anion Gap BUN Creatinine Est Cr Clr Drug Dosing Est GFR ( Amer) Est GFR (Non-Af Amer) BUN/Creatinine Ratio Glucose POC Glucose 90 95 93 Calcium Total Bilirubin AST ALT Alkaline Phosphatase Troponin I Total Protein Albumin Globulin Albumin/Globulin Ratio Lipase HCG, Quant Urine Color Urine Appearance Urine pH Ur Specific Kane Urine Protein Urine Glucose (UA) Urine Ketones Urine Blood Urine Nitrite Urine Bilirubin Urine Urobilinogen Ur Leukocyte Esterase Urine WBC (Auto) Urine RBC (Auto) U Hyaline Cast (Auto) U Epithel Cells (Auto) Urine Bacteria (Auto) POC Ur Test 11/21/18 20:06 WBC RBC Hgb Hct MCV MCH MCHC RDW Std Deviation RDW Coeff of Darryn Plt Count MPV Immature Gran % (Auto) Neut % (Auto) Lymph % (Auto) Arroyo % (Auto) Eos % (Auto) Baso % (Auto) Immature Gran # (Auto) Neut # (Auto) Lymph # (Auto) Arroyo # (Auto) Eos # (Auto) Baso # (Auto) Peripher Smr Path Cons PT INR D-Dimer Sodium Potassium Chloride Carbon Dioxide Anion Gap BUN Creatinine Est Cr Clr Drug Dosing Est GFR ( Amer) Est GFR (Non-Af Amer) BUN/Creatinine Ratio Glucose POC Glucose 103 H Calcium Total Bilirubin AST ALT Alkaline Phosphatase Troponin I Total Protein Albumin Globulin Albumin/Globulin Ratio Lipase HCG, Quant Urine Color Urine Appearance Urine pH Ur Specific Kane Urine Protein Urine Glucose (UA) Urine Ketones Urine Blood Urine Nitrite Urine Bilirubin Urine Urobilinogen Ur Leukocyte Esterase Urine WBC (Auto) Urine RBC (Auto) U Hyaline Cast (Auto) U Epithel Cells (Auto) Urine Bacteria (Auto) POC Ur Test _ (1) Syncope Encounter type: Syncope type: unspecified Qualified Code(s): R55 - Syncope and collapse
[2018-11-21] MEDS ORDERED: ATORVASTATIN 40 MG TAB PO SCH (21:00)
[2018-11-22] MEDS: RIZATRIPTAN BENZOATE MLT 10 MG TAB PO PRN ×2 (01:41→11:32)
[2018-11-22] MEDS: ENOXAPARIN INJ 40 MG/0.4 ML SYR SQ SCH (08:28)
[2018-11-22] MEDS: TOPIRAMATE 50 MG TAB PO SCH (08:28)
[2018-11-22] MEDS: SUCRALFATE 1 GM TAB PO SCH ×2 (08:28→12:33)
[2018-11-22] MEDS: PANTOprazole 40 MG TAB PO SCH (08:28)
[2018-11-22] MEDS: POLYETHYLENE (MIRALAX) 17 GM PACK PO SCH (08:29)
[2018-11-22] MEDS: INSULIN ASPART 100 UNITS/ML 3 ML PEN SC SCH ×2 (08:32→12:33)
[2018-11-22 11:44] LABS: Lyme Ab IgG w/WB Rflx Negative (Negative); Lyme Ab IgM w/WB Rflx Negative (Negative)
--- NOTE | 2018-11-23 23:54 | Discharge Summary ---
Date of Service date of admission - November 21, 2018 date of discharge - November 22, 2018 Admission HPI Per Admitting Provider 38-year-old female with past history of syncope and extensive work-up for such who presented with concerns for recurrent fainting. Patient noted that since November 16 she has had one syncopal episode per day, most recently the day prior to admission, at 8 PM. This was unwitnessed. She says that she had a prodrome of feeling warm, hearing a "wa wa " sound, and had some blurry vision prior to passing out. She thinks she was on the floor for about 10 minutes and awoke with her dog licking her face. Patient stated that she had similar episodes about 5 years ago and underwent extensive evaluation including event monitors, tilt table testing, etc. She was placed on propranolol around that time but had not been on it for years. She also stated she was evaluated for seizures perhaps 12 years ago. She thinks she had an EEG at that time which was normal. She did not recall with these most recent passing out episodes any bowel or bladder incontinence or any tongue biting. With today's particular episode she noted that she had had a sharp left-sided chest pain that lasted for a few seconds just prior to the event. She denied concurrent shortness of breath. She said that upon waking and up until the present she had had no chest pain, shortness of breath, or chest symptoms. Lastly, she mentioned she had a migraine headache that began on , November 14, and had yet to resolve. She has a known history of migraines and typically takes triptans for such. Principal Diagnosis syncope Discharge Exam Constitutional well developed, well nourished and + obese; no acute distress ENMT external ear and nose normal, oropharynx normal Respiratory normal respiratory effort, lungs clear to auscultation Cardiovascular RRR, no murmur, no edema Heart Sounds: normal S1 and normal S2 Vessels: posterior tibial pulses present and dorsalis pedis pulses present; no JVD Gastrointestinal (Abdomen) normal bowel sounds, soft, nontender, no hepatosplenomegaly Neurologic PERRL, EOMI, accommodation nl, no face palsy, no dysarthria deep tendon reflexes 2+ bilaterally and moves all extremities; no focal motor deficits Psychiatric A+Ox3, euthymic affect Discharge Data Allergies Allergy/AdvReac Type Severity Reaction Status Date / Time bee venom protein (honey bee) Allergy Severe ANAPHYLAXIS Verified 11/21/18 00:11 Macrolide Antibiotics Allergy Severe anaphylaxis- Verified 11/21/18 00:11 see comment erythromycin base Allergy Intermediate ANAPHYLAXIS Verified 11/21/18 00:11 mivacurium Allergy Intermediate ANAPHYLAXIS Verified 11/21/18 00:11 Consultations neurology Ordered Studies 1. CT head - negative/normal. 2. MRI brain - normal, negative for stroke, tumor, etc. 3. MRA brain - normal; no stenosis, aneurysm, or dissection. 4. EEG - negative for seizure focus. 5. echocardiogram - EF 55-60%; normal diastolic function; no LVH; normal valve function. Hospital Course (1) Syncope: Long history of such going back to teenage years. Had extensive w/u for this issue in the last decade including tilt table test, previous EEG, event monitors, etc -- all without identifying a specific cause. Tilt table test was equivocal. With that said neurocardiogenic syncope was suspected in the past. She does have typical prodromal symptoms that fit with neurocardiogenic syncope. Her orthostatic BPs, however, were normal throughout her stay. During this stay she again underwent extensive work-up including CT/MRI brain, MRA head, echo, EEG, etc -- all studies were normal or negative. She was seen by neurology in consultation. Atypical seizures were NOT suspected. However, to be complete, they plan to perform a 2-day ambulatory EEG and possibly repeat a tilt table test as a precautionary measure. I entertained the possibility of a basilar migraine causing her dizziness/ syncope however she has not had discrete vertigo or ataxia which typically occurs with that entity. The patient did not have any presyncope or syncope episodes during this hospitalization. She was able to ambulate without difficulty prior to discharge. She will follow-up with neurology within 2-3 weeks of discharge. She was advised NOT to drive until cleared by neurology. She was asked to maintain good hydration, and was counseled that if she had any prodromal symptoms to another episode of syncope, she should immediately lie down with the hopes of avoiding loss of consciousness. (2) Migraines: For her status migraine she was treated with imitrex and anti-emetics. Her headache resolved prior to discharge. She remains on topamax for headache prophylaxis. (3) Diabetes mellitus, type II: controlled during her stay. (4) Gastroparesis: she will continue reglan or zofran and follow-up with [facility] as previously scheduled. (5) Bipolar disorder: this has been controlled for some time. (6) Gastric ulcer: history of such, remains on PPI twice daily. repeat EGD scheduled for 11/2018. Total Time Total Time Spent Total Time Spent (In Minutes): 35 Total Time Includes: Examination of the Patient, Discharge Planning and Medication Reconciliation Discharge Plan Discharge Items Patient Disposition: Home - Self-Care Reason For Visit: RECURRENT SYNCOPE (passing out spells) Discharge Diagnosis: Syncope, exact cause uncertain, but suspected to be "neurocardiogenic" (this is the most common cause of fainting spells) Discharge Goals: Diagnostic testing and Therapeutic intervention Activity: As commented below Activity Comment: do not swim or take a bath unattended due to risk of passing out in water Driving/Machine Use Comment: no driving until cleared by neurology Non-emergency contact: Primary Care Provider and Neurologist Call non-emergency contact if: you have any medication questions, your symptoms worsen and your temperature is above 100.5 Follow-up/Referrals: Mariano Dietz MD [Physician] - 12/24/18 11:45 am (Please, follow up at [facility] Neurology Office with Dr. Enoch Dietz on SundayDecember 24 at 12:00 pm (arrive 11:45 am). *This office is located at [address] [place] [address] in [place]. If you need to change this appointment, call the office at [phone].) Kristen Crespo PA-C [Primary Care Provider] - 11/25/18 9:15 am (Please, follow up with Kristen Crespo PA-C on SundayNovember 25 at 9:15 am. *If you need to change this appointment, call the office at [phone].) Diet: Carb Consistent or DM2 Addtl Provider Instructions: From Edmundo Gee - Hospitalist - You were treated at the hospital for "syncope". This is better known as a fainting spell or passing out spell. Your MRI of the brain, MRA head, echocardiogram, and EEG brain wave test were all normal. Your lab studies were normal. Neurology saw you in consult and did not feel your episodes were due to seizures. It is likely that your episodes are "neurocardiogenic" in etiology. This is one of the more common causes of passing out. At this time I recommend - 1. drink plenty of fluids on a daily basis. Some people recommend 20 ounces of gatorade daily. 2. consider wearing compression stockings on your legs especially during the cold, winter-time months. 3. if you have any symptoms of a passing out spell (warm, flushed feeling; change in vision or hearing; lightheaded; etc) immediately lie down and raise your feet/legs above the level of the heart. This often can prevent the passing out spell. 4. again no driving a car until cleared by neurology. For your migraine you can use imitrex in place of maxalt, if desired. Follow-up -- see separate section. Return to [facility] if - * you have additional episodes of passing out * you have uncontrolled headaches * you have fevers over 100.5 degrees * any other concerns Prescriptions: New sumatriptan succinate 50 mg tablet See Label Instructions .ROUTE .COMPLEX Qty: 14 RF: 0 Continue atorvastatin 40 mg Tablet 40 mg PO HS RF: 0 metformin 500 mg Tablet 500 mg PO DAILY RF: 0 ondansetron HCl 4 mg Tablet 4 mg PO Q8 PRN (Reason: Nausea) RF: 0 epinephrine [EpiPen] 0.3 mg/0.3 mL Auto-Injector 0.3 mg IM UD PRN (Reason: Allergic Reaction) RF: 0 pantoprazole 40 mg Tablet,Delayed Release (Dr/Ec) 40 mg PO BID RF: 0 metoclopramide HCl 5 mg tablet 5 mg PO DAILY PRN (Reason: nausea and vomiting) Qty: 10 RF: 0 buspirone 5 mg Tablet 5 mg PO BID RF: 0 Changed topiramate [Topamax] 50 mg Tablet 50 mg PO BID Qty: 60 RF: 0 Discontinued 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 [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] 5 mg Tablet,Disintegrating 1 tab PO UD PRN (Reason: Migraine Headache) RF: 0 Stand-Alone Forms: [facility] Discharge Orders: Discharge Order (Routine); Ordered 11/22/18 Ordered By: Edmundo Gee Admission Data Admit Date/Time: 11/21/18 04:06 Attending Provider: Edmundo Gee Admit Provider: Devin Pelayo Primary Care Provider: Kristen Crespo Other Providers: Nitish Mcbride III ; Timothy Sargent Service: Medical Other Interventions: Discharge Summary Assessment (RN) Last Done: 11/22/18 12:35 Pending Studies at Discharge: No DC Date/Time DO NOT enter until pt leaves facility: 11/22/18 13:43
[2018-11-26 10:45] LABS: Lupus Anticoagulant Negative (Negative)
== END 2018-11-22 13:43 | disposition home or self-care (01) ==
LOC: ED 22:38 → 4E 22:38 → SUATTDRO 11-21 04:06 → 4E 11-21 04:34